=== PATIENT | female | born 1975 | race Caucasian/White ===

== ENCOUNTER 2022-03-08 11:56 | Emergency (ER) | payer BC, SELFPAY ==
[2022-03-08] VITALS (11 sets, daily range): BP systolic 114–141; BP diastolic 77–91; PULSE 68–85; TEMP 36.4; O2SAT 96–100; BMI 32.5
--- OUTSIDE RECORDS SUMMARY | 2022-03-08 12:49 | XMS_ITS | Clinical Summary ---
:1975 Author Organization [facility] Address [address] [place] [address] Care Team Providers Name Role Phone Rohit Donato MD Primary Care Provider Allergies Active Allergy Reactions Severity Noted Date Comments Celecoxib 05/26/2020 Lansoprazole 05/27/2020 Latex 05/26/2020 Swelling, lip i tchiness Sulfa Drugs 05/26/2020 Medications Medication Sig Dispensed Refills Start Date End Date Status prochlorperazine Take 5 mg by 0 Active (COMPAZINE) 5 MG tablet mouth every 4 hours as needed for nausea or vomiting amphetamine-dextroamphet Take 20 mg by 0 Active amine (ADDERALL XR) 20 mouth daily MG 24 hr capsule ondansetron (ZOFRAN) 4 Take 4 mg by 0 Active MG tablet mouth every 6 hours as needed for nausea oxyCODONE-acetaminophen Take 1-2 tablets 0 Active (PERCOCET) 5-325 MG by mouth every 4 tablet hours as needed for severe pain Secukinumab (COSENTYX, 0 Active 300 MG DOSE, SC) tamsulosin (FLOMAX) 0.4 Take 0.4 mg by 0 Active MG capsule mouth daily pantoprazole sodium Take 40 mg by 0 Active (PROTONIX) 40 MG packet mouth daily OLOPATADINE HCL OP Apply 1 drop to 0 Active eye 2 times daily montelukast (SINGULAIR) Take 10 mg by 0 Active 10 MG tablet mouth At Bedtime glucosamine-chondroitin Take 1 capsule 0 Active 500-400 MG CAPS per by mouth daily capsule Flaxseed, Linseed, 0 A ctive (FLAXSEED OIL PO) magnesium oxide 400 MG Take 1 tablet by 0 Active CAPS mouth daily magnesium oxide 200 MG Take 400 mg by 0 Active TABS mouth daily Vitamin D, Take 2 tablets 0 Acti ve Cholecalciferol, 25 MCG by mouth daily (1000 UT) CAPS cetirizine (ZYRTEC) 10 Take 10 mg by 0 Active MG tablet mouth daily Vit-Fe Take 1 tablet by 0 Active Fumarate-FA ( mouth daily MULTIVITAMIN W/IRON) 27-0.8 MG tablet Social History Tobacco Use Types Packs/Day Years Used Date Smoking Tobacco: Never Smokeless Tobacco: Never Alcohol Use Standard Drinks/Week Comments Yes 0 (1 standard drink = 0.6 oz pure alcoho l) Sex Assigned at Date Recorded Not on file Last Filed Vital Signs Vital Sign Reading Time Taken Comments Blood Pressure 118/76 05/30/2020 2:00 PM [employer] Pulse 87 05/30/2020 2:00 PM [employer] Temperature 37.1 ??C (98.8 ??F) 05/30/2020 2:00 PM [employer] Respiratory Rate 16 05/30/2020 2:00 PM [employer] Oxygen Saturation 97% 05/30/2020 2:00 PM [employer] Inhaled Oxygen Concentration - - Weight 102.5 kg (226 lb) 05/30/2020 9:00 AM [employer] Height 175.3 cm (5' 9) 05/30/2020 9:00 AM [employer] Body Mass Index 33.37 05/30/2020 9:00 AM [employer] Plan of Treatment Health Maintenance Due Date Last Done Comments ADVANCE CARE PLANNING 1975 ANNUAL REVIEW OF HM ORDERS 1975 YEARLY PREVENTIVE VISIT 1975 COVID-19 Vaccine (#1) 1975 DTAP/TDAP/TD IMMUNIZATION 1988 07/01/1982, 01/11/1979 , (6 - Tdap) 07/11/1978, Additional history exists HIV SCREENING 1992 HEPATITIS C SCREENING 1995 PAP 1998 HEPATITIS B IMMUNIZATION (4 11/10/2003 10/24/2003, 09/15/19 04, of 4 - 4-dose series) 07/14/2003 PHQ-2 (once per calendar 05/13/2021 year) INFLUENZA VACCINE (#1) 2022 01/31/2009, 02/24/2008, 10/21/1997, Additional history exists IPV IMMUNIZATION Completed 06/02/1996, 06/13/1982, 01/11/1979, Additional history exists MENINGITIS IMMUNIZATION Aged Out 10/24/2003, 06/02/1996 N o longer eligible based on patient 's age to complete this topic Pneumococcal Vaccine: Aged Out No longer eligible Pediatrics (0 to 5 Years) based on patient's age and At-Risk Patients (6 to to co mplete this topic 64 Years) Insurance Payer Benefit Plan / Subscriber ID Effective Dates Phone Addre ss Type Group [place] [id number] 2018-Lyla [phone] [address] [address] [place]emnity t [address] [place] [address] Care Teams [employer] Civil [employer] Relationship Specialty Start Date End Date Rohit Donato MD PCP - General Family Medicine 05/30/20 [facility] [address] [place] [address]
--- OUTSIDE RECORDS SUMMARY | 2022-03-08 12:49 | XMS_ITS | Encounter Summary ---
:1975 Author Organization [place] Address [facility] [place] [address] Care Team Providers Name Role Phone Rohit Donato MD Primary Care Provider Reason for Visit Auth/Cert Specialty Diagnoses / Procedures Referred By Contact Refer red To Contact Surgery Diagnoses Kidney stone Kidney stone [N20.0] Sh Periop Services Procedures HC CYSTO/URETERO W/LITHOTRIPSY &INDWELL STENT INSRT HC FRAGMENTING OF KIDNEY STONE HC CYSTOSCOPY,INSERT URETERAL STENT CYSTOSCOPY, LEFT EXTRACORPOREAL SHOCK WAVE (ESWL), LEFT URETERAL CATHETER PLACEMENT, POSSIBLE URETERA [address] [place] [phone] Phone: Referral ID Status Reason Start Date Expiration Date Visits Requ ested Visits Authorized [id number] 1 1 Encounter Details Date Type Department Care Team Description 05/30/2020 Surgery [facility] Ramez Hutchins C YSTOSCOPY, LEFT [place] [facility] EXTRACORPOREAL SHOCK [facility] WAVE (ESWL), LEFT [address] LTD URETERAL CATHETER [address] [place] [phone] [address] [place] [phone] (Wo rk) Surgery Details Date/Time Status Location OR Service Patient Case Class Case Tr auma Class Type Case? 05/30/20 10:45 Posted OR OR M 15 Urology Same Day AM Surgery Panel 1 Procedure LRB Anes Op Region Wound Class Commen ts CYSTOSCOPY, LEFT Bilateral General Ureter II-Clean Contaminat ed EXTRACORPOREAL SHOCK WAVE (ESWL), LEFT URETERAL CATHETER PLACEMENT Surgeon Surgeon Role Service Panel Ramez Hutchins MD Primary Urology 1 Case Notes LITHO CHARGE ENTERED Special Needs Scheduled [place] Stone lj 05/23Under 297 lbs.[facility] PT STATES COVID POSITIVE 03/18/21 CALLING OFFICE TO GET RESULTS SE NT OVER 03/26/21 AB Unable to confirm laterality-left message on preop call documented in this encounter Social History Tobacco Use Types Packs/Day Years Used Date Smoking Tobacco: Never Smokeless Tobacco: Never Alcohol Use Standard Drinks/Week Comments Yes 0 (1 standard drink = 0.6 oz pure alcoho l) Sex Assigned at Date Recorded Not on file COVID-19 Exposure Response Date Recorded In the last month, have you been in contact with No / Unsure 05/30/2020 8:40 AM COST CONTROLLER someone who was confirmed or suspected to have Coronavirus / COVID-19? documented as of this encounter Last Filed Vital Signs Vital Sign Reading Time Taken Comments Blood Pressure 121/76 05/30/2020 9:00 AM COST CONTROLLER Pulse 70 05/30/2020 9:00 AM COST CONTROLLER Temperature 35.8 ??C (96.4 ??F) 05/30/2020 9:00 AM COST CONTROLLER Respiratory Rate 20 05/30/2020 9:00 AM COST CONTROLLER Oxygen Saturation 99% 05/30/2020 9:00 AM COST CONTROLLER Inhaled Oxygen Concentration - - Weight 102.5 kg (226 lb) 05/30/2020 9:00 AM COST CONTROLLER Height 175.3 cm (5' 9) 05/30/2020 9:00 AM COST CONTROLLER Body Mass Index 33.37 05/30/2020 9:00 AM COST CONTROLLER documented in this encounter Discharge Instructions Discharge InstructionsElyse Coffman RN - 05/30/2020 12:42 PM CST Same Day Surgery Discharge Instructions for Sedation and General Anesthesia ?? It's not unusual to feel dizzy, light-headed or faint for up to 24 hours after surgery or while taking pain medication. If you have these symptoms: sit for a few minutes before standing and have someone assist you when you get up to walk or use the bathroom. ?? You should rest and relax for the next 24 hours. We recommend you make arrangements to have an adult stay with you for at least 24 hours after your discharge. Avoid hazardous and strenuous activity. ?? DO NOT DRIVE any vehicle or operate mechanical equipment for 24 hours following the end of your surgery. Even though you may feel normal, your reactions may be affected by the medication you have received. ?? Do not drink alcoholic beverages for 24 hours following surgery. ?? Slowly progress to your regular diet as you feel able. It's not unusual to feel nauseated and/or vomit after receiving anesthesia. If you develop these symptoms, drink clear liquids (apple juice, jonny mercy, broth, 7-up, etc. ) until you feel better. If your nausea and vomiting persists for 24 hours, please notify your surgeon. ?? All narcotic pain medications, along with inactivity and anesthesia, can cause constipation. Drinking plenty of liquids and increasing fiber intake will help. ?? For any questions of a medical nature, call your surgeon. ?? Do not make important decisions for 24 hours. ?? If you had general anesthesia, you may have a sore throat for a couple of days related to the breathing tube used during surgery. You may use Cepacol lozenges to help with this discomfort. If it worsens or if you develop a fever, contact your surgeon. ?? If you feel your pain is not well managed with the pain medications prescribed by your surgeon, please contact your surgeon's office to let them know so they can address your concerns. Information for Patients Discharging with a Transderm Scopolamine Patch ??? Dry mouth is a common side effect. ??? Drowsiness is another common side effect especially when combined with pain medication. Please avoid activities that require mental alertness such as driving a car or making important legal decisions. ??? Since Scopolamine can cause temporary dilation of the pupils and blurred vision if it comes in contact with the eyes; be sure to wash your hands thoroughly with soap and water immediately after handling the patch. When you remove your patch, please stick it to a tissue or paper towel for disposal. ??? Remove the patch immediately and contact a physician in the unlikely event that you experience symptoms of acute glaucoma (pain and reddening of the eyes, accompanied by dilated pupils). ??? Remove the patch if you develop any difficulties urinating. If you cannot urinate after removingyour patch, please notify your surgeon. ??? Remove the patch 24 hours after surgery. CoVid 19 Information We want to give you information regarding Covid. Please consult your primary care provider with any questions you might have. Patient who have symptoms (cough, fever, or shortness of breath), need to isolate for 7 days from when symptoms started OR 72 hours after fever resolves (without fever reducing medications) AND improvement of respiratory symptoms (whichever is longer). ?? Isolate yourself at home (in own room/own bathroom if possible) ?? Do Not allow any visitors ?? Do Not go to work or school ?? Do Not go to gnosticist, child welfare director centers, shopping, or other public places. ?? Do Not shake hands. ?? Avoid close and intimate contact with others (hugging, kissing). ?? Follow CDC recommendations for household cleaning of frequently touched services. After the initial 7 days, continue to isolate yourself from household members as much as possible. To continue decrease the risk of community spread and exposure, you and any members of your household should limit activities in public for 14 days after starting home isolation. You can reference the following CDC link for helpful home isolation/care tips: https://www.cdc.gov/coronavirus/2019-ncov/downloads/10Things.pdf Protect Others: ?? Cover Your Mouth and Nose with a mask, disposable tissue or wash cloth to avoid spreading germs to others. ?? Wash your hands and face frequently with soap and water Call Your Primary Doctor If: Breathing difficulty develops or you become worse. For more information about COVID19 and options for caring for yourself at home, please visit the CDCwebsite at https://www.cdc.gov/coronavirus/2019-ncov/about/orrni-twgv-xjih.html For more options for care at [facility], please visit our website at [email or web address] DISCHARGE INSTRUCTIONS FOLLOWING EXTRACORPOREAL SHOCK LITHOTRIPSY (ESWL) Your stone(s) has been fragmented into many tiny pieces, which must now pass in your urine. Usually this process is uneventful. Most fragments pass in the first one or two week, but some may continue to pass for three months or more. Some pain or discomfort may accompany the passage of these fragments. To aid in the passage of fragments, drink lots of fluid. Aim for 1 glass an hour for the next 1 to 2weeks (2 quarts or more a day). Most stone patients will benefit from a continued high fluid intake and urine output indefinitely, even after the fragments are gone. This helps prevent new stone formation. Strain your urine. Take the stone fragments to your urologist. They will have them analyzed to help determine the cause of your stone(s). You should walk around and resume every day activities. Activity may help the stone fragments pass. You should, however, avoid sports or really strenuous exercise for about a week, or at least until there is no more blood in your urine. You may resume regular diet. Call your urologist if you have: a. Persistent severe pain not relieved by oral medications. b. Fever (over 101??). c. Persistent vomiting. See your urologist as directed. They will need to take an x-ray to check your progress. Take your stone fragments to your follow-up appointment. If you have questions or concerns about your procedure, call Dr. Hutchins at [phone] CONTROLLER documented in this encounter Medications at Time of Discharge Medication Sig Dispensed Refills Start Date End Date amphetamine-dextroamphetam Take 20 mg by 0 ine (ADDERALL XR) 20 MG 24 mouth daily hr capsule cetirizine (ZYRTEC) 10 MG Take 10 mg by 0 tablet mouth daily Flaxseed, Linseed, 0 (FLAXSEED OIL PO) glucosamine-chondroitin Take 1 capsule by 0 500-400 MG CAPS per mouth daily capsule magnesium oxide 200 MG Take 400 mg by 0 TABS mouth daily magnesium oxide 400 MG Take 1 tablet by 0 CAPS mouth daily montelukast (SINGULAIR) 10 Take 10 mg by 0 MG tablet mouth At Bedtime OLOPATADINE HCL OP Apply 1 drop to 0 eye 2 times daily ondansetron (ZOFRAN) 4 MG Take 4 mg by mouth 0 tablet every 6 hours as needed for nausea oxyCODONE-acetaminophen Take 1-2 tablets 0 (PERCOCET) 5-325 MG tablet by mouth every 4 hours as needed for severe pain pantoprazole sodium Take 40 mg by 0 (PROTONIX) 40 MG packet mouth daily Vit-Fe Take 1 tablet by 0 Fumarate-FA ( mouth daily MULTIVITAMIN W/IRON) 27-0.8 MG tablet prochlorperazine Take 5 mg by mouth 0 (COMPAZINE) 5 MG tablet every 4 hours as needed for nausea or vomiting Secukinumab (COSENTYX, 300 0 MG DOSE, SC) tamsulosin (FLOMAX) 0.4 MG Take 0.4 mg by 0 capsule mouth daily Vitamin D, Take 2 tablets by 0 Cholecalciferol, 25 MCG mouth daily (1000 UT) CAPS cephALEXin (KEFLEX) 500 MG Take 1 capsule 15 capsule 0 05/3006/04/2020 capsuleIndications: (500 mg) by mouth Obstruction of left 3 times daily for ureteropelvic junction 5 days (UPJ) due to stone oxyCODONE (ROXICODONE) 5 Take 1 tablet (5 12 tablet 0 05/3006/02/2020 MG tabletIndications: mg) by mouth every Obstruction of left 6 hours as needed ureteropelvic junction for pain (UPJ) due to stone documented as of this encounter H&P Notes Billy Newton MD - 05/30/2020 9:28 AM CST I have reviewed the surgical (or preoperative) H&P that is linked to this encounter, and examined the patient. There are no significant changes CONTROLLER Source Note - Singh Zuleta - 05/25/2020 1:44 PM COST CONTROLLER documented in this encounter Miscellaneous Notes Op Note - Ramez Hutchins MD - 05/30/2020 2:08 PM CST Procedure Date: 05/30/2020 PROCEDURES PERFORMED: Cystoscopy, left ureteral catheter with stone pushback, left extracorporeal shock wave lithotripsy. PREOPERATIVE DIAGNOSIS: Left proximal ureteral stone. POSTOPERATIVE DIAGNOSIS: Left proximal ureteral stone. DESCRIPTION OF PROCEDURE: Informed consent was obtained from the patient. She was brought to the operating room, given laryngeal mask anesthesia, placed in lithotomy position. Sterile prep and drape were applied and surgical timeout was taken. Cystoscope was introduced and revealed no unusual findingsin the bladder. The ureteral orifices were in normal position and configuration. Open- ended ureteralcatheter, 6-Romanian, was advanced under fluoroscopy up to just below the stone. I then used water to flush the stone back up into the kidney and then once that was accomplished, the ureteral catheter was advanced up to the left renal pelvis. Scope was removed, leaving the ureteral catheter in place andthe ureteral catheter was capped with a syringe and then secured to the skin with tape. The stone was then treated with the lithotripter. A total of 2400 shocks were given with excellent fragmentation.The procedure was terminated with removal of the ureteral catheter. She was taken to recovery room in stable condition. We will send her out with Keflex t.i.d. x 5 days, oxycodone as needed for pain. She will filter the urine at home and follow-up in 4-6 weeks' time with a KUB x-ray. She tolerated theprocedure well and there were no complications and no blood loss. RAMEZ HUTCHINS MD MT: BHARATHI Name: WINSOME MULLEN Account: [id number] : 1975 Procedure Date: 05/30/2020 Document: [id number] cc: Ramez Hutchins MD CONTROLLER Op Note - Ramez Hutchins MD - 05/30/2020 11:41 AM CST [facility]rology Brief Operative Note Pre-operative diagnosis: Left UPJ stone Post-operative diagnosis: Same Procedure: Procedure(s): CYSTOSCOPY, LEFT EXTRACORPOREAL SHOCK WAVE (ESWL), LEFT URETERAL CATHETER PLACEMENT, stone push-back Surgeon: Ramez Hutchins MD, MD Canine Service Teacher(s): none Anesthesia: LMA Estimated blood loss: None Total IV fluids: (See anesthesia record) Blood transfusion: No transfusion was given during surgery Total urine output: (See anesthesia record) Not measured Drains: None Specimens: None Implants: None Findings: Stone manipulated back into the kidney and treated there. Complications: None Condition: Stable Comments: See dictated operative report for full details. Ramez Hutchins MD, MD CONTROLLER documented in this encounter Plan of Treatment Not on filedocumented as of this encounter Procedures Procedure Name Priority Date/Time Associated Diagnosis Comme nts LITHOTRIPSY, 05/30/2020 11:02 AM Kidney stone EXTRACORPOREAL SHOCK WAVE COST CONTROLLER (ESWL), WITH CYSTOSCOPY AND URETERAL STENT INSERTION Case Notes LITHO CHARGE ENTERED Special Needs Scheduled [place] Stone lj Under 297lbs.[facility] PT STATES COVID POSITIVE 03/18/21 CALLING OFF ICE TO GET RESULTS SENT OVER 03/26/21 AB Unable to confirm laterality-left mess age on preop call HCG QUALITATIVE URINE STAT 05/30/2020 9:45 AM COST CONTROLLER LAB RESULT - HIM SCAN 03/18/2020 12:00 AM COST CONTROLLER documented in this encounter Results HCG qualitative urine (05/30/2020 9:45 AM COST CONTROLLER) P athologist Signature HCG Qual Urine Negative NEG^Negati 05/30/2020 [facility] 9:59 AM COST CONTROLLER [facility] Comment: This test is for screening purposes. ??R esults should be interpreted along with the clinical picture. ??Confirmation te sting is available if warranted by ordering [id number], HCG Quantitative Pregna ncy. Specimen Anatomical Collection Method Collection Time Receive d Time (Source) Location / / Volume Laterality Urine specimen URINE SPECIMEN 05/30/2020 9:45 AM 05/30 9:53 (specimen) OBTAINED BY CLEAN COST CONTROLLER AM COST CONTROLLER CATCH PROCEDURE / Unknown Billy Newton MD LAB - URINE ORDERABLES Performing Organization Address City/State/ZIP Code Phon e Number [facility] [address] [place] [address] [facility] [address] [place] [address], U [phone] LAB RESULT - HIM SCAN (03/18/2020 12:00 AM COST CONTROLLER) Specimen (Source) Anatomical Location Collection Method / Collectio n Time Received Time / Laterality Volume 03/18/2020 Narrative This result has an attachment that is no t available. Provider Outside NON-BEAKER LAB TESTING documented in this encounter Visit Diagnoses Diagnosis Obstruction of left ureteropelvic juncti on (UPJ) due to stone - Primary Kidney stone Calculus of kidney documented in this encounter Administered Medications Inactive Administered Medications - up to 3 most recent administrations Medication Order MAR Action Action Date Dose Rate Site fentaNYL (PF) (SUBLIMAZE) Given 05/30/2020 12:48 PM COST CONTROLLER 50 mcg injection 25-50 mcg 25-50 mcg, Intravenous, EVERY 2 MIN PRN, other, acute pain, Starting on Sat05/30/20 at 1224, MAX cumulative dose = 250 mcg. Use fentaNYL (SUBLIMAZE) initially, as a short acting agent for acute pain control. If insufficient, or a longer acting agent is needed, begin morphine or HYDROmorphone (DILAUDID) if ordered. For ordered IV doses 1-100 mcg give IV Push undiluted over a minimum of 3-5 minutes., PACU HYDROmorphone (PF) (DILAUDID) injection Given 05/30/2020 1:05 PM COST CONTROLLER 0.5 mg 0.3-0.5 mg 0.3-0.5 mg, Intravenous, EVERY 5 MIN PRN, other, acute pain. ??May administer if Respiratory Rate is greater than 10, Starting on Sat05/30/20 at 1224, Max cumulative dose = 2 mg If fentaNYL (SUBLIMAZE) is also ordered, use HYDROmorphone (DILAUDID) if pain control insufficient with fentaNYL (SUBLIMAZE) or a longer acting agent is needed. For ordered IV doses 0.1-4 mg give IV Push undiluted. Administer each 2mg over 2-5 minutes., PACU naloxone (NARCAN) injection 0.2 mg 0.2 mg, Intravenous, EVERY 2 MIN PRN, op ioid reversal, Starting on Sat05/30/20 at 1224, For 24 hours, Administer intraveno us route when available and notify provider when administered. For unintended sedati on or respiratory depression if all of the below criteria are met: ~ respiratory ra te LESS than or EQUAL to 8. ~SaO2 less than 92% and or/end-tidal CO2 is greater than 50. ~ the patient is receiving an opioid, has unintended sedations assessed as DL S (-3), and is currently not on mechanical ventilation. RASS scale moderate (-3) is movement or eye opening to voice but no eye contact. Patient Monitoring Once the patient has demonstrated a response to the naloxone, continue to monitor respiratory rate, depth, oxygen saturation and end-tidal CO2 (if available) every 15 mi nutes x 2, then every 30 minutes x 2, then every 1 hour x 1 after each naloxone dose. Consider tr ansfer to ICU if patient respiratory parameters have not improved after 4 nalox one doses. For ordered IV doses 0.1-2mg give IVP. Give each 0.4mg over 15 seconds in emergency situations. For non-emergent situations further dilu te in 9mL of NS to facilitate titration of response., Post-procedure naloxone (NARCAN) injection 0.2 mg 0.2 mg, Intramuscular, EVERY 2 MIN PRN, opioid reversal, Starting on Sat05/30/20 at 1224, For 24 hours, Administer intramuscular if an int ravenous route is not available and notify provider when administered. For u nintended sedation or respiratory depression if all of the below criteria ar e met: ~ respiratory rate LESS than or EQUAL to 8. ~SaO2 less than 92% and or/end-tidal CO2 is greater than 50. ~ the patient is receiving an opioid , has unintended sedations assessed as RASS (-3), and is currently not on mechanical ventilation. RASS scale moderate (-3) is movement or eye opening to voice but no eye contact. Patient Monitoring Once the patient has demonstrated a response to the naloxone, c ontinue to monitor respiratory rate, depth, oxygen saturati on and end-tidal CO2 (if available) every 15 minutes x 2, then every 30 minutes x 2, then every 1 hour x 1 after each naloxone dose. Consider transfer to ICU if patient respiratory parameters have not improved after 4 naloxone doses. For ord ered IV doses 0.1-2mg give IVP. Give each 0.4mg over 15 seconds in emergency situa tions. For non-emergent situations further dilute in 9mL of NS to facilitate titration of respons e., Post-procedure naloxone (NARCAN) injection 0.4 mg 0.4 mg, Intravenous, EVERY 2 MIN PRN, op ioid reversal, Starting on Sat05/30/20 at 1224, For 24 hours, Administer intraveno us route when available and notify provider when administered. For unintended sedati on or respiratory depression if all of the below criteria are met: ~ respiratory rate LESS than o r EQUAL to 8. ~ SaO2 less than 92% and or/end-tidal CO2 is greater than 50. ~ th e patient is receiving an opioid, has unintended sedation assessed as RASS (-4) or (-5) and patient is currently not on mechanical ventilation. RASS scale (-4) is deep sedation with no response to voice but movement or eye op ening to physical stimulation. RASS scale (-5) is unarousable. Patient Monitoring Once the patie nt has demonstrated a response to the naloxone, continue to monitor respirat ory rate, depth, oxygen saturation and end-tidal CO2 (if available) every 15 m inutes x 2, then every 30 minutes x 2, then every 1 hour x 1 after each naloxone dose. Consider transfer to ICU if patient respiratory parameters hurtado ve not improved after 4 naloxone doses. For ordered IV doses 0.1-2mg give IVP. Give each 0.4mg ove r 15 seconds in emergency situations. For non-emergent situations further dilute in 9mL of NS to facilitate titration of response., Post-procedure naloxone (NARCAN) injection 0.4 mg 0.4 mg, Intramuscular, EVERY 2 MIN PRN, opioid reversal, Starting on Sat05/30/20 at 1224, For 24 hours, Administer intramuscular if an int ravenous route is not available and notify provider when administered. For u nintended sedation or respiratory depression if all of the below criteria ar e met: ~ respiratory rate LESS than or EQUAL to 8. ~ SaO2 less kristen n 92% and or/end-tidal CO2 is greater than 50. ~ the patient is receiving an opioid , has unintended sedation assessed as RASS (-4) or (-5) and patient is currently not on mechanica l ventilation. RASS scale (-4) is deep sedation with no response to voice but mo vement or eye opening to physical stimulation. RASS scale (-5) is unarousable. Patient Monitoring Once the patient has demonstrated a response to the naloxone, c ontinue to monitor respiratory rate, depth, oxygen saturati on and end-tidal CO2 (if available) every 15 minutes x 2, then every 30 minutes x 2, then every 1 hour x 1 after each naloxone dose. Consider transfer to ICU if patient respiratory parameters have not improved after 4 naloxone doses. For ord ered IV doses 0.1-2mg give IVP. Give each 0.4mg over 15 seconds in emergency situa tions. For non-emergent situations further dilute in 9mL of NS to facilitate titration of respons e., Post-procedure ondansetron (ZOFRAN) injection 4 mg Given 05/30/2020 12:53 PM COST CONTROLLER 4 mg 4 mg, Intravenous, EVERY 30 MIN PRN, nausea, Administer over 2-5 Minutes, Starting on Sat05/30/20 at 1224, For 2 doses, MAX total dose = 8 mg, including OR dosing. If not resolved in 15 minutes, then go to step 2 [prochlorperazine (COMPAZINE), if ordered]. Irritant. For ordered IV doses 0.1-4 mg, give IV Push undiluted over 2-5 minutes., PACU oxyCODONE (ROXICODONE) tablet 5 mg Given 05/30/2020 1:15 PM COST CONTROLLER 5 mg 5 mg, Oral, ONCE, On Sat05/30/20 at 1230, For 1 dose, May administer ONCE as needed for pain control or improvement in physical function.??Notify provider to assess for uncontrolled pain or?? analgesic side effects., Post-procedure scopolamine (TRANSDERM) Patch/Med Applied 05/30/2020 9:39 AM 1 patch Behind Left Ear 72 hr patch 1 patch COST CONTROLLER 1 patch, Transdermal, ONCE, Administer over 24 Hours, On Sat05/30/20 at 1000, For 1 dose, Apply patch to skin, behind ear. Place in Pre-Op. Remove patch after 24 hours. Each 1.5 mg patch delivers 1 mg of scopolamine. Reminder: Remove previous patch before applying new patch., Pre-procedure scopolamine (TRANSDERM-SCOP) Patch in Pl [place] First dose on Sat05/30/20 at 1800, For 2 4 hours, Chart every shift, confirming that patch is still in place on patient (no b arcode scan needed). See patch order for dose information., Post-procedure scopolamine (TRANSDERM-SCOP) patch REMOV AL On Sat05/31/20 at 1600, For 1 dose, Remove at 16:00 on POD 1., Post-procedure sterile water (bottle) Given 05/30/2020 11:32 AM 3,000 mLs Operative irrigation COST CONTROLLER Site/Surgical S ite PRN, Intra-procedure, Starting on Sat05/30/20 at 1132, Until Sat05/30/20 at 1334 documented in this encounter Active and Recently Administered Medications Times are shown in COST CONTROLLER. Scheduled Medication Order 05/28/2020 05/29/2020 05/30/2020 ceFAZolin (ANCEF) intermittent infusion 2 g in 100 mL dextrose PRE-MIX (COMPLETED) 1120 (Given - Provid er: Karine Maher APRN CRNA) Routine, 2 g, Intravenous, PRE-OP/PRE-OK OCEDURE, Starting Sat05/30/20 at 0905, For 1 dose, Give first dose within 1 hour PRIOR to incision. If patient weight is greater than or equal to 120 kg increase dose to 3 g., Indications: Perioperative Pharmacoprophylaxis, Pr e-procedure oxyCODONE (ROXICODONE) tablet 5 mg (COMPLETED) 1315 (Given - Provider: Kina Calixto RN) 5 mg, Oral, ONCE, Sat05/30/20 at 1230, F or 1 dose, May administer ONCE as needed for pain control or improvement in physical function.??Notify provider to assess for uncontrolled pain or?? analgesic side effects., Post-procedure scopolamine (TRANSDERM) 72 hr patch 1 patch 0939 (Patch/Med Applied - Provider: Neftali Mccann RN)1408 (Due: Patch/Med Removed - Provider: Orders Generic Provider - Comment: Time automatically adjusted from order being discontinued) 1 patch, Transdermal, ONCE, Administer o katy 24 Hours, Sat05/30/20 at 1000, For 1 dose, Apply patch to skin, behind ear. Place in Pre-Op. Remove patch after 24 hours. Each 1.5 mg patch delivers 1 mg of s copolamine. Reminder: Remove previous pa tch before applying new patch., Pre-procedure scopolamine (TRANSDERM-SCOP) Patch in Place First dose on Sat05/30/20 at 1800, For 2 4 hours, Chart every shift, confirming that patch is still in place on patient (no barcode scan needed). See patch order for dose information., Post-procedure scopolamine (TRANSDERM-SCOP) patch REMOVAL 05/31/20 at 1600, For 1 dose, Remove at 16:00 on POD 1., Post -procedure PRN Medication Order 05/28/2020 05/29/2020 05/30/2020 fentaNYL (PF) (SUBLIMAZE) injection 25-50 mcg (CANCELED) 1248 (Given - Provider: Elyse Coffman RN) 25-50 mcg, Intravenous, EVERY 2 MIN PRN, other, acute pain, Starting 05/30/20 at 1224, MAX cumulative dose = 250 mcg. Use fentaNYL (SUBLIMAZE) initially, as a short acting agent for acute pain contro l. If insufficient, or a longer acting a gent is needed, begin morphine or HYDROmorphone (DILAUDID) if ordered. For ordered IV doses 1-100 mcg give IV Push undiluted over a minimum of 3-5 minutes., PACU HYDROmorphone (PF) (DILAUDID) injection 0.3-0.5 mg (CANCELED) 1305 (Given - Provider: Kina Calixto RN) 0.3-0.5 mg, Intravenous, EVERY 5 MIN PRN , other, acute pain. ??May administer if Respiratory Rate is greater than 10, Starting 05/30/20 at 1224, Max cumulative dose = 2 mg If fentaNYL (SUBLIMAZE) is also ordered, use HYDROmorphone (DILAUDI D) if pain control insufficient with fentaNYL (SUBLIMAZE) or a longer acting agent is needed. For ordered IV doses 0.1-4 mg give IV Push undiluted. Administer each 2mg over 2-5 minutes., PACU naloxone (NARCAN) injection 0.2 mg 0.2 mg, Intravenous, EVERY 2 MIN PRN, op ioid reversal, Starting Sat05/30/20 at 1224, For 24 hours, Administer intravenous route when available and notify provider when administered. For unintended sedat ion or respiratory depression if all of the below criteria are met: ~ respiratory rate LESS than or EQUAL to 8. ~SaO2 less than 92% and or/end-tidal CO2 is greater than 50. ~ the patient is receiving an opioid, has unintended sedations assess ed as RASS (-3), and is currently not on mechanical ventilation. RASS scale moderate (-3) is movement or eye opening to voice but no eye contact. Patient Monitori ng Once the patient has demonstrated a r esponse to the naloxone, continue to monitor respiratory rate, depth, oxygen saturation and end-tidal CO2 (if available) every 15 minutes x 2, then every 30 minut es x 2, then every 1 hour x 1 after each naloxone dose. Consider transfer to ICU if patient respiratory parameters have not improved after 4 naloxone doses. For ordered IV doses 0.1-2mg give IVP. Give e ach 0.4mg over 15 seconds in emergency s ituations. For non-emergent situations further dilute in 9mL of NS to facilitate titration of response., Post-procedure naloxone (NARCAN) injection 0.2 mg 0.2 mg, Intramuscular, EVERY 2 MIN PRN, opioid reversal, Starting 05/30/20 at 1224, For 24 hours, Administer intramuscular if an intravenous route is not available and notify provider when administer ed. For unintended sedation or respirato ry depression if all of the below criteria are met: ~ respiratory rate LESS than or EQUAL to 8. ~SaO2 less than 92% and or/end-tidal CO2 is greater than 50. ~ the patient is receiving an opioid, has uni ntended sedations assessed as RASS (-3), and is currently not on mechanical ventilation. RASS scale moderate (-3) is movement or eye opening to voice but no eye c ontact. Patient Monitoring Once the moshe ent has demonstrated a response to the naloxone, continue to monitor respiratory rate, depth, oxygen saturation and end-tidal CO2 (if available) every 15 minutes x 2, then every 30 minutes x 2, then niels ry 1 hour x 1 after each naloxone dose. Consider transfer to ICU if patient respiratory parameters have not improved after 4 naloxone doses. For ordered IV doses 0.1-2mg give IVP. Give each 0.4mg over 1 5 seconds in emergency situations. For non-emergent situations further dilute in 9mL of NS to facilitate titration of response., Post-procedure naloxone (NARCAN) injection 0.4 mg 0.4 mg, Intravenous, EVERY 2 MIN PRN, op ioid reversal, Starting 05/30/20 at 1224, For 24 hours, Administer intravenous route when available and notify provider when administered. For unintended sedat ion or respiratory depression if all of the below criteria are met: ~ respiratory rate LESS than or EQUAL to 8. ~ SaO2 less than 92% and or/end-tidal CO2 is greater than 50. ~ the patient is receiving a n opioid, has unintended sedation assess ed as RASS (-4) or (-5) and patient is currently not on mechanical ventilation. RASS scale (-4) is deep sedation with no response to voice but movement or eye ope yusef to physical stimulation. RASS scale (-5) is unarousable. Patient Monitoring Once the patient has demonstrated a response to the naloxone, continue to monitor respiratory rate, depth, oxygen saturat ion and end-tidal CO2 (if available) niels ry 15 minutes x 2, then every 30 minutes x 2, then every 1 hour x 1 after each naloxone dose. Consider transfer to ICU if patient respiratory parameters have not improved after 4 naloxone doses. For ord ered IV doses 0.1-2mg give IVP. Give each 0.4mg over 15 seconds in emergency situations. For non-emergent situations further dilute in 9mL of NS to facilitate titration of response., Post-procedure naloxone (NARCAN) injection 0.4 mg 0.4 mg, Intramuscular, EVERY 2 MIN PRN, opioid reversal, Starting Sat05/30/20 at 1224, For 24 hours, Administer intramuscular if an intravenous route is not available and notify provider when administer ed. For unintended sedation or respirato ry depression if all of the below criteria are met: ~ respiratory rate LESS than or EQUAL to 8. ~ SaO2 less than 92% and or/end-tidal CO2 is greater than 50. ~ th e patient is receiving an opioid, has un intended sedation assessed as RASS (-4) or (-5) and patient is currently not on mechanical ventilation. RASS scale (-4) is deep sedation with no response to voice but movement or eye opening to physical stimulation. RASS scale (-5) is unarousable. Patient Monitoring Once the patient has demonstrated a response to the naloxone, continue to monitor respiratory rat e, depth, oxygen saturation and end-tida l CO2 (if available) every 15 minutes x 2, then every 30 minutes x 2, then every 1 hour x 1 after each naloxone dose. Consider transfer to ICU if patient respirat ory parameters have not improved after 4 naloxone doses. For ordered IV doses 0.1-2mg give IVP. Give each 0.4mg over 15 seconds in emergency situations. For non-emergent situations further dilute in 9mL of NS to facilitate titration of response., Post-procedure ondansetron (ZOFRAN) injection 4 mg (CANCELED) 1253 (Given - Provider: Elyse Coffman RN) 4 mg, Intravenous, EVERY 30 MIN PRN, souleymane sea, Administer over 2-5 Minutes, Starting 05/30/20 at 1224, For 2 doses, MAX total dose = 8 mg, including OR dosing. If not resolved in 15 minutes, then go to step 2 [prochlorperazine (COMPAZINE), i f ordered]. Irritant. For ordered IV doses 0.1-4 mg, give IV Push undiluted over 2-5 minutes., PACU sterile water (bottle) irrigation (CANCELED) 1132 (Given - Provider: Ramez Hutchins MD - Comment: CYSTOSCOPY) PRN, Intra-procedure, Starting Sat05/30/20 at 1132, Until Sat at 1334 documented in this encounter Care Teams Truck Technician Relationship Specialty Start Date End Date Rohit Donato MD PCP - General Family Medicine 05/30/20 [facility] [address] [place] [address] documented as of this encounter
--- OUTSIDE RECORDS SUMMARY | 2022-03-08 12:49 | XMS_ITS | Encounter Summary ---
:1975 Author Organization [place] Address [facility] [place] [address] Care Team Providers Name Role Phone Rohit [...] URETERAL CATHETER PLACEMENT, POSSIBLE URETERA [address], [address] [place] [address] Phone: Referral ID Status Reason Start Date Expiration Date Visits Requ ested Visits Authorized [id number] 1 1 Encounter Details Date Type Department Care Team Description 05/30/[address] [facility] Billy Newton MD [facility] [address] [place] [address] [place] [facility] Negra Walker, TITI CERTIFIED TECHNICIAN SPECIALIST [address] [id number] Services [address] [place] [address] Anesthesia Record Procedure Summary Procedure Name Responsible Anesthesia Start Anesthesia Stop Anesthesiologist Time Time CYSTOSCOPY, LEFT Billy Newton MD 05/30/20 1112 1233 EXTRACORPOREAL SHOCK WAVE (ESWL), LEFT URETERAL CATHETER PLACEMENT (Bilateral: Ureter) Events Date Time Event Comment 05/30/2020 0932 1112 An Start 1112 An Start Data 1112 Quick Note Linda MITCHELL present 1117 An Induction 1119 An LMA 1132 AN INCISION 1223 LMA Removed 1224 an stop data 1233 An Stop Electronically s igned by Negra Walker APRN CRNA on May 30, 2020 12:33 PM Name Total dexamethasone 4mg/mL 4 mg ePHEDrine 5 mg/mL 15 mg fentaNYL (SUBLIMAZE) injection 100 mcg lidocaine 2% 80 mg midazolam 1mg/mL 2 mg ondansetron 2mg/mL 4 mg phenylephrine (LOYDA-SYNEPHRINE) injection 100 mcg propofol (DIPRIVAN) injection 10 mg/mL vial 200 mg propofol infusion (mcg/kg/min) 175.28 mg ceFAZolin (ANCEF) intermittent infusion 2 g in 100 mL dextrose PRE-MIX 2 g LR 1,000 mL Agents Name NO HELIOX O2 N2O Air Exp Sevoflurane Exp Isoflurane Exp Desflurane Exp N2O O2 Delivery Device Ins Sevoflurane Ins Isoflurane Ins Desflurane O2 Auxiliary Blood No blood administrations on file. Lines, Drains, and Airways Type Details Placement Removal Peripheral IV 05/30/20; 0954; 20 G; 05/30/20 0954 by 05/30/20 1404 by BD; Left; Hand; Neftali Mccann RN Bond, Rose mary Chlorhexidine; JANA Petit Injectable; Tolerated well Ureteral Drain/Stent 05/30/20; 1118; Left 05/30/20 1118 by 05/30 1218 by ureter; 6 fr Shyann Schwartz RN Fra, Natasha Clark RN Supraglottic Airway Placement Date: 05/30/20 1119 by ry, 05/30 1223 by 05/30/20; Placement Stella Sierra cca, Time: 111 (created TITI Valdovinos CRNA, APRN NA via procedure documentation); Airway Type: Standard LMA; Mask Ventilation: 0; LMA Size: 4; Airway Brand: LMA Unique; Attempts: 1 documented in this encounter Social History Tobacco [...] with No / Unsure 05/30/2020 8:40 AM MAINTENANCE TEAM MEMBER someone who was confirmed or suspected to have Coronavirus / COVID-19? documented as of this encounter OR Notes Anesthesia Postprocedure Evaluation - Billy Newton MD - 05/30/2020 2:53 PM CST Patient: Winsome Angulo Procedure(s): CYSTOSCOPY, LEFT EXTRACORPOREAL SHOCK WAVE (ESWL), LEFT URETERAL CATHETER PLACEMENT Diagnosis:Kidney stone [N20.0] Diagnosis Additional Information: No value filed. Anesthesia Type: General Note: Disposition: Outpatient Postop Pain Control: Uneventful Sign Out: Well controlled pain PONV: Neuro/Psych: Uneventful Sign Out: Acceptable/Baseline neuro status Airway/Respiratory: Uneventful Sign Out: Acceptable/Baseline resp. status CV/Hemodynamics: Uneventful Sign Out: Acceptable CV status Other NRE: NONE DID A NON-ROUTINE EVENT OCCUR? No Last vitals: Vitals: 05/30/20 1320 05/30/20 1325 05/30/20 1400 BP: 128/50 123/79 118/76 Pulse: 68 78 87 Resp: 16 16 16 Temp: 36.3 ??C (97.3 ??F) 36.2 ??C (97.2 ??F) 37.1 ??C (98.8 ??F) SpO2: 97% 99% 97% Electronically Signed By: Billy Newton MD May 30, 2020 2:53 PM TENANCE TEAM MEMBER Anesthesia Procedure Notes - Karine Maher APRN CRNA - 05/30/2020 11:33 AM CSTAssociated Order(s): Airway Airway Date/Time: 05/30/2020 11:19 AM Patient location during procedure: OR Staff - Anesthesiologist: Guille Cuevas MD CERTIFIED TECHNICIAN SPECIALIST: Karine Maher APRN CERTIFIED TECHNICIAN SPECIALIST Performed By: CERTIFIED TECHNICIAN SPECIALIST Consent for Airway Urgency: elective Indications and Patient Condition Indications for airway management: alfred-procedural Induction type:intravenousMask difficulty assessment: 0 - not attempted Final Airway Details Final airway type: supraglottic airway Endotracheal Airway Details Secured with: pink tape Post intubation assessment Placement verified by: capnometry, equal breath sounds and chest rise Number of attempts at approach: 1 Number of other approaches attempted: 0 Secured with:pink tape Ease of procedure: easy Dentition: Intact and Unchanged TENANCE TEAM MEMBER Anesthesia Preprocedure Evaluation - Billy Newton MD - 05/30/2020 9:29 AM CST Anesthesia Pre-Procedure Evaluation Patient: Winsome Angulo : 1975 Preoperative Diagnosis: Kidney stone [N20.0] Procedure : Procedure(s): CYSTOSCOPY, LEFT EXTRACORPOREAL SHOCK WAVE (ESWL), LEFT URETERAL CATHETER PLACEMENT, POSSIBLE URETERAL STENT PLACEMENT Past Medical History: Diagnosis Date ??? ADD (attention deficit disorder) ??? Adenomatous colon polyp ??? Back pain ??? Cervical pain ??? Chronic urticaria ??? Kidney stone ??? Motion sickness ??? Ovarian cyst ??? PONV (postoperative nausea and vomiting) ??? Psoriasis ??? Psoriatic arthritis (H) ??? Renal colic on left side ??? Shoulder pain No past surgical history on file. Allergies Allergen Reactions ??? Celecoxib ??? Lansoprazole ??? Latex Swelling, lip itchiness ??? Sulfa Drugs Social History Tobacco Use ??? Smoking status: Never Smoker ??? Smokeless tobacco: Never Used Substance Use Topics ??? Alcohol use: Yes Wt Readings from Last 1 Encounters: No data found for Wt Anesthesia Evaluation ROS/MED HX ENT/Pulmonary: (+) allergic rhinitis, (-) tobacco use and sleep apnea Neurologic: - neg neurologic ROS Cardiovascular: - neg cardiovascular ROS METS/Exercise Tolerance: >4 METS Hematologic: Musculoskeletal: Comment: Psoriatic arthritis (+) arthritis, GI/Hepatic: (+) GERD, Asymptomatic on medication, Renal/Genitourinary: (+) Nephrolithiasis , (-) renal disease Endo: (+) Obesity, (-) Type II DM and thyroid disease Psychiatric/Substance Use: (+) psychiatric history Infectious Disease: Comment: Covid 19 in 04/01. Asymptomatic now. Malignancy: (-) malignancy Other: OUTSIDE LABS: CBC: No results found for: WBC, HGB, HCT, PLT BMP: No results found for: NA, POTASSIUM, CHLORIDE, CO2, BUN, CR, GLC COAGS: No results found for: PTT, INR, FIBR POC: No results found for: BGM, HCG, HCGS HEPATIC: No results found for: ALBUMIN, PROTTOTAL, ALT, AST, GGT, ALKPHOS, BILITOTAL, BILIDIRECT, DOROTHY OTHER: No results found for: PH, LACT, A1C, DAVID, PHOS, MAG, LIPASE, AMYLASE, TSH, T4, T3, CRP, SED Anesthesia Plan History & Physical Review ASA Status: 2. NPO Status: NPO Appropriate. . Plan for General with Intravenous induction. Device: LMA Maintenance will be Balanced. PONV prophylaxis: Ondansetron (or other 5HT-3), Dexamethasone or Solumedrol and Scopolamine patch. H/O motion sickness. Consents Anesthesia Plan(s) and associated risks, benefits, and realistic alternatives discussed. Questions answered and patient/care support representative(s) expressed understanding. Discussed with: Patient. Extended Intubation/Ventilatory Support Discussed No No Use of blood products discussed: No. Postoperative Care Postoperative pain management: Multi-modal analgesia. Billy Newton MD TENANCE TEAM MEMBER documented in this encounter Miscellaneous Notes Anesthesia Care Transfer Note - Negra Walker APRN CERTIFIED TECHNICIAN SPECIALIST - 05/30/2020 12:32 PM CST Patient: Winsome Angulo Procedure(s): CYSTOSCOPY, LEFT EXTRACORPOREAL SHOCK WAVE (ESWL), LEFT URETERAL CATHETER PLACEMENT Diagnosis: Kidney stone [N20.0] Diagnosis Additional Information: No value filed. Anesthesia Type: General Note: Oropharynx: oropharynx clear of all foreign objects and spontaneously breathing Level of Consciousness: awake Oxygen Supplementation: face mask Level of Supplemental Oxygen: 8 Independent Airway: airway patency satisfactory and stable Dentition: dentition unchanged Vital Signs Stable: post-procedure vital signs reviewed and stable Report to RN Given: handoff report given Patient transferred to: PACU Handoff Report: Identifed the Patient, Identified the Reponsible Provider, Reviewed the pertinent medical history, Discussed the surgical course, Reviewed Intra-OP anesthesia mangement and issues during anesthesia, Set expectations for post-procedure period and Allowed opportunity for questions and acknowledgement of understanding Vitals: (Last set prior to Anesthesia Care Transfer) LYLY VITALS 05/30/2020 1154 - 05/30/2020 1232 05/30/2020 NIBP: 129/50 Pulse: 95 NIBP Mean: 104 Ht Rate: 92 SpO2: 99 % Resp Rate (set): 10 Electronically Signed By: Negra Walker APRN CRNA May 30, 2020 12:32 PM TENANCE TEAM MEMBER documented in this encounter Plan of Treatment Not on filedocumented as of this encounter Procedures Procedure Name Priority Date/Time Associated Comments Diagnosis ANE AIRWAY Routine 05/30/2020 11:33 Results for this SUPRAGLOTTIC AM MAINTENANCE TEAM MEMBER procedure are i n PERFORMABLE the results section. documented in this encounter Results ANE AIRWAY SUPRAGLOTTIC PERFORMABLE (05/30/2020 11:33 AM MAINTENANCE TEAM MEMBER) Narrative Karine Maher APRN CRNA - 05/30/2020 11:33 AM MAINTENANCE TEAM MEMBER Karine Maher APRN CRNA ? 05/30/2020 11:34 AM Airway Date/Time: 05/30/2020 11:19 AM Patient location during procedure: OR Staff - Anesthesiologist: ??Guille Cuevas MD CERTIFIED TECHNICIAN SPECIALIST: Karine Maher APRN CRNA Performed By: LYLY Consent for Airway Urgency: elective Indications and Patient Condition Indications for airway management: alfred- procedural Induction type:intravenousMask difficult y assessment: 0 - not attempted Final Airway Details Final airway type: supraglottic airway Endotracheal Airway Details Secured with: pink tape Post intubation assessment Placement verified by: capnometry, equal breath sounds and chest rise Number of attempts at approach: 1 Number of other approaches attempted: 0 Secured with:pink tape Ease of procedure: easy Dentition: Intact and Unchanged Billy Newton MD DC ANESTHESIA documented in this encounter Visit Diagnoses Not on filedocumented in this encounter Administered Medications Inactive Administered Medications - up to 3 most recent administrations Medication Order MAR Action Action Date Dose Rate Site ceFAZolin (ANCEF) intermittent Given 05/30/2020 11:20 AM MAINTENANCE TEAM MEMBER 2 g infusion 2 g in 100 mL dextrose PRE-MIX Routine, 2 g, Intravenous, PRE-OP/PRE-PROCEDURE, Starting on Sat05/30/20 at 0905, For 1 dose, Give first dose within 1 hour PRIOR to incision. If patient weight is greater than or equal to 120 kg increase dose to 3 g., Indications: Perioperative Pharmacoprophylaxis, Pre-procedure dexamethasone (DECADRON) injection Given 05/30/2020 11:27 AM MAINTENANCE TEAM MEMBER 4 mg PRN, Administer over 1 Minutes, Starting on Sat05/30/20 at 1127, Anesthesia Intra-op ePHEDrine injection Given 05/30/2020 11:57 AM MAINTENANCE TEAM MEMBER 5 mg PRN, Starting on Sat05/30/20 at 1135, Anesthesia Intra-op Given 05/30/2020 11:39 AM MAINTENANCE TEAM MEMBER 5 mg Given 05/30/2020 11:35 AM MAINTENANCE TEAM MEMBER 5 mg fentaNYL (PF) (SUBLIMAZE) injection Given 05/30/2020 12:25 PM MAINTENANCE TEAM MEMBER 50 mcg PRN, Administer over 3-5 Minutes, Starting on Sat05/30/20 at 1117, Anesthesia Intra-op Given 05/30/2020 11:17 AM MAINTENANCE TEAM MEMBER 50 mcg lactated ringers infusion New Bag 05/30/2020 12:15 PM MAINTENANCE TEAM MEMBER Intravenous, CONTINUOUS PRN, Anesthesia Intra-op, Starting on Sat05/30/20 at 1112, Until Sat05/30/20 at 1233 New Bag 05/30/2020 11:12 AM MAINTENANCE TEAM MEMBER lidocaine 2% injection (MDV) Given 05/30/2020 11:17 AM MAINTENANCE TEAM MEMBER 80 mg PRN, Starting on Sat05/30/20 at 1117, Anesthesia Intra-op midazolam (VERSED) injection Given 05/30/2020 11:12 AM MAINTENANCE TEAM MEMBER 2 mg Administer over 2 Minutes, PRN, Starting on Sat05/30/20 at 1112, Anesthesia Intra-op ondansetron (ZOFRAN) injection Given 05/30/2020 12:07 PM MAINTENANCE TEAM MEMBER 4 mg PRN, Administer over 2-5 Minutes, Starting on Sat05/30/20 at 1207, Anesthesia Intra-op phenylephrine (LOYDA-SYNEPHRINE) injection New Bag 05/30/2020 12:03 PM MAINTENANCE TEAM MEMBER 100 mcg CONTINUOUS PRN, Starting on Sat05/30/20 at 1203, Anesthesia Intra-op propofol (DIPRIVAN) infusion New Bag 05/30/2020 11:20 AM 30 mcg/kg/min 18.5 mL/hr Intravenous, CONTINUOUS PRN, MAINTENANCE TEAM MEMBER Starting on Sat05/30/20 at 1120, Anesthesia Intra-op propofol (DIPRIVAN) injection 10 mg/mL v ial Given 05/30/2020 11:17 AM MAINTENANCE TEAM MEMBER 200 mg PRN, Starting on Sat05/30/20 at 1117, Anesthesia Intra-op documented in this encounter Care Teams Housing Coordinator Relationship Specialty Start Date End Date Rohit Donato MD PCP - General Family Medicine 05/30/20 [facility] [address] [place] [place] [address] documented as of this encounter
--- OUTSIDE RECORDS SUMMARY | 2022-03-08 12:49 | XMS_ITS | Clinical Summary ---
:1975 Author Organization [facility] [place] [address] Care Team Providers Name Role Phone Mitul Donato MD Primary Care Provider Allergies Active Allergy Reactions Severity Noted Date Comments Celecoxib Edema 04/29/2008 Lansoprazole 07/22/2008 Latex Dermatitis Omeprazole Hives 02/19/2008 Sulfa (Sulfonamide Antibiotics) Medications Medication Sig Dispensed Refills Start Date End Date Status DME Adjustable monitor stand for work computer. 1 Each 0 07/11/2009 Active Use daily to help with posture to protect neck. Take 1 tablet by 0 01/27/2010 Ac tive Rirwdfsp-Tl-Iuq-Fe-FA mouth once ( VITAMIN) Tab daily. tablet COSENTYX PEN, 2 PENS, 0 12/09/2018 Active 150 mg/mL pnij Phentermine HCl 37.5 mg TK 1 C PO ONCE D 2 9 Active capsule dextroamphetamine-amphet TK 1 T PO D 0 11/14/2018 Active amine (ADDERALL) 20 mg tablet montelukast (SINGULAIR) TK 1 T PO HS 5 10/15/2018 Active 10 mg tablet olopatadine (PAZEO) 0.7 Place into the 0 Active % ophthalmic solution eye(s). cyclobenzaprine Take 1 tablet by 36 tablet 2 12/18/2018 Active (FLEXERIL) 10 mg mouth 3 times tabletIndications: S/P daily if needed cervical spinal fusion, for Muscle Cervical myofascial pain Spasm. syndrome, Cervical radiculitis methylPREDNISolone Take by mouth as 1 Package 0 12/18/2018 Active (MEDROL, ELEANOR,) 4 mg instructed per tabletIndications: packaging. Cervical radiculitis Active Problems Problem Noted Date Controlled substance agreement signed 05-19-08 ERX 04/22 S/P cervical C5-7 fusion 03/04/2014 Cervical myofascial pain syndrome 03/04/2014 Cervical radiculitis 03/19/2012 GERD (gastroesophageal reflux disease) 03/19/2008 Displacement of cervical intervertebral disc without m yelopathy 12/04/2006 Resolved Problems Problem Noted Date Resolved Date Fusion of spine of cervical region 03/19/201203/04 Narcotic Contract on File 05/19/2008 01/12/2009 Overview: Oxycontin 20 three times daily, and perc ocet 7.5/ 5 a day breakthrough pain. Backache, unspecified 07/22/2006 03/04/2014 Cervicalgia 07/22/2006 03/04/2014 Overview: W/C DOI 07/13/06 Immunizations Name Administration Dates Next Due DTaP 07/01/1982, 01/11/1979, 07/11/1978, 1977, 1975 HepA-HepB (Twinrix) 10/24/2003 Hepatitis A, Unspecified 12/20/2001 Hepatitis B (Adult) 09/15/2003, 07/14/2003 Influenza Virus, Unspecified 01/31/2009, 10/21/1997, 997 Influenza, IIV3 (Age 6-35 mos) 04/30/2014, 02/04/2013, 03/24, 03/23/2011, 02/14/2010 Influenza, IIV3 (Age >=3 years) 02/24/2008 MMR 06/02/1996, 08/31/1994, 07/11/1978 Meningococcal Vaccine (Menomune) 10/24/2003, 06/02/1996 Polio Virus, Unspecified 06/02/1996, 06/13/1982, 01/11/1979, 07/11/1978, 1977 Td (Age >=7 Years) 10/08/1995 Tdap 03/12/2013, 07/25/2007 Family History Medical History Relation Name Comments Allergies Father Arthritis Maternal Grandfather Alcohol/Drug Maternal Grandmother Arthritis Maternal Grandmother Osteoporosis Maternal Grandmother Alcohol/Drug Mother Allergies Mother Cancer Mother skin, basal cell Arthritis Paternal Grandfather Heart Disease Paternal Grandfather Hyperlipidemia Paternal Grandfather Hypertension Paternal Grandfather Arthritis Paternal Grandmother Heart Disease Paternal Grandmother at age 56 Hyperlipidemia Paternal Grandmother Hypertension Paternal Grandmother Allergies Sister 1 Cancer Sister 2 basal cell Relation Name Status Comments Father Maternal Grandfather Maternal Grandmother Mother Paternal Grandfather Paternal Grandmother Sister 1 Sister 2 Social History Tobacco Use Types Packs/Day Years Used Date Former Smoker Quit: 12/04/19 05 Smokeless Tobacco: Never Used Tobacco Cessation: Counseling Given: Yes Comments: 2004 Alcohol Use Standard Drinks/Week Comments Yes 0 (1 standard drink = 0.6 oz pure alcoho l) occasional Sex Assigned at Date Recorded Not on file Obstetrics History Last Filed Vital Signs Vital Sign Reading Time Taken Comments Blood Pressure 110/70 12/18/2018 10:35 AM CDT Pulse 80 12/18/2018 10:35 AM CDT Temperature 36.7 ??C (98.1 ??F) 04/26/2017 9:53 AM FAMILY SERVICES COORDINATOR Respiratory Rate 16 12/18/2018 10:35 AM CDT Oxygen Saturation 100% 04/26/2017 9:53 AM FAMILY SERVICES COORDINATOR Inhaled Oxygen Concentration - - Weight 103.9 kg (229 lb) 12/18/2018 10:35 AM CDT Height 175.3 cm (5' 9) 12/18/2018 10:35 AM CDT Body Mass Index 33.82 12/18/2018 10:35 AM CDT Plan of Treatment Health Maintenance Due Date Last Done Comments COVID-19 vaccine series (#1) 1975 Hepatitis C screening for age 0105/18/1995 18-79 BMI (ht and wt on same day) for 12/19/2019 12/18/2018, 04/12, age 18+ 10/25/2016, Additional history exists Depression screening for age 12+ 12/19/2019 12/18/2018, 01/2017, 09/05/2015 Pap test for age 21-65 02/11/2021 02/11/2018, 02/11/2018, 06/11/2013, Additional history exists Influenza for age 9-49 01/11/2022 01/31/2009, 02/24/2008, 10/21/1997, Additional history exists Tetanus booster 03/12/2023 03/12/2013, 07/04/2011 (Completed outside of [facility]), 07/25/2007, Additional history exists Tdap Completed 03/12/2013, 07/25/2007 Medical Devices Implanted Type Area 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 Operator Device Shelf Model / Identifier Expiration Serial / Lot Date Plate Cerv Ant 42.5mm Atlantisvision 976-142 - [id number] Spine Spine SOFAMOR DANEK [id number]# / Implanted: Qty: 1 on 07/23/2008 at [facility] Implan ts / Spacer Colton/Canclls 7mm A Lordotic Acf Fd [id number] - [id number] Spine Musculoskeletal 05/01/2011 [id number]# / Implanted: Qty: 1 on 07/23/2008 at [facility] Transplant [id number] / Explanted: at [facility] (Quantity not on file) Results Not on filefrom Last 3 Months Insurance Payer Benefit Plan / Subscriber ID Effective Dates Phone Addre ss Type Group BLUE CROSS BLUE CROSS OF [id number] 2018-Presen [address] [facility] [place] [address] WC WORKERS WC LIBERTY xx [id number] 2020-Prese [address] [place] [address] Advance Directives Latest Code Status on File Code Status Date Activated Date Inactivated Comments Full Code 07/23/2008 11:00 AM 07/25/2008 3:01 PM Full Code 07/23/2008 6:30 AM 07/23/2008 11:00 AM Care Teams Adjunct Professor Of English Relationship Specialty Start Date End Date Mitul Donato MD PCP - General 07/23/08
--- OUTSIDE RECORDS SUMMARY | 2022-03-08 12:49 | XMS_ITS | Encounter Summary ---
:1975 Author Organization [facility] Address [address] [place] [address] Care Team Providers Name Role Phone Unavailable Primary Care Provider Unavailable Reason for Visit Reason Comments Sore Throat Sore throat, post nasal drip , sinus pressure, right eye swollen, both ears hurts, bodyache and chi lls. Started about a week ago. Encounter Details Date Type Department Care Team Description 03/13/2018 Office Visit Express [facility] in [place], Pha ryngitis Acute (Primary Dx); [place], [place] P.A.-C. Infection Upper Respiratory [address] [place], [facility] [id number] [place], [place] [phone] (Wo rk) Social History Tobacco Use Types Packs/Day Years Used Date Smoking Tobacco: Former Smokeless Tobacco: Never Alcohol Use Standard Drinks/Week Comments No 0 (1 standard drink = 0.6 oz pure alcoho l) Sex Assigned at Date Recorded Not on file documented as of this encounter Last Filed Vital Signs Vital Sign Reading Time Taken Comments Blood Pressure 100/68 03/13/2018 5:08 PM CDT Pulse 74 03/13/2018 5:08 PM CDT Temperature 36.8 ??C (98.2 ??F) 03/13/2018 5:08 PM CDT Respiratory Rate - - Oxygen Saturation 98% 03/13/2018 5:08 PM CDT Inhaled Oxygen Concentration - - Weight - - Height - - Body Mass Index - - documented in this encounter Patient Instructions Patient InstructionsDiaz Jain, P.A.-C. - 03/13/2018 5:00 PM CDT Push fluids get plenty of rest. Tylenol or ibuprofen as needed for pain or fever. Gargles or lozenges as needed for comfort. Mucinex OTC as needed for congestion. Nasal saline flushes 3-4 times daily as needed for congestion. See primary care provider in follow-up in 5-7 days if not improving, sooner if problems, to ED or urgent care if worsening. Diaz Jain P.A.-C. documented in this encounter Progress Notes [place] Jain P.A.-C. - 03/13/2018 5:00 PM CDT Subjective: Winsome Angulo is a 42 y.o. female presents with sore throat and postnasal drip ongoing x1 week. She reports throat is mild to moderate, constant, nonradiating, worse with swallowing. No known exposuresto strep for mono. She is reporting some postnasal drip which may be the cause of it as well. She thinks she might have a sinus infection as she has had some facial pressure and pain neck currently treating this with any medication. Review of systems: Patient denies fever, chills, nausea, vomiting, diarrhea, rash. She denies cough. Past Medical History: Diagnosis Date ??? Allergy Initial ??? Fusion Of Spine Cervical Region Current Outpatient Prescriptions: ??? cyclobenzaprine (FLEXERIL) 10 mg tablet, Take 10 mg by mouth as needed., Disp: , Rfl: ??? methylphenidate HCl (CONCERTA) 36 mg CR tablet, Take 36 mg by mouth every morning., Disp: , Rfl: ??? phentermine (SUPRENZA) 30 mg capsule, Take 30 mg by mouth every morning., Disp: , Rfl: ??? prenat.vits,liset,ovf-fvia-cizkh tablet, Take 1 tablet by mouth daily., Disp: , Rfl: ??? traMADol (ULTRAM) 50 mg tablet, Take 50 mg by mouth as needed., Disp: , Rfl: Allergies Allergen Reactions ??? Celecoxib Edema ??? Lansoprazole Hives ??? Latex Edema and Rash ??? Omeprazole Hives ??? Sulfa (Sulfonamide Antibiotics) Headache, Itching, Myalgia and Rash Objective: BP 100/68 (BP Location: Right arm, Patient Position: Sitting, Cuff Size: Large) Pulse 74 Temp 36.8 ??C SpO2 98% ? No Vital signs are noted. Patient is afebrile. O2 sat 98% on room air. She is alert oriented. She is inno acute distress. She moves readily from chair to exam table. HEENT: Ears: Tympanic membranes and external canals are clear bilaterally. Nares: Mild clear rhinitis, no obvious congestion or order. Appearance is normal. Eyes: Pupils are equal round reactive, extraocular movements are intact, no redness or discharge. Throat: Posterior pharynx shows mild erythema without exudate. Uvula protrudes midline. No swelling.Oral cavity appears normal. No odor. Neck: Soft and supple, no tonsillar or cervical adenopathy. Full range of motion. Lungs: Clear to auscultation all acevedo. Cardiovascular: Regular rate and rhythm, no murmurs. Dermatologic: No scarlatina form rashes or other lesions are seen. Labs: Rapid strep test negative, culture pending. Assessment: Viral upper respiratory infection Acute pharyngitis Plan: Follow up with culture if positive. Push fluids get plenty of rest. Tylenol or ibuprofen as needed for pain or fever. Gargles or lozenges as needed for comfort. Mucinex OTC as needed for congestion. Nasal saline flushes 3-4 times daily as needed for congestion. See primary care provider in follow-up in 5-7 days if not improving, sooner if problems, to ED or urgent care if worsening. Diaz Jain P.A.-C. documented in this encounter Plan of Treatment Not on filedocumented as of this encounter Procedures Procedure Name Priority Date/Time Associated Diagnosis Comme nts RAPID STREP A Routine 03/13/2018 5:18 PM Pharyngitis Acute Res ults for this SCREEN - MANUAL CDT procedure ar e in the results section. BACTERIAL CULTURE, STAT 03/13/2018 5:15 PM Pharyngitis Acut e Results for this THROAT CDT procedure are i n the results section. documented in this encounter Results Rapid Strep A Screen - EC (03/13/2018 5:18 PM CDT) [facility] Method Time Signature Rapid Strep A Negative [facility] Screen - EC [facility] QC Pass/Fail Pass [facility] Lot # [id number] FOR[facility] NAMED [facility] Exp. Date 02/09/2019 [facility] Crossing Watchman RONALD [id number] [facility] ID [facility] Specimen (Source) Anatomical Collection Method Collection Time Re ceived Time Location / / Volume Laterality Swab (Throat) 03/13/2018 5:18 PM CDT Diaz Jain P.A.-C. LAB POCT ORDERABLES-MANUAL Performing Organization Address City/[facility]/ZIP Code Phon e Number [facility] [address] [place], [place] [address] [facility] Bacterial Culture, Throat (03/13/2018 5:15 PM CDT) [facility] Method Time Signature Throat No growth of 03/15/2018 [facility] Culture Streptococcus 1:51 PM CDT [facility] Anatomical Collection Method Collection Time Receive d Time (Source) Location / / Volume Laterality Swab (Throat) 03/13/2018 5:15 PM 03/13/20 18 CDT 10:33 PM CDT Comment: Specimen Source Site: Swab Diaz Jain P.A.-C. LAB MICROBIOLOGY - GENERAL O RDERABLES Performing Organization Address City/State/ZIP Code Phon e Number [facility] [address] [place] [address] LAB documented in this encounter Visit Diagnoses Diagnosis Pharyngitis Acute - Primary Infection Upper Respiratory documented in this encounter
--- OUTSIDE RECORDS SUMMARY | 2022-03-08 12:49 | XMS_ITS | Encounter Summary ---
:1975 Author Organization [facility] Address [address] [place] [address] Care Team Providers Name Role Phone Unavailable Primary Care Provider Unavailable Reason for Visit Reason Comments Nephrolithiasis Casting x 2 days Back Pain today Nausea x 3 days Pelvic Pain comes and goes Encounter Details Date Type Department Care Team Description 03/16/2021 Office Visit Urgent Care, [facility] Michelle Lopez Pai n Back (Primary Dx); [place], in [facility] TITI, C.N.P., [facility] D.N.P. [address] [place] [phone] Social History Tobacco Use Types Packs/Day Years Used Date Smoking Tobacco: Former Smokeless Tobacco: Never Alcohol Use Standard Drinks/Week Comments No 0 (1 standard drink = 0.6 oz pure alcoho l) Sex Assigned at Date Recorded Not on file documented as of this encounter Last Filed Vital Signs Vital Sign Reading Time Taken Comments Blood Pressure 116/82 03/16/2021 5:55 PM CDT Pulse 90 03/16/2021 5:55 PM CDT Temperature 36.5 ??C (97.7 ??F) 03/16/2021 5:55 PM CDT Respiratory Rate - - Oxygen Saturation 97% 03/16/2021 5:55 PM CDT Inhaled Oxygen Concentration - - Weight - - Height - - Body Mass Index - - documented in this encounter Patient Instructions Patient InstructionsMichelle Lopez APRN C.N.P., D.N.P. - 03/16/2021 6:15 PM CDT Urine is clear. No signs of blood or infection at this time. Will plan to set urine for culture. Use ice and heat to back as discussed. Flexeril as needed for back pain. If symptoms persists, follow up with primary care provider in the next 3-5 days for follow up. documented in this encounter Progress Notes Michelle Lopez APRN, C.N.P., DaisyN.P. - 03/16/2021 6:15 PM CDT Images from the original note were not included. SUBJECTIVE CHIEF COMPLAINT / REASON FOR VISIT Back Pain HISTORY OF PRESENT ILLNESS Winsome Angulo is a 45 y.o. female who presents to the urgent care for evaluation of possible kidney stones. Patient reports that she has had lower back pain that goes across her lower back with occasional pins and needles sensation to her lower abdomen x last 2 days. She has noticed slight increased frequency of urination but as also been drinking more fluids. Denies any fevers or chills. She has felt slightly nauseated x 3 days. She has a history of kidney stones in the past with stents and ablation. She reports straining her urine since onset of symptoms and seeing no stones. Denies any hematuria. Home treatments include flomax and zofran. REVIEW OF SYSTEMS Constitutional: Negative for fever. Gastrointestinal: Positive for nausea. Genitourinary: Positive for urgency and frequent urination. Musculoskeletal: Positive for back pain. Negative for muscle pain/stiffness. Neurological: Negative for weakness in arms or legs. All other systems reviewed and are negative. The patient's social history, medical history, and home medications were reviewed in the electronic medical record. ALLERGIES/CONTRAINDICATIONS Allergies Allergen Reactions ??? Celecoxib Edema and Rash ??? Lansoprazole Hives ??? Sulfa (Sulfonamide Antibiotics) Headache, Itching, Myalgia and Rash Other reaction(s): rash, photosensitivity, aches ??? Omeprazole Hives ??? Latex Edema and Rash Other reaction(s): swelling of lips, itchiness Swelling, lip itchiness OBJECTIVE VITAL SIGNS BP 116/82 Pulse 90 Temp 36.5 ??C SpO2 97% PHYSICAL EXAM Vitals reviewed. Constitutional General: She is not in acute distress. Appearance: Normal appearance. She is not ill-appearing. HENT Head: Normocephalic and atraumatic. Cardiovascular Rate and Rhythm: Normal rate. Pulses: Dorsalis pedis pulses are 2+ on the right side and 2+ on the left side. Posterior tibial pulses are 2+ on the right side and 2+ on the left side. Heart sounds: Normal heart sounds. Pulmonary Effort: Pulmonary effort is normal. Breath sounds: Normal breath sounds. Abdominal General: Bowel sounds are normal. There is no distension. Palpations: Abdomen is soft. Tenderness: There is no abdominal tenderness. There is no right CVA tenderness, left CVA tenderness, guarding or rebound. Hernia: There is no hernia in the left inguinal area or right inguinal area. Musculoskeletal Back: Comments: No midline TTP. No bony step offs. Normal ROM. Normal and symmetric strength and sensation bilateral lower extremities. Negative SLR bilaterally. Lymphadenopathy Lower Body: No right inguinal adenopathy. No left inguinal adenopathy. Skin General: Skin is warm and dry. Findings: No rash. Neurological Mental Status: She is alert and oriented to person, place, and time. Psychiatric Behavior: Behavior is cooperative. DIAGNOSTICS Recent Results (from the past 24 hour(s)) Urinalysis with Microscopic if Indicated Collection Time: 03/16/21 6:23 PM Result Value Source Urine, Urine, Clean Catch Clarity Clear Color Yellow Blood Negative Nitrite Negative Leukocyte Esterase Negative Protein Negative Glucose Negative Ketones, QI(U) Negative Bilirubin Negative pH 5.5 Specific [place] 1.020 Urobilinogen 0.2 Test, POCT, Urine (lab) Collection Time: 03/16/21 6:23 PM Result Value Test, POCT, U Negative ASSESSMENT / PLAN #1 Pain Back - Urinalysis with Microscopic if Indicated - Test, POCT, Urine (lab) - cyclobenzaprine (FLEXERIL) 10 mg tablet; Take 1 tablet (10 mg total) by mouth 3 (three) times a day as needed for muscle spasms for up to 10 days., Starting Kami 03/16/2021, Until 03/26/2021 at 2359, Normal #2 Frequency Urinary Other orders - Bacterial Culture, Aerobic + Susc, Urine; Future; Expected date: 03/16/2021 - ondansetron ODT (ZOFRAN-ODT) 4 mg disintegrating tablet; Take 1 tablet (4 mg total) by mouth every8 (eight) hours as needed for nausea or vomiting for up to 3 days., Starting Kami 03/16/2021, Until 03/19/2021 at 2359, Normal Urinalysis was negative for any acute findings. No CVAT bilaterally. Abdomen exam was benign. Pain appears to be more lower back. Negative SLRs. Suspect muscular etiology for symptoms. Declined a covidtest at this time. We discussed watchful monitoring of symptoms. Will set urine for culture and treat if positive. May use zofran up to 3 times daily as needed for nausea. Use Flexeril as prescribed for back pain. She may use icy hot patch and the back pain cream she has at home. If symptoms persists in 3 days without improvement, we discussed follow up with primary care provider. Follow up sooner inurge care or emergency department for any acute worsening of symptoms.Patient verbalized understanding and agrees with this plan. All questions and concerns were addressed. No further needs at this time. Discharged in stable condition from the clinic. Electronically signed by: Michelle Lopez APRN, C.N.P., D.N.P. 03/16/21 7:07 PM CDT documented in this encounter Plan of Treatment Not on filedocumented as of this encounter Procedures Procedure Name Priority Date/Time Associated Comments Diagnosis URINALYSIS WITH STAT 03/16/2021 6:23 PM Pain Back Result s for this MICROSCOPIC IF CDT procedure are in INDICATED, U the results section. TEST, POCT, Routine 03/16/2021 6:23 PM Pain Back Results for this U (LAB) CDT procedure are i n the results section. documented in this encounter Results Test, POCT, Urine (lab) (03/16/2021 6:23 PM CDT) P athologist Signature Negative 03/16/2021 NPR[facility] Test, POCT, U 7:28 PM CDT Specimen Anatomical Collection Method Collection Time Receive d Time (Source) Location / / Volume Laterality Urine 03/16/2021 6:23 PM 7:19 CDT PM CDT Michelle Lopez APRN, C.N.P., Michelle LAB POCT ORDERABLES - DEVICE Performing Organization Address City/State/ZIP Code Phon e Number [facility] [address] [place], [place] [address] [place] [address] [place] [address] [place] [address] [address] [facility] Urinalysis with Microscopic if Indicated (03/16/2021 6:23 PM CDT) P athologist Signature Source Urine, 03/16/2021 NPRG Urine, Clean 6:36 PM CDT Catch Clarity Clear Clear 03/16/2021 NPRG 7:04 PM CDT Color Yellow 03/16/2021 NPRG 7:04 PM CDT Comment: ----REFERENCE VALUE---- Colorless Yellow Margaret Blood Negative Negative 03/16/2021 7:04 PM CDT NPRG Nitrite Negative Negative 03/16/2021 7:04 PM CDT NPRG Leukocyte Esterase Negative Negative 03/16/2021 7:04 PM CD T NPRG Protein Negative mg/dL 03/16/2021 7:04 PM CDT NPRG Comment: ----REFERENCE VALUE---- Negative Trace Glucose Negative Negative mg/dL 03/16/2021 7:04 PM CDT BLASTING [employer] MINER RG Ketones, QI(U) Negative Negative mg/dL 03/16/2021 7:04 PM C DT NPRG Bilirubin Negative Negative 03/16/2021 7:04 PM CDT NPRG pH 5.5 5.0 - 8.0 03/16/2021 7:04 PM CDT NPRG Specific [place] 1.020 1.001 - 1.035 03/16/2021 7:04 PM CDT NPRG Urobilinogen 0.2 0.2 - 1.0 mg/dL 03/16/2021 7:04 PM CD T NPRG Specimen Anatomical Collection Method Collection Time Receive d Time (Source) Location / / Volume Laterality Urine (Urine, 03/16/2021 6:23 PM 03/16/20 6:36 Clean Catch) CDT PM CDT Michelle Lopez APRN, C.N.P., D.N.P. LAB URINE ORDERABLE S Performing Organization Address City/State/ZIP Code Phon e Number [facility] [address] [place], [place] [address] [address] [place] [address] documented in this encounter Visit Diagnoses Diagnosis Pain Back - Primary Frequency Urinary documented in this encounter
--- OUTSIDE RECORDS SUMMARY | 2022-03-08 12:49 | XMS_ITS | Encounter Summary ---
:1975 Author Organization [facility] Address [address] [place] [address] Care Team Providers Name Role Phone Unavailable Primary Care Provider Unavailable Encounter Details Date Type Department Care Team Description 03/18/2021 [facility] [place], in [facility] [place] [address] [place] [phone] (Wo rk) Social History Tobacco Use Types Packs/Day Years Used Date Smoking Tobacco: Former Smokeless Tobacco: Never Alcohol Use Standard Drinks/Week Comments No 0 (1 standard drink = 0.6 oz pure alcoho l) Sex Assigned at Date Recorded Not on file documented as of this encounter Plan of Treatment Not on filedocumented as of this encounter Visit Diagnoses Not on filedocumented in this encounter
--- OUTSIDE RECORDS SUMMARY | 2022-03-08 12:49 | XMS_ITS | Encounter Summary ---
:1975 Author Organization [facility] Address [address] 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 documented as of this encounter Plan of Treatment Not on filedocumented as of this encounter Visit Diagnoses Not on filedocumented in this encounter Care Teams Catering Manager Relationship Specialty Start Date End Date Rohit Donato MD PCP - General Family Medicine 05/30/20 [facility] [address] [place] [address] documented as of this encounter
--- OUTSIDE RECORDS SUMMARY | 2022-03-08 12:50 | XMS_ITS | Clinical Summary ---
:1975 Author Organization [facility] Address [address] [address] Phone Care Team Providers Name Role Phone Elsewhere, Pcp Primary Care Provider Unavailable Allergies Active Allergy Reactions Severity Noted Date Comments Celecoxib 01/15/2015 Latex 01/15/2015 Sulfa Drugs 01/15/2015 Medications Medication Sig Dispensed Refills Start Date End Date Status VIT W/ FE Take by mouth. 0 Active BISG-FA OR loratadine Take 10 mg by mouth 0 Active (CLARITIN) 10 MG one time a day. Take capsule on an empty stomach. Olopatadine HCl Apply to eye. 0 Active (PAZEO) 0.7 % Solution traMADol (ULTRAM) Take 50 mg by mouth 0 Active 50 MG tablet every six hours as needed for Pain. bacitracin Apply topically two 14 g 0 01/15/2015 Active (BACIGUENT) 500 times a day. UNIT/GM ointment oxyCODONE-acetamino Take 1 - 2 pills orally ever y 4 - 6 hours as needed for pain. 20 Tab 0 01/15/2015 Active phen (PERCOCET) Limit acetaminophen to 4000 mg per day from all source s. 5-325 MG oral tablet Social History Tobacco Use Types Packs/Day Years Used Date Smoking Tobacco: Former Alcohol Use Standard Drinks/Week Comments No 0 (1 standard drink = 0.6 oz pure alcoho l) Sex Assigned at Date Recorded Not on file Obstetrics History Last Filed Vital Signs Vital Sign Reading Time Taken Comments Blood Pressure 96/69 01/15/2015 7:09 PM CDT Pulse 92 01/15/2015 7:09 PM CDT Temperature 36.7 ??C (98.1 ??F) 01/15/2015 3:42 PM CDT Respiratory Rate 18 01/15/2015 7:09 PM CDT Oxygen Saturation 98% 01/15/2015 7:09 PM CDT Inhaled Oxygen Concentration - - Weight 86.2 kg (190 lb) 01/15/2015 3:42 PM CDT Height 177.8 cm (5' 10) 01/15/2015 3:42 PM CDT Body Mass Index 27.26 01/15/2015 3:42 PM CDT Plan of Treatment Not on file Insurance Payer Benefit Plan / Subscriber ID Effective Phone Address T ype Group Dates GENERIC GENERIC [id number] 2018-Pre Commerc ial [employer]CIAL [employer]CIAL OON sent [address] [place] [address] 

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
--- OUTSIDE RECORDS SUMMARY | 2022-03-08 12:50 | XMS_ITS | Encounter Summary ---
:1975 Author Organization [place] Address [facility] [place] [address] Care Team Providers Name Role Phone Rohit [...] [address] [place] [address] Phone: Referral ID Status Reason Start Date Expiration Date Visits Requ ested Visits Authorized [id number] 1 1 Encounter Details Date Type Department Care Team Description 05/30/2020 [facility] Ramez Hutchins Obstrmii on of left Encounter Lindsay Fraser MD ureteropelvic PreOP/Phase II [facility] junction (UPJ) due to [address] stone (Primary Dx) [address] [place] [address] [address] [place] [phone] Social History Tobacco Use Types Packs/Day Years Used Date Smoking Tobacco: Never Smokeless Tobacco: Never Alcohol Use Standard Drinks/Week Comments Yes 0 (1 standard drink = 0.6 oz pure alcoho l) Sex Assigned at Date Recorded Not on file COVID-19 Exposure Response Date Recorded In the last month, have you been in contact with No / Unsure 05/30/2020 8:40 AM SENIOR JAVA ARCHITECT someone who was confirmed or suspected to have Coronavirus / COVID-19? documented as of this encounter Last Filed Vital Signs Vital Sign Reading Time Taken Comments Blood Pressure 118/76 05/30/2020 2:00 PM SENIOR JAVA ARCHITECT Pulse 87 05/30/2020 2:00 PM SENIOR JAVA ARCHITECT Temperature 37.1 ??C (98.8 ??F) 05/30/2020 2:00 PM SENIOR JAVA ARCHITECT Respiratory Rate 16 05/30/2020 2:00 PM SENIOR JAVA ARCHITECT Oxygen Saturation 97% 05/30/2020 2:00 PM SENIOR JAVA ARCHITECT Inhaled Oxygen Concentration - - Weight 102.5 kg (226 lb) 05/30/2020 9:00 AM SENIOR JAVA ARCHITECT Height 175.3 cm (5' 9) 05/30/2020 9:00 AM SENIOR JAVA ARCHITECT Body Mass Index 33.37 05/30/2020 9:00 AM SENIOR JAVA ARCHITECT documented in this encounter Discharge Instructions Discharge [...] or school ?? Do Not go to rastafari, child adolescent psychiatrist centers, shopping, or other public places. ?? [...] at home, please visit the CDCwebsite at https://www.cdc.gov/coronavirus/2019-ncov/about/tuegs-blka-udoo.html For more options for care at [facility], please visit our website at [email or web address] DISCHARGE INSTRUCTIONS FOLLOWING EXTRACORPOREAL SHOCK LITHOTRIPSY [...] about your procedure, call Dr. Hutchins at [phone] OR JAVA ARCHITECT documented in this encounter Medications at Time [...] the patient. There are no significant changes OR JAVA ARCHITECT Source Note - Merlyn, Provider - 05/25/2020 1:44 PM SENIOR JAVA ARCHITECT documented in this encounter Miscellaneous Notes Op [...] normal position and configuration. Open- ended ureteralcatheter, 6-Kazakh, was advanced under fluoroscopy up to just [...] HUTCHINS MD MT: BHARATHI Name: WINSOME MULLEN MRN: [id number] Account: [id number] : 1975 Procedure Date: 05/30/2020 Document: [id number] cc: Ramez Hutchins MD OR JAVA ARCHITECT Op Note - Ramez Hutchins MD - 05/30/2020 11:41 AM CST [facility] Urology Brief Operative Note Pre-operative diagnosis: Left UPJ stone Post-operative diagnosis: Same Procedure: Procedure(s): CYSTOSCOPY, LEFT EXTRACORPOREAL SHOCK WAVE (ESWL), LEFT URETERAL CATHETER PLACEMENT, stone push-back Surgeon: Ramez Hutchins MD, MD Credit Analysis Manager(s): none Anesthesia: LMA Estimated blood loss: None Total IV fluids: (See anesthesia record) Blood transfusion: No transfusion was given during surgery Total urine output: (See anesthesia record) Not measured Drains: None Specimens: None Implants: None Findings: Stone manipulated back into the kidney and treated there. Complications: None Condition: Stable Comments: See dictated operative report for full details. Ramez Hutchins MD, MD OR JAVA ARCHITECT documented in this encounter Plan of Treatment Not on filedocumented as of this encounter Procedures Procedure Name Priority Date/Time Associated Diagnosis Comme nts LITHOTRIPSY, 05/30/2020 11:02 AM Kidney stone EXTRACORPOREAL SHOCK WAVE SENIOR JAVA ARCHITECT (ESWL), WITH CYSTOSCOPY AND URETERAL STENT INSERTION Case Notes LITHO CHARGE ENTERED Special Needs Scheduled [facility] lj Under 297lbs.[facility] PT STATES COVID POSITIVE 03/18/21 CALLING OFF ICE TO GET RESULTS SENT OVER 03/26/21 AB Unable to confirm laterality-left mess age on preop call HCG QUALITATIVE URINE STAT 05/30/2020 9:45 AM SENIOR JAVA ARCHITECT LAB RESULT - HIM SCAN 03/18/2020 12:00 AM SENIOR JAVA ARCHITECT documented in this encounter Results HCG qualitative urine (05/30/2020 9:45 AM SENIOR JAVA ARCHITECT) P athologist Signature HCG Qual Urine Negative NEG^Negati 05/30/2020 [facility] 9:[address] [facility] Comment: This test is for screening purposes. ??R esults should be interpreted along with the clinical picture. ??Confirmation te sting is available if warranted by ordering [id number], HCG Quantitative Pregna ncy. Specimen Anatomical Collection Method Collection Time Receive d Time (Source) Location / / Volume Laterality Urine specimen URINE SPECIMEN 05/30/2020 9:45 AM 05/30 9:53 (specimen) OBTAINED BY CLEAN SENIOR JAVA ARCHITECT AM SENIOR JAVA ARCHITECT CATCH PROCEDURE / Unknown Billy Newton MD LAB - URINE ORDERABLES Performing Organization Address City/State/ZIP Code Phon e Number M [facility] [address] [address] [facility] [address] [address], [place] [phone] LAB RESULT - HIM SCAN (03/18/2020 12:00 AM SENIOR JAVA ARCHITECT) Specimen (Source) Anatomical Location Collection Method / Collectio n Time Received Time / Laterality Volume 03/18/2020 Narrative This result has an attachment that is no t available. Provider Outside NON-BEAKER LAB TESTING documented in this encounter Visit Diagnoses Diagnosis Obstruction of left ureteropelvic juncti on (UPJ) due to stone - Primary documented in this encounter Administered Medications Inactive Administered Medications - up to 3 most recent administrations Medication Order MAR Action Action Date Dose Rate Site fentaNYL (PF) (SUBLIMAZE) Given 05/30/2020 12:48 PM SENIOR JAVA ARCHITECT 50 mcg injection 25-50 mcg 25-50 mcg, Intravenous, EVERY 2 MIN PRN, other, acute pain, Starting on 05/30/20 at 1224, MAX cumulative dose = 250 mcg. Use fentaNYL (SUBLIMAZE) initially, as a short acting agent for acute pain control. If insufficient, or a longer acting agent is needed, begin morphine or HYDROmorphone (DILAUDID) if ordered. For ordered IV doses 1-100 mcg give IV Push undiluted over a minimum of 3-5 minutes., PACU HYDROmorphone (PF) (DILAUDID) injection Given 05/30/2020 1:05 PM SENIOR JAVA ARCHITECT 0.5 mg 0.3-0.5 mg 0.3-0.5 mg, Intravenous, [...] injection 4 mg Given 05/30/2020 12:53 PM SENIOR JAVA ARCHITECT 4 mg 4 mg, Intravenous, EVERY 30 [...] tablet 5 mg Given 05/30/2020 1:15 PM SENIOR JAVA ARCHITECT 5 mg 5 mg, Oral, ONCE, On Sat05/30/20 at 1230, For 1 dose, May administer ONCE as needed for pain control or improvement in physical function.??Notify provider to assess for uncontrolled pain or?? analgesic side effects., Post-procedure scopolamine (TRANSDERM) Patch/Med Applied 05/30/2020 9:39 AM 1 patch Behind Left Ear 72 hr patch 1 patch SENIOR JAVA ARCHITECT 1 patch, Transdermal, ONCE, Administer over 24 [...] Remove at 16:00 on POD 1., Post-procedure documented in this encounter Active and Recently Administered Medications Times are shown in SENIOR JAVA ARCHITECT. Scheduled Medication Order 05/28/2020 05/29/2020 05/30/2020 ceFAZolin (ANCEF) intermittent infusion 2 g in 100 mL dextrose PRE-MIX (COMPLETED) 1120 (Given - Provid er: Karine Maher APRN DYE MIXER) Routine, 2 g, Intravenous, PRE-OP/PRE-WV OCEDURE, Starting Sat05/30/20 at 0905, For 1 [...] patch 0939 (Patch/Med Applied - Provider: Neftali Mccann, RN)1408 (Due: Patch/Med Removed - Provider: Orders [...] dose information., Post-procedure scopolamine (TRANSDERM-SCOP) patch REMOVAL Tu05/31/20 at 1600, For 1 dose, Remove at 16:00 on POD 1., Post -procedure PRN Medication Order 05/28/2020 05/29/2020 05/30/2020 fentaNYL (PF) (SUBLIMAZE) injection 25-50 mcg (CANCELED) 1248 (Given - Provider: Elyse Coffman RN) 25-50 mcg, Intravenous, EVERY 2 MIN PRN, other, acute pain, Starting Sat05/30/20 at 1224, MAX cumulative dose = [...] Respiratory Rate is greater than 10, Starting Sat05/30/20 at 1224, Max cumulative dose = [...] MD - Comment: CYSTOSCOPY) PRN, Intra-procedure, Starting 05/30/20 at 1132, Until Sat at 1334 documented in this encounter Care Teams Piece Dyeing Machine Tender Relationship Specialty Start Date End Date Rohit Donato MD PCP - General Family Medicine 05/30/20 [facility] [address] [place] [address] documented as of this encounter
--- OUTSIDE RECORDS SUMMARY | 2022-03-08 12:50 | XMS_ITS ---
:1975 Author Care Team Providers Name Role Phone AVERY MAHAJAN MD Primary Care Provider [phone] Allergies Code Code System Name Reaction Severity Status Onset 21580619 RxNorm Celebrex ? ? Active ? 50752 RxNorm Lansoprazole ? ? Active ? 8586323 RxNorm Latex ? ? Active ? 051878 RxNorm Prilosec ? ? Active ? Sulfa (Sulfonamide ? ? Active ? Antibiotics) Medications Name Status Start Date Stop Date ? ? Adderall Active ? Not available azithromycin 250 mg tablet Completed ? 06/30 cephalexin 500 mg capsule Completed ? 2020 Compazine Active ? Not available Cosentyx Active ? Not available Cosentyx Pen 300 mg/2 Pens (150 mg/mL) Completed ? 06/30/2020 subcutaneous cyclobenzaprine Completed ? 04/26/2020 cyclobenzaprine 10 mg tablet Active ? Not available TK 1 T PO TID PRF MUSCLE SPASM dextroamphetamine-amphetamine 20 mg tablet Completed ? 06/30/2020 TAKE 1 TABLET BY MOUTH DAILY doxycycline monohydrate 100 mg tablet Completed ? 06/30/2020 TK 1 T PO BID flaxseed Active ? Not available Glucosamine Active ? Not available magnesium Active ? Not available methylprednisolone Completed ? 04/26/2020 metronidazole 0.75 % lotion Completed ? 06/13 CATRINA EXT AA BID montelukast Completed ? 06/30/2020 montelukast 10 mg tablet Active ? Not florence ilable TAKE 1 TABLET BY MOUTH AT BEDTIME multivitamin Active ? Not available ondansetron 4 mg disintegrating tablet Active Not available DISSOLVE 1 TABLET ON THE TONGUE EVERY 6 HOURS NEEDED oxycodone 5 mg tablet Completed ? 06/30/2020 oxycodone-acetaminophen 5 mg-325 mg tablet Active 06/30 Not available TAKE 1 TO 2 TABLETS BY MOUTH EVERY 4 HOURS NEEDED pantoprazole 40 mg tablet,delayed release Active ? Not available TAKE 1 TABLET BY MOUTH DAILY Pazeo 0.7 % eye drops Completed ? 06/30/2020 INSTILL 1 GTT IN OU BID phentermine Completed ? 04/26/2020 prochlorperazine maleate 5 mg tablet Completed ? 06/30/2020 TAKE 1 TABLET BY MOUTH EVERY 4 TO 6 HOURS NEEDED Protonix Completed ? 06/30/2020 tamsulosin 0.4 mg capsule Active ? Not av ailable TAKE 1 CAPSULE BY MOUTH DAILY tramadol 50 mg tablet Active 06/30/2020 Not availa ble TAKE 1 TABLET BY MOUTH UP TO THREE TIMES DAILY NEEDED Ventolin HFA 90 mcg/actuation aerosol inhaler Completed ? 06/30/2020 INHALE 1- 2 PUFFS PO Q 4 TO 6 H PRF COUGH / SOB Vitamin D Active ? Not available Zyrtec Active ? Not available Problems None recorded. Procedures Date Name Performed by ? 05/30/2020 Cystoscopy Information not avai lable Notes: Cystoscopy, left ur eteral catheter with stone pushback, left extracorporeal shock wave lithotripsy ? Procedure on Spine Information not avai lable Notes: C5-C7 anterior fusion ? Delivery Information not avai lable Notes: 03/11/2010, 04/20/2013 ? Colonoscopy Information not avai lable Notes: 07/2019 ? Tonsillectomy Information not avai lable ? Extraction of [place] Tooth Information n ot available 05/19/2020 XR, Kidney + Ureter + Bladder Informatio n not available 06/23/2020 XR, Kidney + Ureter + Bladder [address] [address] (Work Place) Results Lab Results Date Name Specimen Result Interpretation Description Value Range Status Address ? 06/30/2020 Stone ? Source comment ? Final [facility]: Analysis [address], [place] ? ? ? Color brown ? Final [facility]: [address], [place] ? ? ? Size 2x2 mm ? Final [facility]: [address], [place] ? ? ? Weight 41 mg ? Final [facility]: [address], [place] ? ? ? Composition comment ? Final [facility]: [address], [place] ? ? ? Calcium Oxalate 70 % ? Final [facility]: Monohydrate [address] [facility] [address], [place] ? ? ? Calcium Oxalate 10 % ? Final [facility]: Dihydrate [address] [facility] [address], [place] ? ? ? Hydroxyapatite 20 % ? Final [facility]: [address] [facility] [address], [place] ? ? ? Carbonate Apatite bulldozer mechanic ? Cance lled [facility]: [address] [facility] [address], [place] ? ? ? Cahpo4 (Brushite) bulldozer mechanic ? Cance lled [facility]: [address] [facility] [address], [place] ? ? ? Calcium Phosphate bulldozer mechanic ? Cance lled [facility]: [address] [facility] [address], [place] ? ? ? Calcium Carbonate bulldozer mechanic ? Cance lled [facility]: [address] [facility] [address], [place] ? ? ? mg Nh4 PO4 bulldozer mechanic ? Cancelled [facility]: (Struvite) [address] [facility] [address], [place] ? ? ? Mghpo4 bulldozer mechanic ? Cancelled [facility]: (Newberyite) [address] [facility] [address], [place] ? ? ? Uric Acid bulldozer mechanic ? Cancelled [facility]: [address] [facility] [address], [place] ? ? ? Uric Acid bulldozer mechanic ? Cancelled [facility]: Dihydrate [address] [facility] [address], [place] ? ? ? Ammonium Acid bulldozer mechanic ? Cancelled [facility]: Urate [address] [facility] [address], [place] ? ? ? Sodium Acid Urate bulldozer mechanic ? Cance lled [facility]: [address] [facility] [address], [place] ? ? ? 2,8 bulldozer mechanic ? Cancelled [facility] : Dihydroxyadenine [address] [facility] [address], [place] ? ? ? Xanthine bulldozer mechanic ? Cancelled [facility]: [address] [facility] [address], [place] ? ? ? Cystine bulldozer mechanic ? Cancelled [facility]: [address] [facility] [address], [place] ? ? ? Cholesterol bulldozer mechanic ? Cancelled [facility]: [address] [facility] [address], [place] ? ? ? Calcium bulldozer mechanic ? Cancelled [facility]: Bilirubinate [address], [place] ? ? ? Bilirubin bulldozer mechanic ? Cancelled [facility]: [address], [place] ? ? ? Calcium Palmitate bulldozer mechanic ? Cance lled [facility]: [address], [place] ? ? ? Calcium Stearate bulldozer mechanic ? Cancel led [facility]: [address], [place] ? ? ? Triamterene bulldozer mechanic ? Cancelled [facility]: [address], [place] ? ? ? Drug or bulldozer mechanic ? Cancelled [facility]: Metabolite [address], [place] ? ? ? Dried Blood bulldozer mechanic ? Cancelled [facility]: [address], [place] ? ? ? Cellular Material bulldozer mechanic ? Cance lled [facility]: [address], [place] ? ? ? Other bulldozer mechanic ? Cancelled [facility] : Component(s) [address], [place] ? ? ? Comment bulldozer mechanic ? Cancelled [facility]: [address], [place] ? ? ? Comment bulldozer mechanic ? Cancelled [facility]: [address], [place] ? ? ? Photo comment ? Final [facility]: [address], [place] ? ? ? Comment: comment ? Final [facility]: [address], [place] ? ? ? Please Note: comment ? Final [facility]: [address], [place] ? ? ? Disclaimer: comment ? Final [facility]: [address], [place] ? ? ? Pdf . ? Final [facility]: [address], [place] 06/30/2020 Stone ? Source comment ? Final [place] [facility]: [address] [facility], [place] ? ? ? Color brown ? Final [place] [facility]: [address] [facility], [place] ? ? ? Size 2x2 mm ? Final [place] [facility] [address], [place] ? ? ? Weight 41 mg ? Final [place] [facility]: [address], [place] ? ? ? Composition comment ? Final [place] [facility]: [address], [place] ? ? ? Calcium Oxalate 70 % ? Final [facility] Monohydrate [facility] - [facility]: [address], [place] ? ? ? Calcium Oxalate 10 % ? Final [facility] Dihydrate [facility] - [facility]: [address], [place] ? ? ? Hydroxyapatite 20 % ? Final [place] [facility]: [address], [place] ? ? ? Photo comment ? Final [facility] - [facility]: [address], [place] ? ? ? Comment: comment ? Final [facility] - [facility]: [address], [place] ? ? ? Please Note: comment ? Final [place] [facility]: [address], [place] ? ? ? Disclaimer: comment ? Final [place] [facility] - [facility]: [address], [place] ? ? ? Pdf . ? Final [facility]: [address], [place] 06/30/2020 Urinalysis, ? No observation ? ? ? Dipstick recorded. ? Urinalysis, ? pH-Status 7.0 ? ? [facility]: [address], [place] ? Urinalysis, ? No observation ? ? ? [facility]: [address], [place] ? Urinalysis, ? pH-Status 5.5 ? ? [facility]: [address], [place] ? ? ? Blood-Status Moderate ? ? [facility]: [address], [place] Past Encounters None recorded. Social History Tobacco Smoking Status Former Smoker Notes: Quit 200 5 Vaccine List None recorded. Plan of Care Reminders Provider Appointments None recorded. ? ? Lab None recorded. ? ? Referral None recorded. ? ? Procedures None recorded. ? ? Surgeries None recorded. ? ? Imaging None recorded. ? ? Vitals 06/30/2020 10:20AM ESTABLISHED 10 Height Weight BMI 5 ft 9 in 230 lbs 34 kg/m2 04/26/2020 11:00AM NEW PATIENT 20 Height Weight BMI 5 ft 9 in 233 lbs 34.4 kg/m2
--- OUTSIDE RECORDS SUMMARY | 2022-03-08 12:50 | XMS_ITS | Encounter Summary ---
:1975 Author Organization [place] Address [address] [place] [address] Care Team Providers Name Role Phone Unavailable Primary Care Provider Unavailable Encounter Details Date Type Department Care Team Description 05/23/2020 Orders Only [facility] Andi Keys Encounter for Lindsay Turner OR MD Evelio screening for other [address] [facility] viral diseases [place] [address] [facility] (Primary Dx) [phone] [address] [place] [phone] (Wo rk) Social History Tobacco Use Types Packs/Day Years Used Date Smoking Tobacco: Never Assessed Sex Assigned at Date Recorded Not on file documented as of this encounter Plan of Treatment Not on filedocumented as of this encounter Visit Diagnoses Diagnosis Encounter for screening for other viral diseases - Primary documented in this encounter
--- OUTSIDE RECORDS SUMMARY | 2022-03-08 12:51 | XMS_ITS ---
:1975 Author Care Team Providers Name Role Phone AVERY MAHAJAN MD Primary Care Provider [phone] Allergies Code Code System Name Reaction Severity Status Onset 21580619 RxNorm Celebrex ? ? Active ? 85834 RxNorm Lansoprazole ? ? Active ? 4726080 RxNorm Latex ? ? Active ? 732466 RxNorm Prilosec ? ? Active ? Sulfa [...] Information not avai lable ? Extraction of [place] [facility] Information n ot available 05/19/2020 XR, Kidney + Ureter + Bladder Informatio n not available 06/23/2020 XR, Kidney + Ureter + Bladder [address] [address] (Work Place) Results Lab Results Date Name Specimen Result Interpretation Description Value Range Status Address ? 06/30/2020 Stone ? Source comment ? Final [facility]: Analysis [address], [place] ? ? ? Color brown ? Final [facility]: [address], [place] ? ? ? Size 2x2 mm ? Final [facility]: [address], [place] ? ? ? Weight 41 mg ? Final [facility]: [address], [place] ? ? ? Composition comment ? Final [facility]: [address], [place] ? ? ? Calcium Oxalate 70 % ? Final [facility]: Monohydrate [address] [facility] [address], [place] ? ? ? Calcium Oxalate 10 % ? Final [facility]: Dihydrate [address] [facility] [address], [place] ? ? ? Hydroxyapatite 20 % ? Final [facility]: [address] [facility] [address], [place] ? ? ? Carbonate Apatite traveling auditor ? Cance lled [facility]: [address] [facility] [address], [place] ? ? ? Cahpo4 (Brushite) traveling auditor ? Cance lled [facility]: [address] [facility] [address], [place] ? ? ? Calcium Phosphate traveling auditor ? Cance lled [facility]: [address] [facility] [address], [place] ? ? ? Calcium Carbonate traveling auditor ? Cance lled [facility]: [address] [facility] [address], [place] ? ? ? mg Nh4 PO4 traveling auditor ? Cancelled [facility]: (Struvite) [address] [facility] [address], [place] ? ? ? Mghpo4 traveling auditor ? Cancelled [facility]: (Newberyite) [address] [facility] [address], [place] ? ? ? Uric Acid traveling auditor ? Cancelled [facility]: [address] [facility] [address], [place] ? ? ? Uric Acid traveling auditor ? Cancelled [facility]: Dihydrate [address] [facility] [address], [place] ? ? ? Ammonium Acid traveling auditor ? Cancelled [facility]: Urate [address] [facility] [address], [place] ? ? ? Sodium Acid Urate traveling auditor ? Cance lled [facility]: [address] [facility] [address], [place] ? ? ? 2,8 traveling auditor ? Cancelled [facility] : Dihydroxyadenine [address] [facility] [address], [place] ? ? ? Xanthine traveling auditor ? Cancelled [facility]: [address] [facility] [address], [place] ? ? ? Cystine traveling auditor ? Cancelled [facility]: [address] [facility] [address], [place] ? ? ? Cholesterol traveling auditor ? Cancelled [facility]: [address] [facility] [address], [place] ? ? ? Calcium traveling auditor ? Cancelled [facility]: Bilirubinate [address], [place] ? ? ? Bilirubin traveling auditor ? Cancelled [facility]: [address], [place] ? ? ? Calcium Palmitate traveling auditor ? Cance lled [facility]: [address], [place] ? ? ? Calcium Stearate traveling auditor ? Cancel led [facility]: [address], [place] ? ? ? Triamterene traveling auditor ? Cancelled [facility]: [address], [place] ? ? ? Drug or traveling auditor ? Cancelled [facility]: Metabolite [address], [place] ? ? ? Dried Blood traveling auditor ? Cancelled [facility]: [address], [place] ? ? ? Cellular Material traveling auditor ? Cance lled [facility]: [address], [place] ? ? ? Other traveling auditor ? Cancelled [facility] : Component(s) [address], [place] ? ? ? Comment traveling auditor ? Cancelled [facility]: [address], [place] ? ? ? Comment traveling auditor ? Cancelled [facility]: [address], [place] ? ? ? Photo comment ? Final [facility]: [address], [place] ? ? ? Comment: comment ? Final [facility]: [address], [place] ? ? ? Please Note: comment ? Final [facility]: [address], [place] ? ? ? Disclaimer: comment ? Final [facility]: [address], [place] ? ? ? Pdf . ? Final [facility]: [address], [place] 06/30/2020 Stone ? Source comment ? Final [place] [facility]: [address] [facility], [place] ? ? ? Color brown ? Final [place] [facility]: [address] [facility], [place] ? ? ? Size 2x2 mm ? Final [place] [facility] [address], [place] ? ? ? Weight 41 mg ? Final [place] [facility]: [address], [place] ? ? ? Composition comment ? Final [place] [facility]: [address] [place] ? ? ? Calcium Oxalate 70 % ? Final [facility]: [address], [place] ? ? ? Calcium Oxalate 10 % ? Final [facility] Di[facility] - [facility]: [address], [place] ? ? ? Hydroxyapatite 20 % ? Final [place] [facility]: [address], [place] ? ? ? Photo comment ? Final [facility]: [address], [place] ? ? ? Comment: comment ? Final [facility]: [address], [place] ? ? ? Please Note: comment ? Final [place] [facility]: [address], [place] ? ? ? Disclaimer: comment ? Final [place] [facility]: [address], [place] ? ? ? Pdf . ? Final [facility]: [address], [place] 06/30/2020 Urinalysis, ? No observation ? ? ? Dipstick recorded. ? Urinalysis, ? pH-Status 7.0 ? ? [facility]: [address], [place] ? Urinalysis, ? No observation ? ? ? [facility]: [address], [place] ? Urinalysis, ? pH-Status 5.5 ? ? [facility]: [address], [place] ? ? ? Blood-Status Moderate ? ? [facility]: [address], [place] Past Encounters None recorded. Social History Tobacco [...]
--- NOTE | 2022-03-08 12:52 | ED.CHESTPAIN ---
HPI - Chest Pain General Chief Complaint: Chest Pain Stated Complaint: Chest pain, fluctuating heartrate Time Seen by Provider: 03/08/22 12:05 History of Present Illness HPI narrative: This 46-year-old female comes in reporting rather sudden onset of chest pain in the left sternal border area. This occurred a couple hours prior to arrival and occurred when she was not doing anything strenuous. She states that she felt some tingling in her left arm. She did not have any nausea, vomiting, shortness of breath, lightheadedness, or diaphoresis. These symptoms felt like a pressure in pain like somebody kneeling on her chest at the time. These symptoms lasted for 10 or 20 minutes and have completely resolved. She is able to reproduce some of this pain mildly by palpating in this area and by taking a deep breath. She has good exercise tolerance and actually plays hockey without any symptoms. She does not have any cardiac risk factors except for a remote smoking history. She quit 17 years ago. Related Data Home Medications Medication Instructions Recorded Confirmed albuterol sulfate 90 mcg/actuation 2 puff inhalation Q4-6H PRN 01/04/22 01/08/22 aerosol inhaler (Ventolin HFA) cholecalciferol (vitamin D3) 50 50 mcg PO QDAY 01/04/22 01/08/22 mcg (2,000 unit) capsule metronidazole 0.75 % lotion 1 applic topical BID 01/04/22 01/08/22 mometasone 50 mcg/actuation HFA 50 mcg inhalation BID 01/04/22 01/08/22 aerosol inhaler (Asmanex HFA) montelukast 10 mg tablet 10 mg PO QDAY 01/04/22 01/08/22 olopatadine 0.7 % eye drops 1 drp ophthalmic (eye) BID 01/04/22 01/08/22 pantoprazole 40 mg tablet,delayed 40 mg PO QDAY 01/04/22 01/08/22 release Previous Rx's Medication Instructions Recorded secukinumab 150 mg/mL subcutaneous 300 mg (2 mL) subcut Q4W #2 mL 11/29/21 syringe (Cosentyx 300 mg/2 Syringes () cyclobenzaprine 5 mg tablet 5 mg PO TID PRN muscle spasm #10 01/05/22 tabs lidocaine 5 % topical patch 1 patch topical QDAY #15 ea 01/05/22 dextroamphetamine-amphetamine 20 20 mg PO QDAY #30 tabs 02/06/22 mg tablet Allergies Allergy/AdvReac Type Severity Reaction Status Date / Time celecoxib Allergy Intermediate Rash Verified 01/08/22 10:55 lansoprazole Allergy Intermediate Verified 01/08/22 10:55 latex Allergy Intermediate Rash Verified 01/08/22 10:55 Sulfa (Sulfonamide Allergy Intermediate Rash Verified 01/08/22 10:55 Antibiotics) Review of Systems Status of ROS Reports: 10 or more systems reviewed and unremarkable except as noted in History and below Narrative Constitutional: No fevers, no weight gain or loss. Eyes: No discharge. No vision changes. HENT: No congestion, no sore throat, no ear pain. Cardiovascular: No palpitations. Chest pain as described above. She had some associated sense of increased heart rate and pounding of her heart. Respiratory: No shortness of breath, no wheezes, no cough. Gastrointestinal: No abdominal pain, no vomiting, no diarrhea. Genitourinary: No dysuria, no hematuria. Musculoskeletal: Normal range of motion. Skin: No rashes, no pruritis. Neurological: No dizziness, weakness, sensory change, speech change. Endo/Heme/Allergies: No bruising or bleeding. No polydipsia. Pysch: no suicidality, no anxiety, no insomnia. All other systems reviewed and are negative. [facility] Medical History Psoriasis Psoriatic arthritis Social History Smoking Status: Former smoker Do you use any of these nicotine containing products: None Second hand tobacco smoke exposure: No How often do you have a drink containing alcohol: 2-3 times a week How many standard drinks containing alcohol do you have on a typical day: 3 or 4 How often do you have six or more drinks on one occasion: Never AUDIT-C Alcohol total score: 4 Non-prescribed substance use: denies use Exam Narrative Exam Narrative: Constitutional: Well-developed, well-nourished, no acute distress. HEENT: Normocephalic, atraumatic. Neck: Normal range of motion. Nontender. Supple. Heart: Regular. No murmurs. Normal rate. Intact distal pulses. Lungs: Clear to auscultation. No wheezes, rhonchi, or rales. Pain can be reduced mildly at this time by taking a deep breath or pressing along the left sternal border. Abdomen: Normal bowel sounds. Nontender. No rebound tenderness. Genitalia: Deferred. Back: No midline tenderness. Normal range of motion. Extremities: Normal range of motion. No injury. Skin: Intact. No rash. Warm. No erythema or pallor. Neurologic: No altered sensation. No weakness. Alert and oriented. Psychiatric: No suicidality. No anxiety or depression. No insomnia. Nursing notes and vitals signs are reviewed. Const Vital Signs, click to edit/add: Vital Signs - 24 hr 03/08/22 12:01 03/08/22 12:12 03/08/22 12:13 Temperature 97.5 F L Pulse Rate 82 Pulse Rate [Left Pulse Oximeter] 85 Blood Pressure 141/85 H Blood Pressure [Right Upper Arm] 114/83 Pulse Oximetry 96 99 99 Oxygen Delivery Method Room Air 03/08/22 12:17 03/08/22 12:30 03/08/22 12:31 Temperature Pulse Rate 80 77 79 Pulse Rate [Left Pulse Oximeter] Blood Pressure 128/91 H 129/86 Blood Pressure [Right Upper Arm] Pulse Oximetry 100 99 99 Oxygen Delivery Method 03/08/22 12:32 03/08/22 13:00 03/08/22 13:02 Temperature Pulse Rate 82 68 72 Pulse Rate [Left Pulse Oximeter] Blood Pressure 129/77 Blood Pressure [Right Upper Arm] Pulse Oximetry 100 100 100 Oxygen Delivery Method Course Vital Signs Vital signs: Initial Vital Signs Temperature 97.5 F L 03/08/22 12:01 Temperature Source Temporal Artery Scan 03/08/22 12:01 Pulse Rate 85 03/08/22 12:01 Blood Pressure 114/83 03/08/22 12:01 Blood Pressure Mean 93 03/08/22 12:01 Blood Pressure Position Sitting 03/08/22 12:01 Pulse Oximetry 96 03/08/22 12:01 Oxygen Delivery Method 03/08/22 12:01 Vital Signs Temperature 97.5 F L 03/08/22 12:01 Pulse Rate 85 03/08/22 12:01 Blood Pressure 114/83 03/08/22 12:01 Pulse Oximetry 96 03/08/22 12:01 Oxygen Delivery Method 03/08/22 12:01 Temperature 97.5 F L 03/08/22 12:01 Pulse Rate 72 03/08/22 13:02 Blood Pressure 129/77 03/08/22 13:02 Pulse Oximetry 100 03/08/22 13:02 Oxygen Delivery Method 03/08/22 12:01 MDM - Chest Pain MDM Narrative Medical decision making narrative: This patient comes in with a couple episodes of chest pain just left of the sternal border that lasted in total about 10-20 minutes but came and went during this time. She does not have any cardiac risk factors except for remote history of smoking 17 years ago. She does not have any exercise intolerance and did not have any other symptoms. These symptoms started while at rest. EKG shows normal sinus rhythm without any ST or T-wave abnormalities. Additionally her labs all returned normal including a troponin at 0. I did also use bedside ultrasound to evaluate her aortic arch and heart function as well as her lungs. She wishes to return home and seems okay to do so to continue current plans. I advised her regarding signs and symptoms that indicate a need for return and re-evaluation. Lab Data Labs: Lab Results 03/08/22 03/08/22 03/08/22 Range/Units 12:52 13:03 13:03 WBC 4.69 (4.50-11.00) K/uL RBC 4.30 (4.00-5.20) m/uL Hgb 12.9 (12.0-16.0) gm/dL Hct 38.7 (33.0-51.0) % MCV 90 (80-100) fL MCH 30 (26-34) pg MCHC 33 (32-36) gm/dL RDW Coeff of Maria Dolores 12.9 (11.5-15.5) % Plt Count 188 (140-440) K/uL Neut % (Auto) 61.0 (42.0-72.0) % Lymph % (Auto) 30.7 (20-44) % Parker % (Auto) 6.6 (0.0-11.0) % Eos % (Auto) 1.1 (0.0-7.0) % Baso % (Auto) 0.4 (0.0-3.0) % Neut # (Auto) 2.86 (1.7-7.0) K/uL Lymph # (Auto) 1.44 (0.90-2.90) K/uL Parker # (Auto) 0.30 (0.00-0.90) K/UL Eos # (Auto) 0.05 (0.00-0.50) K/uL Baso # (Auto) 0.02 (0.00-0.30) K/uL Abs Immat Gran (auto) 0.01 (0.00-0.30) K/uL Sodium 136 (135-149) mmol/L Potassium 4.5 (3.6-5.1) mmol/L Chloride 103 (96-114) mmol/L Carbon Dioxide 27 (20-32) mmol/L BUN 15 (5-24) mg/dL Creatinine 0.8 (0.5-1.5) mg/dL Estimated Creat Clear 93.78 Estimated GFR 93 ml/min Glucose 102 (60-115) mg/dL Calcium 9.4 (8.4-10.6) mg/dL POC Troponin I 0.00 L (0.01-0.04) ng/ml ECG Data Attestation: I personally reviewed and interpreted this ECG as follows: Interpretation: Normal sinus rhythm. Rate is 71 beats per minute. There are no ST or T-wave abnormalities. Discharge Plan Discharge Clinical Impression: Atypical chest pain Patient Disposition: Home, Self-Care Condition: Improved Additional Instructions: Take medication as needed and indicated. Follow up with MD or return if worsening. Prescriptions: No Action Cosentyx (2 Syringes) 150 mg/mL syringe 300 mg subcut Q4W Qty: 2 7RF Rx Instructions: start 4 wks after last weekly dose;inject [id number] doses each in different thigh/upper arm/abdominal areas montelukast 10 mg tablet 10 mg PO QDAY pantoprazole 40 mg tablet,delayed release (DR/EC) 40 mg PO QDAY albuterol sulfate [Ventolin HFA] 90 mcg/actuation HFA aerosol inhaler 2 puff inhalation Q4-6H PRN Asmanex HFA 50 mcg/actuation HFA aerosol inhaler 50 mcg inhalation BID metronidazole 0.75 % lotion 1 applic topical BID olopatadine 0.7 % drops 1 drp ophthalmic (eye) BID cholecalciferol (vitamin D3) 50 mcg (2,000 unit) capsule 50 mcg PO QDAY cyclobenzaprine 5 mg tablet 5 mg PO TID PRN (Reason: muscle spasm) Qty: 10 0RF lidocaine 5 % adhesive patch,medicated 1 patch topical QDAY Qty: 15 0RF Rx Instructions: leave on most painful area for up to 12 hrs dextroamphetamine-amphetamine 20 mg tablet 20 mg PO QDAY Qty: 30 0RF Follow Up/Referrals: Mitul Donato MD [Primary Care Provider] - Stand Alone Forms: [facility] Info Instructions Procedures Ultrasound Cardiac exam #1: Anatomical areas examined: parasternal long and parasternal short Indications: chest pain Exam type: limited transthoracic echocardiogram Impression: negative exam
[2022-03-08 13:11] LABS: Basophils Absolute Auto 0.02 K/uL (0.00-0.30); Basophils Percent Auto 0.4 % (0.0-3.0); Eosinophils Absolute Auto 0.05 K/uL (0.00-0.50); Eosinophils Percent Auto 1.1 % (0.0-7.0); Hematocrit 38.7 % (33.0-51.0); Hemoglobin* 12.9 gm/dL (12.0-16.0); Immature Granulocytes Abs Auto 0.01 K/uL (0.00-0.30); Lymphocytes Absolute Auto 1.44 K/uL (0.90-2.90); Lymphocytes Percent Auto 30.7 % (20-44); Mean Corpuscular HGB Conc 33 gm/dL (32-36); Mean Corpuscular Hemoglobin 30 pg (26-34); Mean Corpuscular Volume 90 fL (80-100); Monocytes Percent Auto 6.6 % (0.0-11.0); Neutrophils Absolute Auto 2.86 K/uL (1.7-7.0); Platelet Count* 188 K/uL (140-440); RDW Coefficient of Variation % 12.9 % (11.5-15.5); White Blood Count* 4.69 K/uL (4.50-11.00)
[2022-03-08 13:16] LABS: Slide Review Reflex No
[2022-03-08 13:35] LABS: Blood Urea Nitrogen* 15 mg/dL (5-24); Calcium* 9.4 mg/dL (8.4-10.6); Carbon Dioxide* 27 mmol/L (20-32); Chloride* 103 mmol/L (96-114); Creatinine* 0.8 mg/dL (0.5-1.5); Est. Creatinine Clearance* 93.78; Estimated Glomerular Filt Rate 93 ml/min; Glucose* 102 mg/dL (60-115); Potassium* 4.5 mmol/L (3.6-5.1); Sodium* 136 mmol/L (135-149)
== END 2022-03-08 14:16 | disposition home or self-care (01) ==
PROVIDERS: Emergency Provider Emergency Medicine Emergency Medical Services; PCP Family Medicine
DX: R07.89 Other chest pain (principal)
CPT/HCPCS: 36415; 76604; 76705; 80048; 85025; 93005; 93308; 99284; 99285

== ENCOUNTER 2022-05-11 09:35 | Outpatient (CLI) | payer BC, SELFPAY ==
[2022-05-11 14:17] LABS: Albumin* 4.3 g/dL (3.3-5.0); Chloride* 108 mmol/L (96-114)
[2022-05-11 14:18] LABS: Potassium* 4.4 mmol/L (3.6-5.1); Sodium* 137 mmol/L (135-149)
[2022-05-11 14:20] LABS: Creatinine* 0.8 mg/dL (0.5-1.5); Estimated Glomerular Filt Rate 93 ml/min
[2022-05-11 14:21] LABS: Alanine Aminotransferase* 24 U/L (4-35); Alkaline Phosphatase* 72 U/L (40-150); Aspartate Amino Transferase* 29 U/L (12-35); Bilirubin Total* 0.6 mg/dL (0.1-1.5); Blood Urea Nitrogen* 17 mg/dL (5-24); Calcium* 8.7 mg/dL (8.4-10.6); Carbon Dioxide* 26 mmol/L (20-32); Glucose* 107 mg/dL (60-115); Total Protein* 6.6 g/dL (6.0-8.3)
== END 2022-05-11 09:36 | disposition home or self-care (01) ==
PROVIDERS: PCP Family Medicine; Visit Provider Family Medicine
DX: R11.0 Nausea (principal); R63.5 Abnormal weight gain; R30.0 Dysuria
CPT/HCPCS: 80053; 84443

== ENCOUNTER 2022-06-04 09:32 | Outpatient (CLI) | payer BC, SELFPAY ==
--- NOTE | 2022-06-04 09:45 | CRLHL7_ITS ---
For Patients: As a result of the Century Cures Act, medical imaging exams and procedure reports are released immediately into your electronic medical record. You may view this report before your referring provider. If you have questions, please contact your health care provider. INDICATION: Nausea. Abdominal pain. History of a 5 mm stone within the left ureteral pelvic junction on a prior CT April 24, 2020. TECHNIQUE: Right upper quadrant ultrasound. FINDINGS: Normal gallbladder without stones or sludge. The gallbladder wall measures 1.8 mm. The common bile duct measures 5.2 mm. The liver, spleen, and right kidney are unremarkable. No intrahepatic mass or biliary dilatation. The right kidney measures 10.2 x 4.9 x 5.1 cm. No right upper quadrant ascites. The proximal IVC and proximal aorta are normal. IMPRESSION: Normal right upper quadrant ultrasound. Dictated by Shar Cruz MD @ 06/04/2022 10:49:24 AM (Electronically Signed)
== END 2022-06-04 09:33 | disposition home or self-care (01) ==
LOC: US 09:33
PROVIDERS: PCP Family Medicine; Visit Provider Family Medicine
DX: R10.9 Unspecified abdominal pain (principal); N20.0 Calculus of kidney
CPT/HCPCS: 76705; 87086

== ENCOUNTER 2022-06-04 17:00 | Emergency (ER) | payer BC, SELFPAY ==
[2022-06-04 17:16] VITALS: BP 125/86; PULSE 70; RESP 16; TEMP 37.2; BMI 35.6
--- NOTE | 2022-06-04 18:12 | CRLHL7_ITS ---
For Patients: As a result of the Century Cures Act, medical imaging exams and procedure reports are released immediately into your electronic medical record. You may view this report before your referring provider. If you have questions, please contact your health care provider. INDICATION: Flank pain. TECHNIQUE: CT abdomen and pelvis without contrast. COMPARISON: CT April 2020. FINDINGS: Lower chest: The visualized lower lungs are aerated. No pleural or pericardial effusion. ABDOMEN: Liver: Normal attenuation. Gallbladder and biliary: Normal gallbladder without radiopaque stone. Normal caliber bile ducts. Spleen: Normal size and attenuation. Pancreas: The noncontrast pancreas is homogeneous in attenuation without peripancreatic inflammatory changes or ductal dilatation. Adrenal glands: Normal adrenal glands. Kidneys and ureters: Punctate nonobstructing left-sided renal stones. No hydroureteronephrosis. GI tract: The stomach is relatively decompressed. Normal caliber small and large bowel loops. Normal appendix. Vascular structures: Normal caliber abdominal aorta. Lymph nodes: No lymphadenopathy in the abdomen or pelvis by size criteria. Peritoneum: No free air, free fluid, or focal drainable fluid collection. PELVIS: Genitourinary system: Normal urinary bladder. Age-appropriate uterus and ovaries. Appropriately positioned IUD. SKELETAL STRUCTURES AND SOFT TISSUES: A few punctate sclerotic foci in the pelvis statistically represent bone islands. Multilevel lumbar spondylosis most severe at L4 through S1. IMPRESSION: 1. No acute abdominal or pelvic process. No obstruction. No hydroureteronephrosis. Normal appendix. 2. Nonobstructing punctate left-sided nephrolithiasis. Please note that all CT scans at this facility use dose modulation, iterative reconstruction, and/or weight-based dosing when appropriate to reduce radiation dose to as low as reasonably achievable. Dictated by Akil Wooten MD @ 06/04/2022 7:18:46 PM (Electronically Signed)
[2022-06-04] MEDS: ONDANSETRON ODT 4 MG TAB PO (18:28)
[2022-06-04] MEDS: KETOROLAC 30 MG/ML inj IM (18:28)
[2022-06-04 19:06] LABS: Basophils Percent Auto 0.5 % (0.0-3.0); Eosinophils Percent Auto 1.9 % (0.0-7.0); Hematocrit 37.1 % (33.0-51.0); Hemoglobin* 12.4 gm/dL (12.0-16.0); Lymphocytes Percent Auto 37.3 % (20-44); Mean Corpuscular HGB Conc 33 gm/dL (32-36); Mean Corpuscular Hemoglobin 30 pg (26-34); Mean Corpuscular Volume 90 fL (80-100); Monocytes Percent Auto 5.8 % (0.0-11.0); Neutrophils Percent Auto 54.5 % (42.0-72.0); Platelet Count* 198 K/uL (140-440); RDW Coefficient of Variation % 12.7 % (11.5-15.5); Red Blood Count 4.12 m/uL (4.00-5.20); White Blood Count* 4.32 K/uL (4.50-11.00)
[2022-06-04 19:14] LABS: Slide Review Reflex No
[2022-06-04 19:36] LABS: Chloride* 106 mmol/L (96-114); Sodium* 138 mmol/L (135-149)
[2022-06-04 19:37] LABS: Potassium* 4.4 mmol/L (3.6-5.1)
[2022-06-04 19:39] LABS: Creatinine* 0.9 mg/dL (0.5-1.5); Est. Creatinine Clearance* 79.63; Estimated Glomerular Filt Rate 80 ml/min
--- NOTE | 2022-06-04 19:39 | ED_ITS ---
HPI - General Adult General Date Seen: 06/04/22 Chief complaint: Flank Pain Stated complaint: Flank Pain, Nausea Time Seen by Provider: 06/04/22 17:05 Source: patient History of Present Illness HPI narrative: Patient is a 47-year-old woman who presents for evaluation of left flank pain. She says she has had some pain in this area for a long time now, but in the past few days it has gotten more intense, sharper. She has a history of kidney stones and wonders if this is another kidney stone. She has not had any dysuria, hematuria. No fevers, shortness of breath, cough. It does hurt when she moves, hurts to take a deep breath. She was seen in clinic earlier, she is being evaluated for chronic nausea and so she had a right upper quadrant ultrasound to evaluate for that. That ultrasound was normal but she has not had an evaluation for the left flank pain. Is slightly had a 5 mm stone on the left and had a stent, that was back in 2019. Related Data Home Medications Medication Instructions Recorded Confirmed albuterol sulfate 90 mcg/actuation 2 puff inhalation Q4-6H PRN 01/04/22 06/04/22 aerosol inhaler (Ventolin HFA) cholecalciferol (vitamin D3) 50 50 mcg PO QDAY 01/04/22 06/04/22 mcg (2,000 unit) capsule metronidazole 0.75 % lotion 1 applic topical BID 01/04/22 06/04/22 mometasone 50 mcg/actuation HFA 50 mcg inhalation BID 01/04/22 06/04/22 aerosol inhaler (Asmanex HFA) montelukast 10 mg tablet 10 mg PO QDAY 01/04/22 06/04/22 olopatadine 0.7 % eye drops 1 drp ophthalmic (eye) BID 01/04/22 06/04/22 pantoprazole 40 mg tablet,delayed 40 mg PO QDAY 01/04/22 06/04/22 release Previous Rx's Medication Instructions Recorded secukinumab 150 mg/mL subcutaneous 300 mg (2 mL) subcut Q4W #2 mL 11/29/21 syringe (Cosentyx 300 mg/2 Syringes () dextroamphetamine-amphetamine 20 20 mg PO QDAY #30 tabs 05/16/22 mg tablet ondansetron 4 mg disintegrating 4 mg PO Q6H PRN nausea and 06/04/22 tablet vomiting #30 tabs prochlorperazine maleate 10 mg 10 mg PO Q8H PRN #10 tabs 06/04/22 tablet (Compazine) Allergies Allergy/AdvReac Type Severity Reaction Status Date / Time celecoxib Allergy Intermediate Rash Verified 06/04/22 17:22 lansoprazole Allergy Intermediate Verified 06/04/22 17:22 latex Allergy Intermediate Rash Verified 06/04/22 17:22 Sulfa (Sulfonamide Allergy Intermediate Rash Verified 06/04/22 17:22 Antibiotics) Review of Systems Status of ROS: Reports: 10 or more systems reviewed and unremarkable except as noted in History and below [facility] Surgical History Status post cervical spinal arthrodesis Status post delivery Status post tonsillectomy Family History Other Crohn's disease Social History Smoking Status: Former smoker Do you use any of these nicotine containing products: None Second hand tobacco smoke exposure: No How often do you have a drink containing alcohol: 2-3 times a week How many standard drinks containing alcohol do you have on a typical day: 3 or 4 How often do you have six or more drinks on one occasion: Never AUDIT-C Alcohol total score: 4 Non-prescribed substance use: denies use Exam Narrative: Exam Narrative: Vital signs as noted above. In general, an alert, well-appearing patient. Head: Normocephalic, atraumatic. Eyes: Pupils are equal reactive. Extraocular movements are full. Conjunctivae are normal. ENT: Mucous membranes are moist. Throat is normal. Neck: Supple without lymphadenopathy. Heart: Regular rate and rhythm. No murmur or rub. Lungs: Clear bilaterally. No increased work of breathing, crackles or wheezes. Back: Positive for CVA tenderness on the left. Abdomen: Soft and nontender. No organomegaly. Extremities: Well perfused. No edema. No calf tenderness. Pulses intact. Neurologic: Patient is alert and oriented to person and place. Speech is fluent. Face is symmetric. Moves all extremities equally. Affect: Normal. Skin: Warm and dry. Well perfused. Const: Vital Signs, click to edit/add: Vital Signs - 24 hr 06/04/22 17:16 Temperature 98.9 F Pulse Rate [Right Pulse Oximeter] 70 Respiratory Rate 16 Blood Pressure [Ri ght Upper Arm] 125/86 Oxygen Delivery Me thod Room Air Documenting provider has reviewed patient's vital signs: yes Course Course Hospital Course: I reviewed the urinalysis done in clinic earlier. UA was turbid, but no red cells or white cells. I gave her some Toradol and Zofran here. She has an IUD, however no one has checked a test I did feel would be while just making sure that was neg ative, given that she says she has been having difficulty with nausea these past couple of months. CBC shows a mildly depressed white count of 4.3. Hemoglobin is normal at 12.4, platelet count normal. Metabolic panel shows a normal BUN and creatinine. Sodium is normal, potassium 4.4. Other chemistries are pending at this time. test is still currently pending as well. She did have a CT scan of the abdomen. I reviewed this, I did not see any evidence of hydronephrosis or perinephric stranding. She does have some nonobstructing stones in the left kidney. Final radiology report is as follows: 1. No acute abdominal or pelvic process. No obstruction. No hydroureteronephrosis. Normal appendix. 2. Nonobstructing punctate left-sided nephrolithiasis. She is feeling better after Toradol and Zofran here. She would like to have some Compazine at home as she has found that helpful in the past and right now all she has is Zofran. Etiology of her back pain is little unclear. There is no evidence of pyelonephritis, kidney stone, other hydronephrosis. She does tell me that she still has the stent in place, in the absence of hydronephrosis I am not sure whether the stent could be causing pain but did recommend that she talk with her urologist. Her pain does seem to be a little more muscular to me but I think it is worth talking with them about that. test was ne gative. Lung bases are clear, no respiratory symptoms, I do not think this represents pneumonia. In the absence of any respiratory symptoms, hypoxia, shortness of breath, tachypnea, tachycardia, I do not think this represents pulmonary embolism. Symptoms have been ongoing for quite some time. No evidence of other intra-abdominal pathology such as pancreatitis, splenic pathology, gastritis, peptic ulcer disease. For now, I recommended symptomatic control with ibuprofen and/or Tylenol, continued follow-up with primary care. Return for severe or worsening symptoms. Vital Signs Vital signs: Initial Vital Signs Temperature 98.9 F 06/04/22 17:16 Temperature Source Temporal Artery Scan 06/04/22 17:16 Pulse Rate 70 06/04/22 17:16 Respiratory Rate 16 06/04/22 17:16 Blood Pressure 125/86 06/04/22 17:16 Blood Pressure Mean 99 06/04/22 17:16 Blood Pressure Position Sitting 06/04/22 17:16 Oxygen Delivery Method 06/04/22 17:16 Vital Signs Temperature 98.9 F 06/04/22 17:16 Pulse Rate 70 06/04/22 17:16 Respiratory Rate 16 06/04/22 17:16 Blood Pressure 125/86 06/04/22 17:16 Oxygen Delivery Method 06/04/22 17:16 Temperature 98.9 F 06/04/22 17:16 Pulse Rate 70 06/04/22 17:16 Respiratory Rate 16 06/04/22 17:16 Blood Pressure 125/86 06/04/22 17:16 Oxygen Delivery Method 06/04/22 17:16 Medical Decision Making Lab Data Labs: Lab Results 06/04/22 06/04/22 06/04/22 Range/Units 18:49 18:49 18:49 WBC 4.32 L (4.50-11.00) K/uL RBC 4.12 (4.00-5.20) m/uL Hgb 12.4 (12.0-16.0) gm/dL Hct 37.1 (33.0-51.0) % MCV 90 (80-100) fL MCH 30 (26-34) pg MCHC 33 (32-36) gm/dL RDW Coeff of Maria Dolores 12.7 (11.5-15.5) % Plt Count 198 (140-440) K/uL Neut % (Auto) 54.5 (42.0-72.0) % Lymph % (Auto) 37.3 (20-44) % [place] % (Auto) 5.8 (0.0-11.0) % Eos % (Auto) 1.9 (0.0-7.0) % Baso % (Auto) 0.5 (0.0-3.0) % Neut # (Auto) 2.40 (1.7-7.0) K/uL Lymph # (Auto) 1.60 (0.90-2.90) K/uL [place] # (Auto) 0.30 (0.00-0.90) K/UL Eos # (Auto) 0.10 (0.00-0.50) K/uL Baso # (Auto) 0.00 (0.00-0.30) K/uL Sodium 138 (135-149) mmol/L Potassium 4.4 (3.6-5.1) mmol/L Chloride 106 (96-114) mmol/L Carbon Dioxide 29 (20-32) mmol/L BUN 18 (5-24) mg/dL Creatinine 0.9 (0.5-1.5) mg/dL Estimated Creat Clear 79.63 Estimated GFR 80 ml/min Glucose 101 (60-115) mg/dL Calcium 8.6 (8.4-10.6) mg/dL Total Bilirubin 0.4 (0.1-1.5) mg/dL Direct Bilirubin 0.2 (0.0-0.5) mg/dL AST 20 (12-35) U/L ALT 18 (4-35) U/L Alkaline Phosphatase 62 (40-150) U/L C-Reactive Protein < 0.5 L (0.5-1.0) mg/dL Total Protein 6.1 (6.0-8.3) g/dL Albumin 4.1 (3.3-5.0) g/dL Lipase 121 (23-300) U/L HCG, Qual (Negative) 06/04/22 Range/Units 18:49 WBC (4.50-11.00) K/uL RBC (4.00-5.20) m/uL Hgb (12.0-16.0) gm/dL Hct (33.0-51.0) % MCV (80-100) fL MCH (26-34) pg MCHC (32-36) gm/dL RDW Coeff of Maria Dolores (11.5-15.5) % Plt Count (140-440) K/uL Neut % (Auto) (42.0-72.0) % Lymph % (Auto) (20-44) % [place] % (Auto) (0.0-11.0) % Eos % (Auto) (0.0-7.0) % Baso % (Auto) (0.0-3.0) % Neut # (Auto) (1.7-7.0) K/uL Lymph # (Auto) (0.90-2.90) K/uL [place] # (Auto) (0.00-0.90) K/UL Eos # (Auto) (0.00-0.50) K/uL Baso # (Auto) (0.00-0.30) K/uL Sodium (135-149) mmol/L Potassium (3.6-5.1) mmol/L Chloride (96-114) mmol/L Carbon Dioxide (20-32) mmol/L BUN (5-24) mg/dL Creatinine (0.5-1.5) mg/dL Estimated Creat Clear Estimated GFR ml/min Glucose (60-115) mg/dL Calcium (8.4-10.6) mg/dL Total Bilirubin (0.1-1.5) mg/dL Direct Bilirubin (0.0-0.5) mg/dL AST (12-35) U/L ALT (4-35) U/L Alkaline Phosphatase (40-150) U/L C-Reactive Protein (0.5-1.0) mg/dL Total Protein (6.0-8.3) g/dL Albumin (3.3-5.0) g/dL Lipase (23-300) U/L HCG, Qual Negative (Negative) Discharge Plan Discharge Clinical Impression: Left flank pain Patient Disposition: Home, Self-Care Condition: Improved Instructions: Flank Pain (ED) Additional Instructions: Ibuprofen 400 mg plus Tylenol 1000 mg 3 times daily with food as needed. Zofran or Compazine if needed for nausea. Follow up with Dr. Donato to continue workup. Labs today are all normal. CT scan shows no acute process, no obstruction or hydronephrosis. Nonobstructing kidney stones in the left kidney. Prescriptions: New prochlorperazine maleate [Compazine] 10 mg tablet 10 mg PO Q8H PRNQty: 10 0RF No Action ondansetron 4 mg tablet,disintegrating 4 mg PO Q6H PRN (Reason: nausea and vomiting) Qty: 30 1RF Cosentyx (2 Syringes) 150 mg/mL syringe 300 mg subcut Q4W Qty: 2 7RF Rx Instructions: start 4 wks after last weekly dose;inject [id number] doses each in different thigh/upper arm/abdominal areas montelukast 10 mg tablet 10 mg PO QDAY pantoprazole 40 mg tablet,delayed release (DR/EC) 40 mg PO QDAY albuterol sulfate [Ventolin HFA] 90 mcg/actuation HFA aerosol inhaler 2 puff inhalation Q4-6H PRN Asmanex HFA 50 mcg/actuation HFA aerosol inhaler 50 mcg inhalation BID metronidazole 0.75 % lotion 1 applic topical BID olopatadine 0.7 % drops 1 drp ophthalmic (eye) BID cholecalciferol (vitamin D3) 50 mcg (2,000 unit) capsule 50 mcg PO QDAY dextroamphetamine-amphetamine 20 mg tablet 20 mg PO QDAY Qty: 30 0RF Follow Up/Referrals: Mitul Donato MD [Primary Care Provider] - Stand Alone Forms: Hello [facility] Info Instructions
[2022-06-04 19:40] LABS: Blood Urea Nitrogen* 18 mg/dL (5-24); Calcium* 8.6 mg/dL (8.4-10.6); Carbon Dioxide* 29 mmol/L (20-32); Glucose* 101 mg/dL (60-115)
[2022-06-04 19:55] LABS: Albumin* 4.1 g/dL (3.3-5.0); HCG Qualitative Serum* Negative (Negative)
[2022-06-04 19:58] LABS: Bilirubin Direct* 0.2 mg/dL (0.0-0.5); Bilirubin Total* 0.4 mg/dL (0.1-1.5)
[2022-06-04 19:59] LABS: Alanine Aminotransferase* 18 U/L (4-35); Alkaline Phosphatase* 62 U/L (40-150); Aspartate Amino Transferase* 20 U/L (12-35); Lipase* 121 U/L (23-300); Total Protein* 6.1 g/dL (6.0-8.3)
[2022-06-04 20:09] LABS: C Reactive Protein* < 0.5 mg/dL (0.5-1.0)
== END 2022-06-04 20:33 | disposition home or self-care (01) ==
PROVIDERS: Emergency Provider Emergency Medicine; PCP Family Medicine
DX: R10.9 Unspecified abdominal pain (principal)
CPT/HCPCS: 36415; 74176; 80048; 80076; 83690; 84703; 85025; 86140; 96372; 99284; A9270; J1885

== ENCOUNTER 2023-10-14 15:14 | Outpatient (CLI) | payer BC, SELFPAY ==
--- OUTSIDE RECORDS SUMMARY | 2023-10-14 15:17 | XMS_ITS | Referral Summary ---
Author Organization [facility] Address [address] [place] [address]. [place] [address] Care Team Providers Care Stencil Maker Name Role Phone Rohit Donato MD Primary Care Provider [phone] Allergies Active Allergy Reactions Criticality Noted Date Comments Celecoxib 05/26/2020 Lansoprazole 05/27/2020 Latex 05/26/2020 Swelling, lip itchiness Sulfa Antibiotics 05/26/2020 Medications Medication Sig Dispensed Refills Start Date End Date Status prochlorperazine (COMPAZINE) 5 MG tablet Take 5 mg by mouth every 4 hours as needed for nausea or vomiting Active amphetamine-dextroamph etamine (ADDERALL XR) 20 MG 24 hr capsule Take 20 mg by mouth daily Active ondansetron (ZOFRAN) 4 MG tablet Take 4 mg by mouth every 6 hours as needed for nausea Active oxyCODONE-acetaminophe n (PERCOCET) 5-325 MG tablet Take 1-2 tablets by mouth every 4 hours as needed for severe pain Active Secukinumab (COSENTYX, 300 MG DOSE, SC) Active tamsulosin (FLOMAX) 0.4 MG capsule Take 0.4 mg by mouth daily Active pantoprazole sodium (PROTONIX) 40 MG packet Take 40 mg by mouth daily Active OLOPATADINE HCL OP Apply 1 drop to eye 2 times daily Active montelukast (SINGULAIR) 10 MG tablet Take 10 mg by mouth At Bedtime Active glucosamine-chondroiti n 500-400 MG CAPS per capsule Take 1 capsule by mouth daily Active Flaxseed, Linseed, (FLAXSEED OIL PO) Active magnesium oxide 400 MG CAPS Take 1 tablet by mouth daily Active magnesium oxide 200 MG TABS Take 400 mg by mouth daily Active Vitamin D, Cholecalciferol, 25 MCG (1000 UT) CAPS Take 2 tablets by mouth daily Active cetirizine (ZYRTEC) 10 MG tablet Take 10 mg by mouth daily Active Vit-Fe Fumarate-FA ( MULTIVITAMIN W/IRON) 27-0.8 MG tablet Take 1 tablet by mouth daily Active Social History Tobacco Use Types Packs/Day Years Used Date Smoking Tobacco: Never Smokeless Tobacco: Never Alcohol Use Standard Drinks/Week Comments Yes 0 (1 standard drink = 0.6 oz pur e alcohol) Adolescent Education Answer Date Record ed Getting School Help Needed Not on file 02/02 Sex and Gender Information Value Date Recorded Sex Assigned at Not on file Gender Identity Not on file Sexual Orientation Not on file Last Filed Vital Signs Vital Sign Reading Time Taken Comments Blood Pressure 118/76 05/30/2020 2:00 PM CRIMINAL RECORDS TECHNICIAN Pulse 87 05/30/2020 2:00 PM CRIMINAL RECORDS TECHNICIAN Temperature 37.1 ??C (98.8 ??F) 05/30/2020 2:00 PM CS T Respiratory Rate 16 05/30/2020 2:00 PM CRIMINAL RECORDS TECHNICIAN Oxygen Saturation 97% 05/30/2020 2:00 PM CRIMINAL RECORDS TECHNICIAN Inhaled Oxygen Concentration - - Weight 102.5 kg (226 lb) 05/30/2020 9:00 AM CRIMINAL RECORDS TECHNICIAN Height 175.3 cm (5' 9) 05/30/2020 9:00 AM CRIMINAL RECORDS TECHNICIAN Body Mass Index 33.37 05/30/2020 9:00 AM CRIMINAL RECORDS TECHNICIAN Plan of Treatment Not on file Care Teams Stencil Maker Relationship Specialty Start Date End Date Rohit Donato MD PCP - General Family Medicine 05/30/20
--- OUTSIDE RECORDS SUMMARY | 2023-10-14 15:17 | XMS_ITS | Clinical Summary ---
Author Organization [employer] [facility] Address [place], [place] [address] Care Team Providers Care Publicity Person Name Role Phone Mitul Donato MD Primary Care Provider Allergies Active Allergy Reactions Criticality Noted Date Comments Celecoxib Edema 04/29/2008 Lansoprazole 07/22/2008 Latex Dermatitis Omeprazole Hives 02/19/2008 Sulfa (Sulfonamide Antibiotics) Medications Medication Sig Dispensed Refills Start Date End Date Status DME Adjustable monitor stand for work computer. Use daily to help with posture to protect neck. 1 Each 0 07/11/2009 Active Imiysvzo-Ys-Hsz-Fe-F A ( VITAMIN) Tab tablet Take 1 tablet by mouth once daily. 0 01/27/2010 Active COSENTYX PEN, 2 PENS, 150 mg/mL pnij 0 12/09/2018 Acti ve Phentermine HCl 37.5 mg capsule TK 1 C PO ONCE D 2 10/30/2018 Active dextroamphetamine-am phetamine (ADDERALL) 20 mg tablet TK 1 T PO D 0 11/14/2018 Active montelukast (SINGULAIR) 10 mg tablet TK 1 T PO HS 5 10/15/2018 Active olopatadine (PAZEO) 0.7 % ophthalmic solution Place into the eye(s). Active cyclobenzaprine (FLEXERIL) 10 mg tabletIndications:S/ P cervical spinal fusion,Cervical myofascial pain syndrome,Cervical radiculitis Take 1 tablet by mouth 3 times daily if needed for Muscle Spasm. 36 tablet 2 12/18/2018 Active methylPREDNISolone (MEDROL, ELEANOR,) 4 mg tabletIndications:Ce rvical radiculitis Take by mouth as instructed per packaging. 1 Package 12/18/2018 Active Active Problems Problem Noted Date Diagnosed Date Controlled substance agreement signed 05-19-08 ERX 04/22/2014 S/P cervical C5-7 fusion 03/04/2014 Cervical myofascial pain syndrome 03/04/2014 Cervical radiculitis 03/19/2012 GERD (gastroesophageal reflux disease) 8 Displacement of cervical int ervertebral disc without myelopathy 12/04/2006 Resolved Problems Problem Noted Date Diagnosed Date Resolved Date Fusion of spine of cervical region 03/19/2012 03/04/2014 Narcotic Contract on File 05/19/2008 Overview: Oxycontin 20 three times daily, and percocet 7.5/ 5 a day breakthrough pain. Backache, unspecified 07/22/20062013 Cervicalgia 07/22/2006 03/04/2014 Overview: W/C DOI 07/13/06 Immunizations Name Administration Dates Next Due DTaP 07/01/1982, 9,07/11/1978,1977 ,1977 HepA-HepB (Twinrix) 10/24/2003 Hepatitis A, Unspecified 12/20/2001 Hepatitis B (Adult) 09/15/2003,07/14/2003 Influenza Virus, Unspecified 01/31/2009,10/21/18 98,06/02/1996 Influenza, IIV3 (Age 6-35 mos) 4,02/04/2013,03/24/2012,03/23/2011 ,02/14/2010 Influenza, IIV3 (Age >=3 years) 02/24/2008 MMR 06/02/1996,08/31/1994,07/11/1978 Meningococcal Vaccine (Menomune) 10/24/2003,05/14 Polio Virus, Unspecified 06/02/1996,02/0 05/1982,01/11/1979,07/11/1978 ,1977 Td (Age >=7 Years) 10/08/1995 Tdap 03/12/2013,07/25/2007 Family History Medical History Relation Name Comments Allergies Father Arthritis Maternal Grandfather Alcohol/Drug Maternal Grandmother Arthritis Maternal Grandmother Osteoporosis Maternal Grandmother Alcohol/Drug Mother Allergies Mother Cancer Mother skin, basal lili l Arthritis Paternal Grandfather Heart Disease Paternal Grandfather Hyperlipidemia Paternal Grandfather Hypertension Paternal Grandfather Arthritis Paternal Grandmother Heart Disease Paternal Grandmother deceas ed at age 56 Hyperlipidemia Paternal Grandmother Hypertension Paternal Grandmother Allergies Sister 1 Cancer Sister 2 basal cell Relation Name Status Comments Father Maternal Grandfather Maternal Grandmother Mother Paternal Grandfather Paternal Grandmother Sister 1 Sister 2 Social History Tobacco Use Types Packs/Day Years Used Date Smoking Tobacco: Former Cigarettes Q uit: 12/03/2004 Smokeless Tobacco: Never Tobacco Cessation:Counseling Given: Yes Comments:2004 Alcohol Use Standard Drinks/Week Comments Yes 0 (1 standard drink = 0.6 oz pur e alcohol) occasional PHQ-2 Answer Date Recorded PHQ-2 Score 0 12/18/2018 Sex and Gender Information Value Date Recorded Sex Assigned at Not on file Gender Identity Not on file Sexual Orientation Not on file Obstetrics History Last Filed Vital Signs Vital Sign Reading Time Taken Comments Blood Pressure 110/70 12/18/2018 10:35 AM CDT Pulse 80 12/18/2018 10:35 AM CDT Temperature 36.7 ??C (98.1 ??F) 04/26/2017 9:53 AM CS T Respiratory Rate 16 12/18/2018 10:35 AM CDT Oxygen Saturation 100% 04/26/2017 9:53 AM CAN WORKER Inhaled Oxygen Concentration - - Weight 103.9 kg (229 lb) 12/18/2018 10:35 AM CDT Height 175.3 cm (5' 9) 12/18/2018 10:35 AM CDT Body Mass Index 33.82 12/18/2018 10:35 AM CDT Plan of Treatment Health Maintenance Due Date Last Done Comments HIV for age 15-65 1992 Hepatitis C screening for age 18-79 1995 BMI (ht and wt on same day) for age 18+ 12/19/2019 12/18/2018, 04/26/2017, 10/25/2016, Additional history exists Depression screening for age 12+ 12/19/2019 12/18/2018, 09/18/2016, 09/05/2015 Pap test for age 21-65 02/11/2021 8, 02/11/2018, 06/11/2013, Additional history exists Colonoscopy through age 75 2022 Lipids for age 45-75 2022 02/15/2003, 02/16/20 03 Mammogram for age 45-75 2022 COVID-19 vaccine series (2022- season) 2023 Tetanus booster 03/12/2023 03/12/2013, 06/14 (Completed outside of [facility]), 07/25/2007, Additional history exists Influenza for age 9-49 01/12/2024 9, 02/24/2008, 10/21/1997, Additional history exists Tdap Completed 03/12/2013, 07/25/2007 Pneumococcal series for age 6-64 Aged Out No longer eligible based on patient's age to complete this topic Medical Devices Implanted Type Area Extrusion Engineer Device Identifier Shelf Expiration Date Model / Serial / Lot Plate Cerv Ant 42.5mm Atlantisvision [id number] - [id number] Implanted:Qty: 1 on 07/23/2008 at Spine Implants Spine SOFAMOR DANEK [id number]# / / [id number] spacer Colton/Canclls 7mm A Lordotic Acf Fd [id number] [[id number]] Implanted:Qty: 1 on 07/23/2008 at Explanted:at (Quantity not on file) Spine Musculoskeletal Transplant 06/17/2011 [id number]# / [id number] / [id number] tty Progenix Dbm 1cc [[id number]] Implanted:Qty: 1 on 07/23/2008 at Explanted:at (Quantity not on file) Spine Medtronic 03/17/2010 [id number]# / [id number] / Screw Fix 4.0x14 Self Drill - [id number] Implanted:Qty: 6 on 07/23/2008 at [employer] [id number]# / / Spacer Colton/Canclls 7mm A Lordotic Acf Fd [id number] - [id number] Implanted:Qty: 1 on 07/23/2008 at Explanted:at (Quantity not on file) Spine Musculoskeletal Transplant 05/01/2011 [id number]# / [id number] / Procedures Procedure Name Priority Date/Time Associated Diagnosis Comments LOG BRANDER THIN PREP PAP SCREEN IMAGED Routine 02/11/2018 8:30 AM CDT CHOLESTEROL,TOTAL Routine 02/15/2003 9:3 0 AM CDT from Last 3 Months or Most Recently Relevant to Health Maintenance Results * LOG BRANDER THIN PREP PAP SCREEN IMAGED (02/11/2018 8:30 AM CDT) Case Report Gynecologic Cytology Report ? Case: [id number] ? Authorizing Provider: ??Mitul Donato ? Collected: ? 02/11/2018 0830 ? First Screen: ?Mendy Arellano ?Received: ?02/11/2018 1836 ? Specimen: ?LOG BRANDER ThinPrep Vial Screening, Cervical/Vaginal ? 02/20/2018 2:50 PM CDT [facility] INTERPRETATION/ RESULT NEGATIVE FOR INTRAEPITHELIAL LESION OR MALIGNANCY (NIL) (none) 02/20/2018 2:50 PM CDT [facility] IMEN ADEQUACY Satisfactory for evaluation No endocervical component seen 02/20/2018 2:50 PM CDT [facility] HPV REQUEST HPV and PAP 02/20/2018 2:50 PM CDT [facility] Automated Review Successful 02/20/2018 2:50 PM CDT [facility] Comment:Specimen processed s uccessfully by automated cuffing machine operator device, ThinPrep Imaging System, [employer] ANCILLARY TESTING LOG BRANDER HPV Ordered, Please see separate report 02/20/2018 2:50 PM CDT [facility] Note The pap test is a screening technique, not a diagnostic procedure. ??It is used primarily to screen for squamous cancers and precursor lesions. ??Published studies have shown that it is subject to both false negative and false positive results. ??The pap test should not be used as the sole means to diagnose or exclude pre-malignant and malignant lesions. Cytology is screened and interpreted at [facility] - [address], [place] [address] and [facility] - [address]; [place] [address] and [facility] - [address]; [place] [address] and [facility] [address]; [place] [address] 02/20/2018 2:50 PM CDT [facility] Other (Cervical/Vagina l) 02/11/2018 8:30 AM CDT 02/11/2018 6:36 PM CDT Mitul Donato MD PATHOLOGY/CYTOLOGY [facility] [address] [place] [address], * (ABNORMAL) CHOLESTEROL,TOTAL (02/15/2003 9:30 AM CDT) CHOLESTEROL,TOT AL 219(H) 110 - 199 mg/dL 02/15/2003 9:30 AM CDT Narrative 10/21/2003 6:35 AM CDT Ordered by an unspecified provider. Other Clinical Staff CHEMISTRY from Last 3 Months or Most Recently Relevant to Health Maintenance Advance Directives * Full Code (Latest Code Status on File) Date Activated Date Inactivated Comments 07/23/2008 11:00 AM 07/25/2008 3:01 PM * Full Code Date Activated Date Inactivated Comments 07/23/2008 6:30 AM 07/23/2008 11:00 AM Care Teams Publicity Person Relationship Specialty Start Date End Date Mitul Donato MD PCP - General 07/23/08
--- OUTSIDE RECORDS SUMMARY | 2023-10-14 15:17 | XMS_ITS | Clinical Summary ---
Author Organization [facility] Address [address] [place] [address]. [place] [address] Care Team Providers Care Dynamometer Tuner Name Role Phone Rohit Donato MD Primary Care Provider [phone] Allergies Active Allergy Reactions Criticality Noted Date [...] Comments Blood Pressure 118/76 05/30/2020 2:00 PM RADIAL ROUTER OPERATOR Pulse 87 05/30/2020 2:00 PM RADIAL ROUTER OPERATOR Temperature 37.1 ??C (98.8 ??F) 05/30/2020 2:00 PM CS T Respiratory Rate 16 05/30/2020 2:00 PM RADIAL ROUTER OPERATOR Oxygen Saturation 97% 05/30/2020 2:00 PM RADIAL ROUTER OPERATOR Inhaled Oxygen Concentration - - Weight 102.5 kg (226 lb) 05/30/2020 9:00 AM RADIAL ROUTER OPERATOR Height 175.3 cm (5' 9) 05/30/2020 9:00 AM RADIAL ROUTER OPERATOR Body Mass Index 33.37 05/30/2020 9:00 AM RADIAL ROUTER OPERATOR Plan of Treatment Not on file Care Teams Dynamometer Tuner Relationship Specialty Start Date End Date Rohit Donato MD PCP - General Family Medicine 05/30/20
--- OUTSIDE RECORDS SUMMARY | 2023-10-14 15:18 | XMS_ITS | Clinical Summary ---
Author Organization [facility] Address [address] [address] Phone Care Team Providers Care Customs Appraiser Name Role Phone Elsewhere, Pcp Primary Care Provider Unavailabl e Allergies Active Allergy Reactions Criticality Noted Date Comments Celecoxib 01/15/2015 Latex 01/15/2015 Sulfa Drugs 01/15/2015 Medications Medication Sig Dispensed Refills Start Date End Date Status VIT W/ FE BISG-FA OR Take by mouth. Active loratadine (CLARITIN) 10 MG capsule Take 10 mg by mouth one time a day. Take on an empty stomach. Active Olopatadine HCl (PAZEO) 0.7 % Solution Apply to eye. Active traMADol (ULTRAM) 50 MG tablet Take 50 mg by mouth every six hours as needed for Pain. Active bacitracin (BACIGUENT) 500 UNIT/GM ointment Apply topically two times a day. 14 g 0 01/15/2015 Active oxyCODONE-acetamino phen (PERCOCET) 5-325 MG oral tablet Take 1 - 2 pills orally every 4 - 6 hours as needed for pain. Limit acetaminophen to 4000 mg per day from all sources. 20 Tab 0 01/15/2015 Active Social History Tobacco Use Types Packs/Day Years Used Date Smoking Tobacco: Former Alcohol Use Standard Drinks/Week Comments No 0 (1 standard drink = 0.6 oz pur e alcohol) Sex and Gender Information Value Date Recorded Sex Assigned at Not on file Gender Identity Not on file Sexual Orientation Not on file Obstetrics History Last Filed Vital Signs Vital Sign Reading Time Taken Comments Blood Pressure 96/69 01/15/2015 7:09 PM CDT Pulse 92 01/15/2015 7:09 PM CDT Temperature 36.7 ??C (98.1 ??F) 01/15/2015 3:42 PM CD T Respiratory Rate 18 01/15/2015 7:09 PM CDT Oxygen Saturation 98% 01/15/2015 7:09 PM CDT Inhaled Oxygen Concentration - - Weight 86.2 kg (190 lb) 01/15/2015 3:42 PM CDT Height 177.8 cm (5' 10) 01/15/2015 3:42 PM CDT Body Mass Index 27.26 01/15/2015 3:42 PM CDT Plan of Treatment Not on file Care Teams Customs Appraiser Relationship Specialty Start Date End Date Elsewhere, Pcp PCP - General 01/15/15
--- NOTE | 2023-10-14 15:20 | CRLHL7_ITS ---
For Patients: As a result of the Century Cures Act, medical imaging exams and procedure reports are released immediately into your electronic medical record. You may view this report before your referring provider. If you have questions, please contact your health care provider. BILATERAL SCREENING MAMMOGRAM WITH COMPUTER-AIDED DETECTION AND TOMOSYNTHESIS TECHNIQUE: CC and MLO views were obtained. These mammographic images have been obtained using full-field digital technique. These mammographic images were interpreted with the benefit of computer-aided detection. Breast Tomosynthesis was used in this interpretation. COMPARISON FILM: 10/09/22, 09/14/21, 09/02/20. FINDINGS: There are scattered areas of fibroglandular density. IMPRESSION: There is no radiographic evidence for malignancy. ASSESSMENT: BI-RADS Category 1: Negative RECOMMENDATION: Routine screening mammogram in 1 year. A lay language report of this examination will be provided to the patient. Akil Corbett M.D. Diagnostic Radiologist [email or web address] SP/Dictated by: Akil Corbett MD @ 10/15/2023 9:06:00 AM (Electronically Signed)
== END 2023-10-14 15:15 | disposition home or self-care (01) ==
LOC: MAMMO 15:16
PROVIDERS: PCP Family Medicine; Visit Provider Family Medicine
DX: Z12.31 Encounter for screening mammogram for malignant neoplasm of breast (principal)
CPT/HCPCS: 77063; 77067

== ENCOUNTER 2024-07-07 09:52 | Outpatient (CLI) | payer BC, SELFPAY | END 2024-07-07 09:53 | disposition home or self-care (01) | PROVIDERS: PCP Family Medicine; Visit Provider Family Medicine | DX: E66.9 Obesity, unspecified (principal); Z13.1 Encounter for screening for diabetes mellitus; Z13.0 Encounter for screening for diseases of the blood and blood-forming organs and certain disorders involving the immune mechanism; Z13.29 Encounter for screening for other suspected endocrine disorder | CPT/HCPCS: 80048; 84443 ==

== ENCOUNTER 2024-09-10 09:07 | Emergency (ER) | payer BC, SELFPAY ==
--- OUTSIDE RECORDS SUMMARY | 2024-09-10 09:10 | XMS_ITS | Clinical Summary ---
Author Organization [facility] Address [address] [place] [id number] Care Team Providers Care Factory Maintenance Manager Name Role Phone Rohit Donato MD Primary Care Provider [phone] Allergies Active Allergy Reactions Criticality Noted Date Comments Celecoxib 05/26/2020 Lansoprazole 05/27/2020 Latex 05/26/2020 Swelling, lip itchiness Sulfa Antibiotics 05/26/2020 Medications prochlorperazine (COMPAZINE) 5 MG tablet Take 5 mg by mouth every 4 hours as needed for nausea or vomiting Active amphetamine-dextr oamphetamine (ADDERALL XR) 20 MG 24 hr capsule Take 20 mg by mouth daily Active ondansetron (ZOFRAN) 4 MG tablet Take 4 mg by mouth every 6 hours as needed for nausea Active oxyCODONE-acetami nophen (PERCOCET) 5-325 MG tablet Take 1-2 tablets [...] 10 mg by mouth At Bedtime Active glucosamine-chond roitin 500-400 MG CAPS per capsule Take 1 capsule by mouth daily Active Flaxseed, Linseed, (FLAXSEED OIL PO) Ac tive magnesium oxide 400 MG CAPS Take 1 [...] Take 1 tablet by mouth daily Active Encounters Date Type Department Care Team Description 08/07/2024 11:20 AM CDT Ancillary Procedure [address] [address] Family history of cardiovascular disease; Diabetes (H); High blood pressure; Overweight 08/07/2024 Travel from Last 3 Months Social History Tobacco Use Types Packs/Day Years Used Date Smoking Tobacco: Never Smokeless Tobacco: Never Alcohol Use Standard Drinks/Week Comments Yes 0 (1 standard drink = 0.6 oz pur e alcohol) Adolescent Education Answer Date Record ed Getting School Help Needed Not on file 02/02 Comments No Sex and Gender Information Value Date Recorded Sex Assigned at Not on file Legal Sex Female 9:32 AM PRODUCE FIELD MERCHANDISER Gender Identity Not on file Sexual Orientation Not on file Last Filed Vital Signs Vital Sign Reading Time Taken Comments Blood Pressure 118/76 05/30/2020 2:00 PM PRODUCE FIELD MERCHANDISER Pulse 87 05/30/2020 2:00 PM PRODUCE FIELD MERCHANDISER Temperature 37.1 C (98.8 F) 05/30/2020 2:00 PM PRODUCE FIELD MERCHANDISER Respiratory Rate 16 05/30/2020 2:00 PM PRODUCE FIELD MERCHANDISER Oxygen Saturation 97% 05/30/2020 2:00 PM PRODUCE FIELD MERCHANDISER Inhaled Oxygen Concentration - - Weight 102.5 kg (226 lb) 05/30/2020 9:00 AM PRODUCE FIELD MERCHANDISER Height 175.3 cm (5' 9) 05/30/2020 9:00 AM PRODUCE FIELD MERCHANDISER Body Mass Index 33.37 05/30/2020 9:00 AM PRODUCE FIELD MERCHANDISER Plan of Treatment Health Maintenance Due Date Last Done Comments A1C 1977 ADVANCE CARE PLANNING 1977 ANNUAL REVIEW OF HM ORDERS [address] COLONOGRAPHY 1977 DIABETIC FOOT EXAM 1977 EYE EXAM 1977 FIT 1977 FLEX SIG 1977 LIPID 1977 MAMMO SCREENING 1977 MICROALBUMIN 1977 sDNA (Cologuard) 1977 YEARLY PREVENTIVE VISIT 1980 COLONOSCOPY 1987 COLORECTAL CANCER SCREENING 1987 HIV SCREENING 1992 HEPATITIS C SCREENING 1995 Pneumococcal Vaccine: Pediatrics (0 to 5 Years) and At-Risk Patients (6 to 49 Years) (1 of 2 - PCV) 1996 HEPATITIS B IMMUNIZATION (3 of 3 - 19+ 3-dose series) 01/14/2004 10/24/2003, 09/15/2003, 07/14/2003 PAP 02/11/2021 02/11/2018 COVID-19 Vaccine ( - 2023- season) 2024 PHQ-2 (once per calendar year) 2024 INFLUENZA VACCINE (Season Ended) 2025 04/04/2018, 04/30/2014, 02/04/2013, Additional history exists ZOSTER IMMUNIZATION (1 of 2) 2027 DTAP/TDAP/TD IMMUNIZATION (9 - Td or Tdap) 11/07/2032 11/07/2022, 03/12/2013, 07/25/2007, Additional history exists MENINGITIS IMMUNIZATION Aged Out 10/24/2003, 06/02 No longer eligible based on patient's age to complete this topic HPV IMMUNIZATION Aged Out No longer e ligible based on patient's age to complete this topic Procedures Procedure Name Priority Date/Time Associated Diagnosis Comments CT CALCIUM SCREENING Routine 08/07/2024 11:36 AM CDT Family history of cardiovascular disease Diabetes (H) High blood pressure Overweight RADIOLOGIST CONSULT FOR CARDIOLOGY Routine 08/07/2024 11:36 AM CDT Family history of cardiovascular disease Diabetes (H) High blood pressure Overweight from Last 3 Months Results * Radiologist Consult For Cardiology (08/07/2024 11:36 AM CDT) Anatomical Region Laterality Modality Computed Tomogra phy Impressions 08/07/2024 11:39 AM CDT IMPRESSION: Granuloma right lung. Please review separate enterprise business architect report for further detail. GEOVANNY TOUSSAINT MD Narrative 08/07/2024 11:39 AM CDT Radiologist consult for cardiology INDICATION: Family history cardiovascular disease. Diabetes. High blood pressure. Overweight. COMPARISON: None FINDINGS: Noncontrasted calcium score performed. Jewelry Sales Associate shows surgical hardware in the cervical spine otherwise unremarkable. No dominant coronary calcified plaques. Mild degenerative changes in the thoracic spine. Detail of the included portion of the lungs shows punctate calcified right upper lobe granuloma. Procedure Note Geovanny Toussaint MD - 08/07/2024 Radiologist consult for cardiology INDICATION: Family history cardiovascular disease. Diabetes. High blood pressure. Overweight. COMPARISON: None FINDINGS: Noncontrasted calcium score performed. Jewelry Sales Associate shows surgical hardware in the cervical spine otherwise unremarkable. No dominant coronary calcified plaques. Mild degenerative changes in the thoracic spine. Detail of the included portion of the lungs shows punctate calcified right upper lobe granuloma. IMPRESSION: Granuloma right lung. Please review separate enterprise business architect report for further detail. GEOVANNY TOUSSAINT MD us Referred Self MD [facility] ORDERABL ES Final Result * CT Calcium Screening (08/07/2024 11:36 AM CDT) Anatomical Region Laterality Modality Chest, UMP CT CTA Computed Tomog terrance Narrative 08/07/2024 12:35 PM CDT Procedure: CT CALCIUM SCREENING Examination Date: 08/07/2024 11:36 AM Clinical Information: Family history of cardiovascular disease; Diabetes (H); High blood pressure; Overweight Indication: Screening for coronary artery disease Ordering Provider: REFERRED SELF Quality of the study: Good PROCEDURE: High-resolution, ECG synchronized multi-slice computed tomography was performed with a Siemens Somatom Sensation 64-slice scanner without incident. Coronary calcification was analyzed using Reds10 calcium scoring software. Scan protocol was optimized to minimize radiation exposure. The total radiation exposure was calculated to be 126 DLP and 1.76 mSv. IMPRESSIONS: 1. No coronary calcifications. 2. The total Agatston calcium score is 0 placing the patient in the lowest percentile when compared to age and gender matched control group. 3. Recommend aggressive risk factor modification. 4. Please review Radiology report for incidental noncardiac findings that will follow separately. FINDINGS: CORONARY ARTERY CALCIUM SCORES: Total calcium score: 0 Left main coronary artery: 0 Left anterior descending coronary artery: 0 Circumflex coronary artery: 0 Right coronary artery: 0 BACKGROUND A coronary artery calcium (CAC) score is a measurement of the amount of calcium (hard plaque) in the severino of the arteries that supply the heart muscle. Numerous studies have indicated that this test is a reliable measure of risk for adverse cardiovascular events, such as heart attack and stroke. MANAGEMENT The English Heart Association/English College of Cardiology (AHA/ACC) 2018 Guideline on the Management of Blood Cholesterol states: If CAC is zero, treatment with statin therapy may be withheld or delayed, except in certain very high risk individuals such as cigarette smokers, those with diabetes mellitus, and those with a strong family history of premature atherosclerotic disease. A CAC score of 1 to 99 favors statin therapy, especially in those 55 years of age or older. For any patient, if the CAC score is greater than or equal to 100 Agatston units or greater than or equal to 75th percentile, statin therapy is indicated unless otherwise deferred by the outcome of clinician-patient risk discussion. The Society of Cardiovascular CT (SCCT) CAC guideline recommends the following: CAC score 0: statin generally not recommended CAC score 1-99: moderate intensity statin generally recommended CAC score 100-299: moderate to high intensity statin + Aspirin 81mg CAC score >300: high intensity statin + Aspirin 81mg GENERAL RECOMMENDATIONS Adoption and maintenance of a healthy lifestyle is recommended for all people. This should include regular, appropriate exercise and observance of a proper diet, to ensure balanced nutrition and weight control. Tobacco use should be avoided. Cholesterol has been linked to coronary atherosclerosis, and we strongly encourage adhering to the recommendations of the 2018 ACC/AHA guidelines on the Management of Blood Cholesterol. For primary prevention, these include calculation of 10-year ASCVD risk and initiation of statin therapy based on estimated ASCVD risk and LDL cholesterol. The ELIAS risk score, which combines traditional risk factors and CAC, is available online on the ELIAS website (https://www.elias-nhlbi.org/MESACHDRisk/MesaRiskScore/RiskScore.aspx). (Samantha HAGER, et al. J Am Radha Cardiol. 2015 Feb 22;66(15):1643-53.) However note that these are general recommendations only, and as with all such matters, the personal physician should be consulted regarding recommendations appropriate for the individual. If further guidance is needed, you can schedule an appointment with one of our Preventive Cardiologists ([email or web address]). References: 1. 2018 AHA/ACC/AACVPR/AAPA/ABC/ACPM/ADA/AGS/APhA/ASPC/NLA/PCNA Guideline on the Management of Blood Cholesterol 2. CAC-DRS: Coronary Artery Calcium Data and Reporting System. An expert consensus document of the Society of Cardiovascular Computed Tomography (SCCT) 3. fabrice Gutierrez al. J Am Radha Cardiol. 2021September 26;79(19):1869-3127; associated calculator at https://www.cac-tools.com (used for calculation of calcium score percentiles in patients ages 30-45) ARABELLA ALMEIDA MD Procedure Note Arabella Almeida MD - 08/07/2024 Procedure: CT CALCIUM SCREENING Examination Date: 08/07/2024 11:36 AM Clinical Information: Family history of cardiovascular disease; Diabetes (H); High blood pressure; Overweight Indication: Screening for coronary artery disease Ordering Provider: REFERRED SELF Quality of the study: Good PROCEDURE: High-resolution, ECG synchronized multi-slice computed tomography was performed with a Siemens Somatom Sensation 64-slice scanner without incident. Coronary calcification was analyzed using Reds10 calcium scoring software. Scan protocol was optimized to minimize radiation exposure. The total radiation exposure was calculated to be 126 DLP and 1.76 mSv. IMPRESSIONS: 1. No coronary calcifications. 2. The total Agatston calcium score is 0 placing the patient in the lowest percentile when compared to age and gender matched control group. 3. Recommend aggressive risk factor modification. 4. Please review Radiology report for incidental noncardiac findings that will follow separately. FINDINGS: CORONARY ARTERY CALCIUM SCORES: Total calcium score: 0 Left main coronary artery: 0 Left anterior descending coronary artery: 0 Circumflex coronary artery: 0 Right coronary artery: 0 BACKGROUND A coronary artery calcium (CAC) score is a measurement of the amount of calcium (hard plaque) in the severino of the arteries that supply the heart muscle. Numerous studies have indicated that this test is a reliable measure of risk for adverse cardiovascular events, such as heart attack and stroke. MANAGEMENT The English Heart Association/English College of Cardiology (AHA/ACC) 2018 Guideline on the Management of Blood Cholesterol states: If CAC is zero, treatment with statin therapy may be withheld or delayed, except in certain very high risk individuals such as cigarette smokers, those with diabetes mellitus, and those with a strong family history of premature atherosclerotic disease. A CAC score of 1 to 99 favors statin therapy, especially in those 55 years of age or older. For any patient, if the CAC score is greater than or equal to 100 Agatston units or greater than or equal to 75th percentile, statin therapy is indicated unless otherwise deferred by the outcome of clinician-patient risk discussion. The Society of Cardiovascular CT (SCCT) CAC guideline recommends the following: CAC score 0: statin generally not recommended CAC score 1-99: moderate intensity statin generally recommended CAC score 100-299: moderate to high intensity statin + Aspirin 81mg CAC score >300: high intensity statin + Aspirin 81mg GENERAL RECOMMENDATIONS Adoption and maintenance of a healthy lifestyle is recommended for all people. This should include regular, appropriate exercise and observance of a proper diet, to ensure balanced nutrition and weight control. Tobacco use should be avoided. Cholesterol has been linked to coronary atherosclerosis, and we strongly encourage adhering to the recommendations of the 2018 ACC/AHA guidelines on the Management of Blood Cholesterol. For primary prevention, these include calculation of 10-year ASCVD risk and initiation of statin therapy based on estimated ASCVD risk and LDL cholesterol. The ELIAS risk score, which combines traditional risk factors and CAC, is available online on the ELIAS website (https://www.elias-nhlbi.org/MESACHDRisk/MesaRiskScore/RiskScore.aspx). (Samantha HAGER, et al. J Am Radha Cardiol. 2015 Feb 13;66(15):1643-53.) However note that these are general recommendations only, and as with all such matters, the personal physician should be consulted regarding recommendations appropriate for the individual. If further guidance is needed, you can schedule an appointment with one of our Preventive Cardiologists ([email or web address]). References: 1. 2018 AHA/ACC/AACVPR/AAPA/ABC/ACPM/ADA/AGS/APhA/ASPC/NLA/PCNA Guideline on the Management of Blood Cholesterol 2. CAC-DRS: Coronary Artery Calcium Data and Reporting System. An expert consensus document of the Society of Cardiovascular Computed Tomography (SCCT) 3. Johnny Lucero, et al. J Am Radha Cardiol. 2021September 26;79(19):9428-6048; associated calculator at https://www.cac-tools.com (used for calculation of calcium score percentiles in patients ages 30-45) ARABELLA ALMEIDA MD us Referred Self IMRhonda CT ORDERABLES Final Result from Last 3 Months Insurance [employer] Care Teams Factory Maintenance Manager Relationship Specialty Start Date End Date Rohit Donato MD PCP - General Family Medicine 05/30/20
--- OUTSIDE RECORDS SUMMARY | 2024-09-10 09:10 | XMS_ITS | Clinical Summary ---
Author Organization [employer] [facility] Address [address] [place] [address] Care Team Providers Care Radio Installer Automobile Name Role Phone Mitul Donato MD Primary Care Provider Allergies Active Allergy Reactions Criticality Noted Date Comments Celecoxib Edema 04/29/2008 Lansoprazole 07/22/2008 Latex Dermatitis Omeprazole Hives 02/19/2008 Sulfa (Sulfonamide Antibiotics) Medications DME Adjustable monitor stand for work computer. Use daily to help with posture to protect neck. 1 Each 0 0 Active Dfxdxvsg-Vk-Qca- Fe-FA ( VITAMIN) Tab tablet Take 1 tablet by mouth once daily. 0 0 Active COSENTYX PEN, 2 PENS, 150 mg/mL pnij 0 9 Active Phentermine HCl 37.5 mg capsule TK 1 C PO ONCE D 2 9 Active dextroamphetamin e-amphetamine (ADDERALL) 20 mg tablet TK 1 T PO D 0 9 Active montelukast (SINGULAIR) 10 mg tablet TK 1 T PO HS 5 9 Active olopatadine (PAZEO) 0.7 % ophthalmic solution Place into the eye(s). Active cyclobenzaprine (FLEXERIL) 10 mg tabletIndication s:S/P cervical spinal fusion,Cervical myofascial pain syndrome,Cervica l radiculitis Take 1 tablet by mouth 3 times daily if needed for Muscle Spasm. 36 tablet 2 9 Active methylPREDNISolo ne (MEDROL, ELEANOR,) 4 mg tabletIndication s:Cervical radiculitis Take by mouth as instructed per packaging. 1 Package 9 Active Active Problems Problem Noted Date Diagnosed [...] 03/19/2012 03/04/2014 Narcotic Contract on File 05/19/2008 Overview (05/19/2008): Oxycontin 20 three times daily, and percocet 7.5/ 5 a day breakthrough pain. Backache, unspecified 07/22/20062013 Cervicalgia 07/22/2006 03/04/2014 Overview (07/22/2006): W/C DOI 07/13/06 Immunizations Immunization Administration Dates Next Due DTaP 07/01/1982, 9,07/11/1978,1977 ,1977 HepA-HepB (Twinrix) 10/24/2003 Hepatitis A, Unspecified 12/20/2001 Hepatitis B (Adult) 09/15/2003,07/14/2003 Influenza Virus, Unspecified 01/31/2009,10/21/18 98,06/02/1996 Influenza, IIV3 (Age 6-35 mos) 4,02/04/2013,03/24/2012,03/23/2011 ,02/14/2010 Influenza, IIV3 (Age >=3 years) 02/24/2008 MMR 06/02/1996,08/31/1994,07/11/1978 Meningococcal Vaccine (Menomune) 10/24/2003,05/14 Polio Virus, Unspecified 06/02/1996,05/1982,01/11/1979,07/11/1978 ,1977 Td (Age >=7 Years) 10/08/1995 Tdap [...] Answer Date Recorded PHQ-2 Score 0 12/18/2018 Comments No Sex and Gender Information Value Date Recorded Sex Assigned at Not on file Legal Sex Female 6:31 AM HOG DROPPER Gender Identity Not on file Sexual Orientation Not on file Obstetrics History Last Filed Vital Signs Vital Sign Reading Time Taken Comments Blood Pressure 110/70 12/18/2018 10:35 AM CDT Pulse 80 12/18/2018 10:35 AM CDT Temperature 36.7 C (98.1 F) 04/26/2017 9:53 AM HOG DROPPER Respiratory Rate 16 12/18/2018 10:35 AM CDT Oxygen Saturation 100% 04/26/2017 9:53 AM HOG DROPPER Inhaled Oxygen Concentration - - Weight 103.9 [...] 02/16/20 03 Mammogram for age 45-75 2022 Tetanus booster 03/12/2023 03/12/2013, 06/14 (Completed outside of [facility]), 07/25/2007, Additional history exists COVID-19 vaccine series ( season) 2024 Influenza Vaccine (Season Ended) 2025 04/30/2014, 02/04/2013, 03/24/2012, Additional history exists Tdap Completed 03/12/2013, 07/25/2007 Pneumococcal series for age 6-49 Aged Out No longer eligible based on patient's age to complete this topic Medical Devices Implanted Type Area Recreation Instructor Device Identifier Shelf Expiration Date Model / Serial / Lot Plate Cerv Ant 42.5mm Atlantisvision 976-142 - [id number] Implanted:Qty: 1 on 07/23/2008 at [facility] Spine Implants Spine SOFAMOR DANEK 976-142# / / [id number] spacer Colton/Canclls 7mm A Lordotic Acf Fd [id number] [[id number]] Implanted:Qty: 1 on 07/23/2008 at [facility] Explanted:at [facility] (Quantity not on file) Spine Musculoskeletal Transplant 06/17/2011 [id number]# / [id number] / [id number] tty Progenix Dbm 1cc [[id number]] Implanted:Qty: 1 on 07/23/2008 at [facility] Explanted:at [facility] (Quantity not on file) Spine Medtronic 03/17/2010 [id number]# / [id number] / Screw Fix 4.0x14 Self Drill - [id number] Implanted:Qty: 6 on 07/23/2008 at [facility] Spine SOFAMOR ANDRAE 976-384# / / Spacer Colton/Canclls 7mm A Lordotic Acf Fd [id number] - [id number] Implanted:Qty: 1 on 07/23/2008 at [facility] Explanted:at [facility] (Quantity not on file) Spine Musculoskeletal Transplant 05/01/2011 [id number]# / [id number] / Procedures Procedure Name Priority Date/Time Associated Diagnosis Comments BLANKBOOK STITCHING MACHINE OPERATOR THIN PREP PAP SCREEN IMAGED Routine 02/11/2018 8:30 AM CDT CHOLESTEROL,TOTAL Routine 02/15/2003 9:3 0 AM CDT from Last 3 Months or Most Recently Relevant to Health Maintenance Results * BLANKBOOK STITCHING MACHINE OPERATOR THIN PREP PAP SCREEN IMAGED (02/11/2018 8:30 AM CDT) Case Report Gynecologic Cytology Report Case: [id number] Authorizing Provider: Mitul Donato Collected: 02/11/2018 0830 First Screen: Mendy rAellano Received: 02/11/2018 1836 Specimen: BLANKBOOK STITCHING MACHINE OPERATOR ThinPrep Vial Screening, Cervical/Vaginal 02/20/2018 2:50 PM CDT [facility] INTERPRETATION/ RESULT NEGATIVE FOR INTRAEPITHELIAL LESION OR MALIGNANCY (NIL) (none) 02/20/2018 2:50 PM CDT [facility] at 1450 CDT SPECIMEN ADEQUACY Satisfactory for evaluation No endocervical component seen 02/20/2018 2:50 PM CDT [facility] HPV REQUEST HPV and PAP 02/20/2018 2:50 PM CDT [facility] Automated Review Successful 02/20/2018 2:50 PM CDT [facility] Comment:Specimen processed s uccessfully by automated piece cutter device, ThinPrep Imaging System, [employer] ANCILLARY TESTING BLANKBOOK STITCHING MACHINE OPERATOR HPV Ordered, Please see separate report 02/20/2018 2:50 PM CDT [facility] Note The pap test is a screening technique, not a diagnostic procedure. It is used primarily to screen for squamous cancers and precursor lesions. Published studies have shown that it is subject to both false negative and false positive results. The pap test should not be used as the sole means to diagnose or exclude pre-malignant and malignant lesions. Cytology is screened and interpreted at [facility] - [address], [place] [address] and [facility] - [address]; [place] [address] and [facility] - [address]; [place] [address] and [facility] [address]; [place] [address] 02/20/2018 2:50 PM CDT [facility] Other (Cervical/Vagina l) 02/11/2018 8:30 AM CDT 02/11/2018 6:36 PM CDT Mitul Donato MD PATHOLOGY/CYTOLOGY Final Re sult [facility] [address] [place] [address], * (ABNORMAL) CHOLESTEROL,TOTAL (02/15/2003 9:30 AM CDT) CHOLESTEROL,TOT AL 219(H) 110 - 199 mg/dL 02/15/2003 9:30 AM CDT Narrative 10/21/2003 6:35 AM CDT Ordered by an unspecified provider. Other Clinical Staff CHEMISTRY Final Resul t from Last 3 Months or Most Recently Relevant to Health Maintenance Insurance [facility] Advance Directives * Full Code (Latest Code Status on File) Date Activated Date Inactivated Comments 07/23/2008 11:00 AM 07/25/2008 3:01 PM * Full Code Date Activated Date Inactivated Comments 07/23/2008 6:30 AM 07/23/2008 11:00 AM Care Teams Radio Installer Automobile Relationship Specialty Start Date End Date Mitul Donato MD PCP - General 07/23/08
--- OUTSIDE RECORDS SUMMARY | 2024-09-10 09:10 | XMS_ITS | Clinical Summary ---
Author Organization [facility] Address [address] [address] Phone Care Team Providers Care Lpn Or Medical Assistant Name Role Phone Elsewhere, Pcp Primary Care Provider Unavailabl e Allergies Active Allergy Reactions Criticality Noted Date Comments Celecoxib 01/15/2015 Latex 01/15/2015 Sulfa Drugs 01/15/2015 Medications VIT W/ FE BISG-FA OR Take by mouth. Activ e loratadine (CLARITIN) 10 MG capsule Take 10 mg by mouth one time a day. Take on an empty stomach. Active Olopatadine HCl (PAZEO) 0.7 % Solution Apply to eye. A ctive traMADol (ULTRAM) 50 MG tablet Take 50 mg by mouth every six hours as needed for Pain. Active bacitracin (BACIGUENT) 500 UNIT/GM ointment Apply topically two times a day. 14 g 0 5 Active oxyCODONE-acet aminophen (PERCOCET) 5-325 MG oral tablet Take 1 - 2 pills orally every 4 - 6 hours as needed for pain. Limit acetaminophen to 4000 mg per day from all sources. 20 Tab 0 5 Active Social History Tobacco Use Types Packs/Day Years Used Date Smoking Tobacco: Former Alcohol Use Standard Drinks/Week Comments No 0 (1 standard drink = 0.6 oz pur e alcohol) Comments No Sex and Gender Information Value Date Recorded Sex Assigned at Not on file Legal Sex Female 3:31 PM CDT Gender Identity Not on file Sexual Orientation Not on file Obstetrics History Last Filed Vital Signs Vital Sign Reading Time Taken Comments Blood Pressure 96/69 01/15/2015 7:09 PM CDT Pulse 92 01/15/2015 7:09 PM CDT Temperature 36.7 C (98.1 F) 01/15/2015 3:42 PM CDT Respiratory Rate 18 01/15/2015 7:09 PM CDT Oxygen Saturation 98% 01/15/2015 7:09 PM CDT Inhaled Oxygen Concentration - - Weight 86.2 kg (190 lb) 01/15/2015 3:42 PM CDT Height 177.8 cm (5' 10) 01/15/2015 3:42 PM CDT Body Mass Index 27.26 01/15/2015 3:42 PM CDT Plan of Treatment Not on file Insurance [employer] [id number] Care Teams Lpn Or Medical Assistant Relationship Specialty Start Date End Date Elsewhere, Pcp PCP - General 01/15/15
--- OUTSIDE RECORDS SUMMARY | 2024-09-10 09:10 | XMS_ITS | Encounter Summary ---
Author Organization [facility] Address [address] [place] [address] Care Team Providers Care Product Operations Associate Name Role Phone Rohit Donato MD Primary Care Provider Reason for Visit * Diagnostic Imaging CT Scan (Routine) - Closed Specialty Diagnoses / Procedures Referred By Kat fitzpatrick Referred To Contact Radiology. 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 Gender Identity Not on file Sexual Orientation Not on file documented as of this encounter Plan of Treatment Not on file documented as of this encounter Procedures Procedure Name Priority Date/Time Associated Diagnosis Comments RADIOLOGIST CONSULT FOR CARDIOLOGY Routine 08/07/2024 11:36 AM CDT Family history of cardiovascular disease Diabetes (H) High blood pressure Overweight CT CALCIUM SCREENING Routine 08/07/2024 11:36 AM CDT Family history of cardiovascular disease Diabetes (H) High blood pressure Overweight documented in this encounter Results * Radiologist Consult For Cardiology (08/07/2024 11:36 AM CDT) Anatomical Region Laterality Modality Computed Tomogra phy Impressions 08/07/2024 11:39 AM CDT IMPRESSION: Granuloma right lung. Please review separate wind projects supervisor report for further detail. GEOVANNY TOUSSAINT MD Narrative 08/07/2024 11:39 AM CDT Radiologist consult for cardiology INDICATION: Family history cardiovascular disease. Diabetes. High blood pressure. Overweight. COMPARISON: None FINDINGS: Noncontrasted calcium score performed. Client Success Director shows surgical hardware in the cervical spine [...] COMPARISON: None FINDINGS: Noncontrasted calcium score performed. Client Success Director shows surgical hardware in the cervical spine otherwise unremarkable. No dominant coronary calcified plaques. Mild degenerative changes in the thoracic spine. Detail of the included portion of the lungs shows punctate calcified right upper lobe granuloma. IMPRESSION: Granuloma right lung. Please review separate wind projects supervisor report for further detail. GEOVANNY TOUSSAINT MD [...] without incident. Coronary calcification was analyzed using Clipcopia calcium scoring software. Scan protocol was optimized [...] as heart attack and stroke. MANAGEMENT The [place] Heart Association/[place] College of Cardiology (AHA/ACC) 2018 Guideline on [...] appointment with one of our Preventive Cardiologists ([email or web address]). References: 1. 2018 AHA/ACC/AACVPR/AAPA/ABC/ACPM/ADA/AGS/APhA/ASPC/NLA/PCNA Guideline on the Management of Blood Cholesterol 2. CAC-DRS: Coronary Artery Calcium Data and Reporting System. An expert consensus document of the Society of Cardiovascular Computed Tomography (SCCT) 3. Johnny Lucero et al. J Am Radha Cardiol. 2021September 26;79(19):0291-4548; associated calculator at https://www.cac-tools.com (used for calculation [...] without incident. Coronary calcification was analyzed using Clipcopia calcium scoring software. Scan protocol was optimized [...] as heart attack and stroke. MANAGEMENT The [place] Heart Association/[place] College of Cardiology (AHA/ACC) 2018 Guideline on [...] appointment with one of our Preventive Cardiologists ([email or web address]). References: 1. 2018 AHA/ACC/AACVPR/AAPA/ABC/ACPM/ADA/AGS/APhA/ASPC/NLA/PCNA Guideline on the Management of Blood Cholesterol 2. CAC-DRS: Coronary Artery Calcium Data and Reporting System. An expert consensus document of the Society of Cardiovascular Computed Tomography (SCCT) 3. Johnny Lucero et al. J Am Radha Cardiol. 2021September 26;79(19):2814-9709; associated calculator at https://www.cac-tools.com (used for calculation of calcium score percentiles in patients ages 30-45) ARABELLA ALMEIDA MD us Referred Self MD JACOBS CT ORDERABLES Final Result documented in this encounter Visit Diagnoses Diagnosis Family history of cardiovascular disease Family history of other cardiovascular diseases Diabetes (H) High blood pressure Unspecified essential hypertension Overweight documented in this encounter Care Teams Product Operations Associate Relationship Specialty Start Date End Date Rohit Donato MD PCP - General Family Medicine 05/30/20 documented as of this encounter
--- OUTSIDE RECORDS SUMMARY | 2024-09-10 09:10 | XMS_ITS | Encounter Summary ---
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
--- OUTSIDE RECORDS SUMMARY | 2024-09-10 09:10 | XMS_ITS | Data Portability ---
Author Organization [place] [facility] [place], [facility] Address [address] [place] [address] Assessment No assessment recorded. Plan of Treatment Reminders Order Date Submit Date Provider Last Modified By Organization Details Last Modified Time Details Appointments None recorded. Lab urinalysis , dipstick 2020 021 [email or web address] [facility], [facility], [address], [place], [address], 1 11:07:06 urinalysis , dipstick 2019 020 [email or web address] [facility], [facility], [address], [place], [address], 0 12:33:53 Referral None recorded. Procedures None recorded. Surgeries None recorded. Imaging None recorded. Medication Orders None recorded. Patient TargetsNo targets recorded. Patient Instructions Encounter Date Encounter Id Patient Instructions Last Modified By Organization Details Last Modified Time 04/26/2020 [id number] will get KUB don e today and call later with report. start tamsulosin JIN. [email or web address] Not available 04/26/2020 12:57:04 06/30/2020 [id number] doing well after ESWL with negative KUB. will send stone fragments for analysis and call with report. [email or web address] Not available 06/30/2020 11:14:51 Reason for Referral None Reported. Results Created Date Observation Date Name Description Value Unit Range Abnormal Flag Note LastModifiedBy Organization Detail LastModifiedTime 06/30/19 21 06/30/2020 urina lysis , dipst ick pH-Status 7.0 Not Available [facility] [address], [place], [address], 06/30/2020 10:59:40 04/26/20 20 04/26/2020 urina lysis , dipst ick pH-Status 5.5 Not Available [facility] [address], [place], [address], 04/26/2020 12:33:22 04/26/20 20 04/26/2020 urina lysis , dipst ick Blood-Status Modera te Not Available [facility] [address], [place], [address], 04/26/2020 12:33:22 06/30/19 21 07/11/2020 stone donte sis panel source Commen t Not provi ded Not Available [facility] ([facility]) [address], [place], [address], 07/11/2020 21:06:38 06/30/19 21 07/11/2020 stone donte sis panel color Brown Not Available [facility] ([facility]) [address], [place], [address], 07/11/2020 21:06:38 06/30/19 21 07/11/2020 stone donte sis panel size 2x2 mm Multi ple piece s recei manav. Dimen sions of the large st piece repor minh. Not Available [facility] ([facility]) [address], [place], [address], 07/11/2020 21:06:38 06/30/19 21 07/11/2020 stone donte sis panel weight 41 mg Not Available [facility] ([facility]) [address], [place], [address], 07/11/2020 21:06:38 06/30/19 21 07/11/2020 stone donte sis panel composition Commen t Perce ntage (Repr esent s the % compo sitio n) Not Available [facility] ([facility]) [address] [place], [address], 07/11/2020 21:06:38 06/30/19 21 07/11/2020 stone donte sis panel calcium oxalate monohydrate 70 % Not Available [facility] ([facility]) [address] [place], [address], 07/11/2020 21:06:38 06/30/19 21 07/11/2020 stone donte sis panel calcium oxalate dihydrate 10 % Not Available [facility] ([facility]) [address] [place], [address], 07/11/2020 21:06:38 06/30/19 21 07/11/2020 stone donte sis panel hydroxyapati te 20 % Not Available [facility] ([facility]) [address] [place], [address], 07/11/2020 21:06:38 06/30/19 21 07/11/2020 stone donte sis panel carbonate apatite MULTI LINE CLAIMS ADJUSTER Not Available [facility] ([facility]) [address] [place], [address], 07/11/2020 21:06:38 06/30/19 21 07/11/2020 stone donte sis panel cahpo4 (brushite) MULTI LINE CLAIMS ADJUSTER Not Available [facility] ([facility]) [address] [place], [address], 07/11/2020 21:06:38 06/30/19 21 07/11/2020 stone donte sis panel calcium phosphate MULTI LINE CLAIMS ADJUSTER Not Available [facility] ([facility]) [address] [place], [address], 07/11/2020 21:06:38 06/30/19 21 07/11/2020 stone donte sis panel calcium carbonate MULTI LINE CLAIMS ADJUSTER Not Available [facility] ([facility]) [address] [place], [address], 07/11/2020 21:06:38 06/30/19 21 07/11/2020 stone donte sis panel mg nh4 PO4 (struvite) MULTI LINE CLAIMS ADJUSTER Not Available [facility] ([facility]) [address] [place], [address], 07/11/2020 21:06:38 06/30/19 21 07/11/2020 stone donte sis panel mghpo4 (newberyite) MULTI LINE CLAIMS ADJUSTER Not Available [facility] ([facility]) [address] [place], [address], 07/11/2020 21:06:38 06/30/19 21 07/11/2020 stone donte sis panel uric acid MULTI LINE CLAIMS ADJUSTER Not Available [facility] ([facility]) [address] [place], [address], 07/11/2020 21:06:38 06/30/19 21 07/11/2020 stone donte sis panel uric acid dihydrate MULTI LINE CLAIMS ADJUSTER Not Available [facility] ([facility]) [address] [place], [address], 07/11/2020 21:06:38 06/30/19 21 07/11/2020 stone donte sis panel ammonium acid urate MULTI LINE CLAIMS ADJUSTER Not Available [facility] ([facility]) [address] [place], [address], 07/11/2020 21:06:38 06/30/19 21 07/11/2020 stone donte sis panel sodium acid urate MULTI LINE CLAIMS ADJUSTER Not Available [facility] ([facility]) [address] [place], [address], 07/11/2020 21:06:38 06/30/19 21 07/11/2020 stone donte sis panel 2,8 dihydroxyade nine MULTI LINE CLAIMS ADJUSTER Not Available [facility] ([facility]) [address] [place], [address], 07/11/2020 21:06:38 06/30/19 21 07/11/2020 stone donte sis panel xanthine MULTI LINE CLAIMS ADJUSTER Not Available [facility] ([facility]) [address] [place], [address], 07/11/2020 21:06:38 06/30/19 21 07/11/2020 stone donte sis panel cystine MULTI LINE CLAIMS ADJUSTER Not Available [facility] ([facility]) [address] [place], [address], 07/11/2020 21:06:38 06/30/19 21 07/11/2020 stone donte sis panel cholesterol MULTI LINE CLAIMS ADJUSTER Not Available [facility] ([facility]) [address] [place], [address], 07/11/2020 21:06:38 06/30/19 21 07/11/2020 stone donte sis panel calcium bilirubinate MULTI LINE CLAIMS ADJUSTER Not Available [facility] ([facility]) [address] [place], [address], 07/11/2020 21:06:38 06/30/19 21 07/11/2020 stone donte sis panel bilirubin MULTI LINE CLAIMS ADJUSTER Not Available [facility] ([facility]) [address] [place], [address], 07/11/2020 21:06:38 06/30/19 21 07/11/2020 stone donte sis panel calcium palmitate MULTI LINE CLAIMS ADJUSTER Not Available [facility] ([facility]) [address] [place], [address], 07/11/2020 21:06:38 06/30/19 21 07/11/2020 stone donte sis panel calcium stearate MULTI LINE CLAIMS ADJUSTER Not Available [facility] ([facility]) [address] [place], [address], 07/11/2020 21:06:38 06/30/19 21 07/11/2020 stone donte sis panel triamterene MULTI LINE CLAIMS ADJUSTER Not Available [facility] ([facility]) [address], [place], [address], 07/11/2020 21:06:38 06/30/19 21 07/11/2020 stone donte sis panel drug or metabolite MULTI LINE CLAIMS ADJUSTER Not Available [facility] ([facility]) [address], [place], [address], 07/11/2020 21:06:38 06/30/19 21 07/11/2020 stone donte sis panel dried blood MULTI LINE CLAIMS ADJUSTER Not Available [facility] ([facility]) [address], [place], [address], 07/11/2020 21:06:38 06/30/19 21 07/11/2020 stone donte sis panel cellular material MULTI LINE CLAIMS ADJUSTER Not Available [facility] ([facility]) [address], [place], [address], 07/11/2020 21:06:38 06/30/19 21 07/11/2020 stone donte sis panel other component(s) MULTI LINE CLAIMS ADJUSTER Not Available [facility] ([facility]) [address], [place], [address], 07/11/2020 21:06:38 06/30/19 21 07/11/2020 stone donte sis panel comment MULTI LINE CLAIMS ADJUSTER Not Available [facility] ([facility]) [address], [place], [address], 07/11/2020 21:06:38 06/30/19 21 07/11/2020 stone donte sis panel comment MULTI LINE CLAIMS ADJUSTER Not Available [facility] ([facility]) [address], [place], [address], 07/11/2020 21:06:38 06/30/19 21 07/11/2020 stone donte sis panel photo Commen t Photo graph will follo w under a separ ate cover Not Available [facility] ([facility]) [address] [place], [address], 07/11/2020 21:06:38 06/30/19 21 07/11/2020 stone donte sis panel comment: Prieto fitzpatrick Physi steff quest ions regar ding Calcu li Donte sis conta ct [facility] at: [phone]. Not Available [facility] ([facility]) [address], [place], [address], 07/11/2020 21:06:38 06/30/19 21 07/11/2020 stone donte sis panel please note: Prieto fitzpatrick Calcu li abrahan t will follo w via compu ter, mail or couri cassie villalobos. Not Available [facility] ([facility]) [address], [place], [address], 07/11/2020 21:06:38 06/30/19 21 07/11/2020 stone donte sis panel disclaimer: Prieto fitzpatrick This test was devel oped and its perfo rmanc e hanane cteri stics deter mined by [employer]. It has not been clear ed or appro manav by the Food and Drug Admin istra tion. Not Available [facility] ([facility]) [address], [place], [address], 07/11/2020 21:06:38 06/30/19 21 07/11/2020 stone donte sis panel pdf . Not Available [facility] ([facility]) [address], [place], [address], 07/11/2020 21:06:38 06/30/19 21 06/30/2020 stone donte sis panel source Prieto fitzpatrick Not provi ded Not Available [facility] [address], [place], [address], 07/12/2020 09:07:19 06/30/19 21 06/30/2020 stone donte sis panel color Brown Not Available [facility] [address], [place], [address], 07/12/2020 09:07:19 06/30/19 21 06/30/2020 stone donte sis panel size 2x2 mm Multi ple piece s recei manav. Dimen sions of the large st piece repor minh. Not Available [facility] [address] [facility] [address], [place], [address], 07/12/2020 09:07:19 06/30/19 21 06/30/2020 stone donte sis panel weight 41 mg Not Available [facility] [address], [place], [address], 07/12/2020 09:07:19 06/30/19 21 06/30/2020 stone donte sis panel composition Commen t Perce ntage (Repr esent s the % compo sitio n) Not Available [facility] [address] [facility] [address], [place], [address], 07/12/2020 09:07:19 06/30/19 21 06/30/2020 stone donte sis panel calcium oxalate monohydrate 70 % Not Available [facility] [address] [facility] [address], [place], [address], 07/12/2020 09:07:19 06/30/19 21 06/30/2020 stone donte sis panel calcium oxalate dihydrate 10 % Not Available [facility] [address], [place], [address], 07/12/2020 09:07:19 06/30/19 21 06/30/2020 stone donte sis panel hydroxyapati te 20 % Not Available [facility] [address] [facility] [address], [place], [address], 07/12/2020 09:07:19 06/30/19 21 06/30/2020 stone donte sis panel photo Prieto fitzpatrick Photo graph will follo w under a separ ate cover Not Available [facility] [address] [facility] [address], [place], [address], 07/12/2020 09:07:19 06/30/19 21 06/30/2020 stone donte sis panel comment: Prieto fitzpatrick Physi steff quest ions regar ding Calcu li Donte sis conta ct [facility] at: [phone]. Not Available [facility] [address] [facility] [address], [place], [address], 07/12/2020 09:07:19 06/30/1906/30/2020 stone donte sis panel please note: Prieto fitzpatrick Calcu li repor t will follo w via compu ter, mail or couri er chetan villalobos. Not Available [facility] [address] [facility] [address], [place], [address], 07/12/2020 09:07:19 06/30/1906/30/2020 stone donte sis panel disclaimer: Prieto fitzpatrick This test was devel oped and its perfo rmanc e hanane cteri stics deter mined by [facility]. It has not been clear ed or appro manav by the Food and Drug Admin istra tion. Not Available [facility] [address] [facility] [address], [place], [address], 07/12/2020 09:07:19 06/30/19 21 06/30/2020 stone donte sis panel pdf . Not Available [facility] [address] [facility] [address], [place], [address], 07/12/2020 09:07:19 04/27/20 20 04/26/2020 XR, kidne y + urete r + bladd er No observ ation record ed. [email or web address] [facility] [address], [place], [address], 04/29/2020 15:39:44 05/20/19 21 05/19/2020 XR, kidne y + urete r + bladd er No observ ation record ed. [email or web address] Not Available 2020 10:46:38 07/01/19 21 06/30/2020 XR, kidne y + urete r + bladd er No observ ation record ed. [email or web address] [place], [address], 07/01/2020 11:31:23 Result Notes None recorded. Procedures Surgical History Date Name Laterality Status Provider Name and Address Organization Details Recorded Time 05/30/19 [facility] 15:16:03 [facility] 04/25/2020 16:21:27 tonsillectomy completed [facility] 04/25/2020 16:21:32 [facility] 04/26/2020 12:17:23 [facility] 04/26/2020 12:19:15 [facility] 12:19:32 Imaging Results Imaging Date Name Status LastModified by Organiz ation Details LastModified Time 04/26/2020 XR, kidney + ureter + bladder completed [address] [facility] [place], [address], 04/29/2020 15:39:44 05/19/2020 XR, kidney + ureter + bladder completed [email or web address] Information not available 05/23/2020 10:46:38 06/30/2020 XR, kidney + ureter + bladder completed [address] [place], [address], 07/01/2020 11:31:23 Procedure Notes None recorded. Medical Equipment None Reported. Allergies Allergen ID Allergen Name Allergen Category Reaction Reaction Severity Criticality Documentation Date Start Date Code Code System Note Provider Name and Address Organization Details Recorded Time 606011 Celebrex medicatio n Not available Not available Not available 04/25/2020 17170 7 RxNorm Zhanna Don cassidy, [facility] 0 16:18:24 077788 lansopraz ole medicatio n Not available Not available Not available 04/25/2020 08405 RxNorm Zhanna cassidy, [facility] 0 16:19:01 447691 latex environme nt,medica tion Not available Not available Not available 04/25/2020 17565 91 RxNorm Zhanna Don cassidy, [facility] 0 16:19:08 119539 Prilosec medicatio n Not available Not available Not available 04/25/2020 37957 5 RxNorm Zhanna Julienma khanh, [facility] 0 16:19:17 805004 Substance with sulfonami de structure and antibacte rial mechanism of action (substanc e) medicatio n Not available Not available Not available 04/25/2020 43811 8003 SNOMED Zhanna cassidy, [facility] 0 16:19:23 Medications Name Sig Start Date Stop Date Status Note LastModified by Organization Details LastModified Time cyclobenzap rine 10 mg tablet TK 1 T PO TID PRF MUSCLE SPASM active Not Available Not Available No t Available azithromyci n 250 mg tablet 06/30 completed Not Available Not Available Not Available prochlorper azine maleate 5 mg tablet TAKE 1 TABLET BY MOUTH EVERY 4 TO 6 HOURS NEEDED 06/30 completed Not Available Not Available Not Available doxycycline monohydrate 100 mg tablet TK 1 T PO BID 06/30 completed Not Available Not Available Not Available tramadol 50 mg tablet TAKE 1 TABLET BY MOUTH UP TO THREE TIMES DAILY NEEDED 2020 active Not Available Not Available Not Avai lable oxycodone-a cetaminophe n 5 mg-325 mg tablet TAKE 1 TO 2 TABLETS BY MOUTH EVERY 4 HOURS NEEDED 2020 active Not Available Not Available Not Avai lable tamsulosin 0.4 mg capsule TAKE 1 CAPSULE BY MOUTH DAILY active Not Available Not Available No t Available metronidazo le 0.75 % lotion CATRINA EXT AA BID 06/30 completed Not Available Not Available Not Available cephalexin 500 mg capsule 06/30 completed Not Available Not Available Not Available pantoprazol e 40 mg tablet,millie yed release TAKE 1 TABLET BY MOUTH DAILY active Not Available Not Available No t Available dextroamphe tamine-amph etamine 20 mg tablet TAKE 1 TABLET BY MOUTH DAILY 06/30 completed Not Available Not Available Not Available montelukast 10 mg tablet TAKE 1 TABLET BY MOUTH AT BEDTIME active Not Available Not Available No t Available ondansetron 4 mg disintegrat ing tablet DISSOLVE 1 TABLET ON THE TONGUE EVERY 6 HOURS NEEDED 2020 active Not Available Not Available Not Avai lable Ventolin HFA 90 mcg/actuati on aerosol inhaler INHALE 1- 2 PUFFS PO Q 4 TO 6 H PRF COUGH / SOB 06/30 completed Not Available Not Available Not Available oxycodone 5 mg tablet 06/30 completed Not Available Not Available Not Available magnesium active Not Available Not Samantha ilable Not Available Compazine active Not Available Not Samantha ilable Not Available phentermine 04/26 completed Not Available Not Available Not Available Vitamin D active Not Available Not Samantha ilable Not Available methylpredn isolone 04/26 completed Not Available Not Available Not Available montelukast 06/30 completed Not Available Not Available Not Available cyclobenzap rine 04/26 completed Not Available Not Available Not Available Glucosamine active Not Available Not A vailable Not Available flaxseed active Not Available Not Avai lable Not Available Zyrtec active Not Available Not Availa ble Not Available Protonix 06/30 completed Not Available Not Available Not Available multivitami n active Not Available Not Available Not Available Adderall active Not Available Not Avai lable Not Available Cosentyx active Not Available Not Avai lable Not Available Cosentyx Pen 300 mg/2 pens (150 mg/mL) subcutaneou s pen injector 06/30 completed Not Available Not Available Not Available Pazeo 0.7 % eye drops INSTILL 1 GTT IN OU BID 06/30 completed Not Available Not Available Not Available Vitals Date Recorded Body height Body mass index (BMI) Body weight Provider Name and Address Organization Details Last Updated DateTime 04/26/2020 175.26 cm 34.4 kg/m2 322086.02 g Zhanna Ochoa [facility] 04/26/2020 12:17:16 Date Recorded Body height Body mass index (BMI) Body weight Provider Name and Address Organization Details Last Updated DateTime 06/30/2020 175.26 cm 34 kg/m2 454526.25 kurt [facility] 06/30/2020 11:07:23 Social History Question Answer Notes LastModified by Organizat ion Details LastModified Time Tobacco Smoking Status Former Smoker Quit 2004 Zhannajessica Ochoa [facility] 04/26/2020 12:20:26 What Was The Date Of Your Most Recent Tobacco Screening? 04/26/2020 [email or web address] Information not available 04/26/2020 Sex: Unknown Functional Status None recorded. Mental Status None recorded. Family History Relationship Description Onset Age of this Age Resolved Age Notes LastModified by Organization Details LastModified Time Paternal Grandfather Family history of cardiac disorder [email or web address] Not available 2019 12:20:05 Paternal Grandmother Family history of cardiac disorder [email or web address] Not available 2019 12:20:05 Medical History Condition Response Diabetes N Sexually Transmitted Infection N Other Y Bleeding Disorder N High Blood Pressure N Kidney Stones Y Cancer N Lung Disease N Depression Y High Cholesterol N GERD/Acid Reflux Y Heart Disease N Gynecological History Statement/Question Response Irregular periods N Leaking urine with intercourse N Hormone Therapy N Heavy periods N Pain with intercourse N Sexually Active? Y Obstetrics History GPAL:G 3 P 0 0 1 0 Type Value Spontaneous 1 Total 3 Past Encounters Encounter ID Performer Location Encounter Start Date Encounter Closed Date Diagnosis/Indication Diagnosis SNOMED-CT Code Diagnosis ICD10 Code Diagnosis Note [id number] [facility] [address] [facility],[address] [place] [address] 04/26/2020 12:14:57 05/03/2020 16:59:27 Kidney stone 16398655 N20.0 Ureteric stone 32046313 N20.1 [id number] [facility] [address] [facility] [address] [place] [address] 06/30/2020 10:56:05 07/06/2020 10:04:47 Kidney stone 83712366 N20.0 Health Concerns Section Related Observation LastModified by Organization Detai ls LastModified Time None Recorded Concern Status LastModified by Organization Details LastModified Time None Recorded Advance Directives Directive None Recorded Payers Encounter Date Sequence Insurance Name Policy Number Policy Danielson Covered Member ID Danielson Member ID Guarantor Name 04/26/2020 1 [facility] [id number] Winsome Angulo [id number] Winsome Lepe Kev 06/30/2020 1 [place] [id number] Winsome Angulo [id number] Winsome Angulo Notes Date Note Type Note Provider Name and Address Organization Details Recorded Time 04/26/2020 text/html vist for kidney/ureteral stone. seen [facility] on 04/[address] showing a 5mm ston e left UPJ, 2 tiny stones left kidney. got tamsulosin rx from PCP today. had some pain the next day, not a lot since then, taking IBU around the clock. has not started tamsulosin yet. thinks she has had stone pass before but not caught any. her aunt had stones about a year ago. Andi Keys MD [address] [facility],[address], [place], [address], [facility] 04/26/2020 13:38:45 06/30/2020 text/html 1 month follow u p left ESWL with stone pushback. KUB no residual stone, brings fragm,ents for analysis today. had some discomfort with passage of fragments. doing fine now. Andi Keys MD [address] [facility],[address], [place], [address], [facility] 06/30/2020 11:15:35 OBGyn Episode No OBEpisode recorded.
[2024-09-10 09:13] VITALS: BP 135/96; PULSE 76; RESP 18; TEMP 37.3; O2SAT 97; BMI 35.7
--- NOTE | 2024-09-10 09:40 | CRLHL7_ITS ---
For Patients: As a result of the Century Cures Act, medical imaging exams and procedure reports are released immediately into your electronic medical record. You may view this report before your referring provider. If you have questions, please contact your health care provider. INDICATION: Thunderclap headache with bowel prep. COMPARISON: None. TECHNIQUE: CT of the brain / head without intravenous contrast. Multiplanar axial, coronal, and sagittal reformats were reconstructed. FINDINGS: No intracranial hemorrhage. Normal appearance of the white matter. No acute or subacute cortically based infarct. No mass or mass effect. Normal ventricles. No skull fractures. No worrisome focal bone lesion. IMPRESSION: Normal head CT. Please note that all CT scans at this facility use dose modulation, iterative reconstruction, and/or weight-based dosing when appropriate to reduce radiation dose to as low as reasonably achievable. Dictated by Chelita Curtis MD @ 09/10/2024 10:12:44 AM (Electronically Signed)
--- NOTE | 2024-09-10 09:46 | ED_ITS ---
HPI - General Adult General Chief complaint: Headache/Migraine Stated complaint: bad headache Time Seen by Provider: 09/10/24 09:31 Source: patient Mode of arrival: ambulatory Limitations: no limitations History of Present Illness HPI narrative: For 9-year-old female presents to the emergency department with a thunderclap headache that started when she was doing a bowel prep in the wee hours this morning. Notes photophobia, bilateral headache. No focal neurological changes otherwise. No numbness or tingling. No head trauma. No injury. Does not take any anticoagulants. She says that she does sometimes get headaches when she drinks and they are similar in location that this is certainly more intense. She has no prior history of head CT, major concussion, prior brain surgery, malformation, cysts or other intracranial pathology. No history of seizure disorder. No loss of consciousness. She called the triage line and they advised her to take Tylenol. She canceled her colonoscopy due to the headache. Has not tried other medications. Does have some mild nausea also. Reports her past medical history notable for ADHD, GERD. Home meds reviewed. ROS is notable for the neurological and HEENT symptoms as above. Otherwise also endorses a mild rhinitis and ear pressure sensation since yesterday afternoon. No fever. Otherwise benign times 12 systems. Related Data Home Medications ?Medication ?Instructions ?Recorded ?Confirmed cholecalciferol (vitamin D3) 50 50 mcg PO QDAY 01/04/22 09/10/24 mcg (2,000 unit) capsule olopatadine 0.7 % eye drops 1 drp ophthalmic (eye) BID 01/04/22 09/10/24 diclofenac sodium 75 mg mg PO PRN 04/29/24 08/19/24 tablet,delayed release glucosamine-chondroitin 250 mg-200 1 tab PO DAILY 08/19/24 09/10/24 mg tablet levonorgestrel (Mirena) 1 device intrauterine ONCE 08/19/24 09/10/24 magnesium oxide 400 mg PO QDAY 08/19/24 09/10/24 Previous Rx's ?Medication ?Instructions ?Recorded prochlorperazine maleate 10 mg 10 mg PO Q8H PRN #10 tabs 06/04/22 tablet (Compazine) ondansetron 4 mg disintegrating 4 mg PO Q6H PRN nausea and 06/21/22 tablet vomiting #30 tabs pantoprazole 40 mg tablet,delayed 40 mg PO QDAY #90 tabs 04/29/24 release phentermine 37.5 mg capsule 37.5 mg PO QDAY #30 caps 07/07/24 montelukast 10 mg tablet 10 mg PO QHS #90 tabs 07/29/24 prednisone 5 mg tablet See Rx Instructions PO QDAY #13 08/19/24 tabs peg 3350-electrolytes 236 240 ml PO ONCE #1 bottle 08/31/24 gram-22.74 gram-6.74 gram-5.86 gram solution (Golytely) peg 3350-electrolytes 236 240 ml PO ONCE #1 bottle 08/31/24 gram-22.74 gram-6.74 gram-5.86 gram solution (Golytely) doxycycline hyclate 100 mg tablet 100 mg PO BID #20 tabs 09/01/24 dextroamphetamine-amphetamine 20 20 mg PO QDAY #30 tabs 09/07/24 mg tablet Allergies Allergy/AdvReac Type Severity Reaction Status Date / Time celecoxib Allergy Intermediate Rash Verified 09/10/24 09:25 lansoprazole Allergy Intermediate Verified 09/10/24 09:25 latex Allergy Intermediate Rash Verified 09/10/24 09:25 Sulfa (Sulfonamide Allergy Intermediate Rash Verified 09/10/24 09:25 Antibiotics) PFSH PFS Medical History Attention deficit disorder ?F98.8 - Other specified behavioral and emotional disorders with onset usually occurring in childhood and adolescence (ICD-10) Asthma ?J45.909 - Unspecified asthma, uncomplicated (ICD-10) Psoriasis ?L40.9 - Psoriasis, unspecified (ICD-10) Psoriatic arthritis ?L40.50 - Arthropathic psoriasis, unspecified (ICD-10) Obesity ?E66.9 - Obesity, unspecified (ICD-10) GERD (gastroesophageal reflux disease) ?K21.9 - Gastro-esophageal reflux disease without esophagitis (ICD-10) Adenomatous polyp of colon ?D12.6 - Benign neoplasm of colon, unspecified (ICD-10) Mass of right axilla ?R22.31 - Localized swelling, mass and lump, right upper limb (ICD-10) Seasonal allergies (10/09/11) ?J30.2 - Other seasonal allergic rhinitis (ICD-10) Calculus of kidney ?N20.0 - Calculus of kidney (ICD-10) Chronic urticaria ?L50.8 - Other urticaria (ICD-10) Back pain ?M54.9 - Dorsalgia, unspecified (ICD-10) Allergy to latex (05/04/09) ?Z91.040 - Latex allergy status (ICD-10) Surgical History Status post tonsillectomy ?Z90.89 - Acquired absence of other organs (ICD-10) Status post delivery ?Z98.891 - History of uterine scar from previous surgery (ICD-10) Status post cervical spinal arthrodesis ?Z98.1 - Arthrodesis status (ICD-10) Family History Other Crohn's disease 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 Smoked for 9 years What is your current living situation?: I presently have a place to live Problems where you live: no known problems In the past 12 months, utilities in danger of being shut off: no In past 12 months, lack of transportation kept you from medical appts, meetings, work, or getting things needed for daily living: no In the past 12 mos, have been you worried that your food would run out before you had money to buy more?: never true In the past 12 mos, the food you bought just didn't last and you didn't have money to buy more?: never true Smoking Status: Former smoker Do you use any of these nicotine containing products: None Second hand tobacco smoke exposure: No How often do you have a drink containing alcohol: 2-3 times a week How many standard drinks containing alcohol do you have on a typical day: 3 or 4 How often do you have six or more drinks on one occasion: Never AUDIT-C Alcohol total score: 4 Non-prescribed substance use: denies use How often does anyone, including family, friends and others, physically hurt you : never How often does anyone, including family, friends and others, insult or talk down to you: never How often does anyone, including family, friends and others, threaten you with harm: never How often does anyone, including family, friends and others, scream or curse at you: never Exam Const: Vital Signs, click to edit/add: Vital Signs - 24 hr 09/10/24 09:13 Temperature 99.1 F Pulse Rate [Pulse Oximeter] 76 Respiratory Rate 18 Blood Pressure [Ri ght Upper Arm] 135/96 H Pulse Oximetry 97 Oxygen Delivery Me thod Room Air Documenting provider has reviewed patient's vital signs: yes Common normals: no apparent distress and alert General appearance: well kempt Other: Insight fair. Well nourished well hydrated. HENMT: Common normals: normocephalic, TM's normal bilaterally, moist oral mucous membranes and oropharynx normal Head and scalp: normocephalic Face and sinus: normal facial exam and face symmetric Tympanic membrane: TM's normal bilaterally Mouth: oral and palatal mucosa normal Throat: posterior oropharynx normal Eye: Common normals: PERRL, EOMs intact bilaterally, conjunctivae normal and fundi normal bilaterally General eye: normal appearance of both eyes Conjunctiva: conjunctiva(e) normal Pupil: PERRL Direct Ophthalmoscopy: fundi normal bilaterally Neck & C-Spine: Common normals: full ROM and no lymphadenopathy General: normal visual inspection Resp: Common normals: normal respiratory effort, no use of accessory muscles and clear to auscultation bilaterally Effort & inspection: able to speak in complete sentences Auscultation: clear to auscultation bilaterally Cardio: Common normals: regular rate, regular rhythm, S1 normal heart sound, S2 normal heart sound and no murmurs Rate: regular rate Rhythm: regular rhythm Heart sounds: S1 normal and S2 normal GI: Common normals: Normal to inspection, nondistended, normoactive bowel sounds present, soft to palpation, non-tender, no hepatosplenomegaly and no masses Palpation: soft and no hepatosplenomegaly Back & Pelvis: Common normals: thoracic and lumbar spine normal to inspection Extremity: Common normals: normal to inspection and normal capillary refill Neuro: Candace Coma Scale: document GCS findings (15) Common normals: CN's II-XII intact bilaterally, moves all extremities and gait normal Se nsorium/orientation: alert Speech: speech normal Motor exam: strength 5/5 throughout, no pronator drift and no movement abnormalities noted Psych: Appearance: well kempt Attitude: engaged Activity/motor behavior: appropriate eye contact Insight: fair Judgement: fair Skin: Common normals: no rashes or lesions noted General skin exam: no rashes or lesions noted Course Course ED Course: 49-year-old female with under clap headache with bowel prep this morning. Differential diagnosis including aneurysm, intracranial hemorrhage, CVA. More likely migraine due to dehydration, tension headache, viral illness or other similar etiology. Cannot exclude Chiari malformation, other intracranial fluid abnormality, mass or more dangerous pathology. Recommended CT of the head. I am expecting this to be normal in the will treat with Toradol, Compazine and 1 L of LR. Basic labs to ensure no electrolyte abnormality or anemia. Await findings. Reevaluation(s) Time of Reevaluation #1: 10:59 Reevaluation #1: Patient feeling a little bit better after Toradol, Compazine and IV fluids. We discussed her reassuring CT findings and other than the hemoglobin of 10, benign and reassuring lab work. Because of the hemoglobin, I do recommend that she undergo bowel prep again and reschedule her colonoscopy. She begrudgingly agrees. Alarm symptoms reviewed that would warrant ED presentation. Okay to continue Tylenol and ibuprofen as needed for the headache. Push fluids today, rest, resume typical activities tomorrow. Written instructions provided. Vital Signs Vital signs: Initial Vital Signs Temperature 99.1 F 09/10/24 09:13 Temperature Source Temporal Artery Scan 09/10/24 09:13 Pulse Rate 76 09/10/24 09:13 Respiratory Rate 18 09/10/24 09:13 Blood Pressure 135/96 H 09/10/24 09:13 Blood Pressure Mean 109 H 09/10/24 09:13 Blood Pressure Position Sitting 09/10/24 09:13 Pulse Oximetry 97 09/10/24 09:13 Oxygen Delivery Method Room Air 09/10/24 09:13 Vital Signs Temperature 99.1 F 09/10/24 09:13 Pulse Rate 76 09/10/24 09:13 Respiratory Rate 18 09/10/24 09:13 Blood Pressure 135/96 H 09/10/24 09:13 Pulse Oximetry 97 09/10/24 09:13 Oxygen Delivery Method Room Air 09/10/24 09:13 Temperature 99.1 F 09/10/24 09:13 Pulse Rate 76 09/10/24 09:13 Respiratory Rate 18 09/10/24 09:13 Blood Pressure 135/96 H 09/10/24 09:13 Pulse Oximetry 97 09/10/24 09:13 Oxygen Delivery Method Room Air 09/10/24 09:13 Medications Administered Medications: Discontinued Medications Generic Name Dose Route Start Last Admin Trade Name Lucian PRN Reason Stop Dose Admin Lactated Ringer's 1,000 mls @ 1,000 mls/hr 09/10/24 09:40 09/10/24 10:51 Lactated Ringers 1000 Ml IV 09/10/24 10:39 Infused .Q1H ONE Infusion Ketorolac Tromethamine 15 mg 09/10/24 10:04 09/10/24 10:16 Ketorolac 15 Mg/Ml Inj IVP 09/10/24 10:05 15 mg ONCE ONE Administration Prochlorperazine 5 mg 09/10/24 10:04 09/10/24 10:16 Prochlorperazine 5 Mg/Ml Vial IVP 09/10/24 10:05 5 mg ONCE ONE Administration Medical Decision Making Lab Data Lab results reviewed: Yes I reviewed the patient's lab results Lab results narrative: Labs reassuring. Labs: Lab Results 09/10/24 Range/Units 09:55 WBC 4.79 (4.50-11.00) K/uL RBC 4.26 (4.00-5.20) m/uL Hgb 10.0 L (12.0-16.0) gm/dL Hct 32.6 L (33.0-51.0) % MCV 77 L (80-100) fL MCH 24 L (26-34) pg MCHC 31 L (32-36) gm/dL RDW Coeff of Maria Dolores 15.3 (11.5-15.5) % Plt Count 265 (140-440) K/uL Neut % (Auto) 56.6 (42.0-72.0) % Lymph % (Auto) 33.0 (20-44) % [place] % (Auto) 7.3 (0.0-11.0) % Eos % (Auto) 2.5 (0.0-7.0) % Baso % (Auto) 0.4 (0.0-3.0) % Neut # (Auto) 2.71 (1.7-7.0) K/uL Lymph # (Auto) 1.58 (0.90-2.90) K/uL [place] # (Auto) 0.30 (0.00-0.90) K/UL Eos # (Auto) 0.12 (0.00-0.50) K/uL Baso # (Auto) 0.02 (0.00-0.30) K/uL Abs Immat Gran (auto) 0.01 (0.00-0.30) K/uL Imm/Tot Granulo (auto) 0.2 % Sodium 136 (135-149) mmol/L Potassium 4.1 (3.6-5.1) mmol/L Chloride 102 (96-114) mmol/L Carbon Dioxide 26 (20-32) mmol/L Anion Gap 8 (7-15) mEq/L BUN 11 (5-24) mg/dL Creatinine 0.8 (0.5-1.5) mg/dL Estimated Creat Clear 90.85 Estimated GFR 91 ml/min Glucose 101 (60-115) mg/dL Calcium 9.5 (8.4-10.6) mg/dL C-Reactive Protein < 0.5 L (0.5-1.0) mg/dL SARS-CoV-2 (PCR) Negative SARS-CoV-2 (Negative) Influenza Type A (PCR) Negative PCR FLU A (Negative) Influenza Type B (PCR) Negative PCR FLU B (Negative) RSV (PCR) Negative PCR RSV (Negative) Imaging Data CT scan - head: Attestation: I have reviewed the pertinent imaging results. My impression: Normal head CT. Radiologist's impression: No intracranial hemorrhage. Normal appearance of the white matter. No acute or subacute cortically based infarct. No mass or mass effect. Normal ventricles. No skull fractures. No worrisome focal bone lesion. IMPRESSION: Normal head CT. Please note that all CT scans at this facility use dose modulation, iterative reconstruction, and/or weight-based dosing when appropriate to reduce radiation dose to as low as reasonably achievable. Dictated by Chelita Curtis MD @ 09/10/2024 10:12:44 AM Discharge Plan Discharge Clinical Impression: Headache Patient Disposition: Home w/ Parent or Adult Condition: Stable Instructions: Acute Headache (DC) Additional Instructions: As we discussed, the CT does not show any signs of aneurysm, mass, fluid flow problem or other obstruction. This is great news. I think that your headache was triggered by the bowel prep and sudden fluid and electrolyte shifts. Hopefully the fluids, Compazine and Toradol that your given continue to help your symptoms. I would recommend you take a 1000 mg of Tylenol when you get home, rest, eat something salty and take it easy today. If you have new neurological changes, severe worsening of headache, seizure, loss of consciousness or other significant abnormality, then I would recommend re- evaluation. The only pertinent finding in your blood work does show that your hemoglobin is 10 so I would recommend that you repeat a bowel prep and have this colonoscopy performed as your refer primary provider has recommended as well. You should feel much better by tomorrow. Activity Level: Activity as Tolerated Discharge Diet: Regular Prescriptions: No Action glucosamine-chondroitin 250-200 mg tablet 1 tab PO DAILY Rx Instructions: give after food/meal magnesium oxide 400 mg magnesium tablet 400 mg PO QDAY Mirena 21 mcg/24hr (up to 8 yrs) 52 mg intrauterine device 1 device intrauterine ONCE Rx Instructions: as a single dose prednisone 5 mg tablet See Rx Instructions PO QDAY Qty: 13 2RF Rx Instructions: 10 mg QD for 3D, then 5 mg QD orally every day; diclofenac sodium 75 mg tablet,delayed release (DR/EC) PO PRN Patient Comments: TAKE 1 TABLET BY MOUTH TWICE A DAY NEEDED pantoprazole 40 mg tablet,delayed release (DR/EC) 40 mg PO QDAY Qty: 90 3RF phentermine 37.5 mg capsule 37.5 mg PO QDAY Qty: 30 2RF Rx Instructions: must administer 30 minutes before or 1-2 hours after breakfast prochlorperazine maleate [Compazine] 10 mg tablet 10 mg PO Q8H PRNQty: 10 0RF olopatadine 0.7 % drops 1 drp ophthalmic (eye) BID cholecalciferol (vitamin D3) 50 mcg (2,000 unit) capsule 50 mcg PO QDAY ondansetron 4 mg tablet,disintegrating 4 mg PO Q6H PRN (Reason: nausea and vomiting) Qty: 30 1RF montelukast 10 mg tablet 10 mg PO QHS Qty: 90 3RF peg 3350-electrolytes [Golytely] 236-22.74-6.74 -5.86 gram recon soln 240 ml PO ONCE Qty: 1 0RF Rx Instructions: 4pm day prior to procedure. Drink 8oz glass every 15 minutes until 1/2 of solution is gone. 6 hours prior to procedure drink 8 oz glass every 15 minutes until remaining solution gone. peg 3350-electrolytes [Golytely] 236-22.74-6.74 -5.86 gram recon soln 240 ml PO ONCE Qty: 1 0RF Rx Instructions: 4pm day prior to procedure. Drink 8oz glass every 15 minutes until 1/2 of solution is gone. 6 hours prior to procedure drink 8 oz glass every 15 minutes until remaining solution gone. doxycycline hyclate 100 mg tablet 100 mg PO BID Qty: 20 0RF dextroamphetamine-amphetamine 20 mg tablet 20 mg PO QDAY Qty: 30 0RF Follow Up/Referrals: Mitul Donato MD [Primary Care Provider] - Stand Alone Forms: [employer] Info Instructions
[2024-09-10] MEDS: LACTATED RINGERS 1000 ML 1,000 ML IV (10:01)
[2024-09-10 10:08] LABS: Basophils Absolute Auto 0.02 K/uL (0.00-0.30); Basophils Percent Auto 0.4 % (0.0-3.0); Eosinophils Absolute Auto 0.12 K/uL (0.00-0.50); Eosinophils Percent Auto 2.5 % (0.0-7.0); Hematocrit 32.6 % (33.0-51.0); Immature Granulocytes Abs Auto 0.01 K/uL (0.00-0.30); Immature Granulocytes Pct Auto 0.2 %; Lymphocytes Absolute Auto 1.58 K/uL (0.90-2.90); Mean Corpuscular HGB Conc 31 gm/dL (32-36); Mean Corpuscular Hemoglobin 24 pg (26-34); Mean Corpuscular Volume 77 fL (80-100); Monocytes Percent Auto 7.3 % (0.0-11.0); Neutrophils Absolute Auto 2.71 K/uL (1.7-7.0); Neutrophils Percent Auto 56.6 % (42.0-72.0); Platelet Count* 265 K/uL (140-440); RDW Coefficient of Variation % 15.3 % (11.5-15.5); Red Blood Count 4.26 m/uL (4.00-5.20); White Blood Count* 4.79 K/uL (4.50-11.00)
[2024-09-10 10:09] LABS: Slide Review Reflex No
[2024-09-10] MEDS: PROCHLORPERAZINE 5 MG/ML VIAL IVP (10:16)
[2024-09-10] MEDS: KETOROLAC 15 MG/ML inj IVP (10:16)
--- OUTSIDE RECORDS SUMMARY | 2024-09-10 10:17 | XMS_ITS | Encounter Summary ---
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
--- OUTSIDE RECORDS SUMMARY | 2024-09-10 10:17 | XMS_ITS | Encounter Summary ---
Author Organization [facility] Address [address] [place] [id number] Care Team Providers Care Dust Mill Operator Name Role Phone Rohit Donato MD Primary Care Provider [phone] Reason for Visit * Diagnostic Imaging CT Scan (Routine) - Closed Specialty Diagnoses / Procedures Referred By Kat fitzpatrick Referred To Contact Radiology. 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 Please review separate sterilization tech report for further detail. GEOVANNY TOUSSAINT MD Narrative 08/07/2024 11:39 AM CDT Radiologist consult for cardiology INDICATION: Family history cardiovascular disease. Diabetes. High blood pressure. Overweight. COMPARISON: None FINDINGS: Noncontrasted calcium score performed. Molder Closed Molds shows surgical hardware in the cervical spine [...] COMPARISON: None FINDINGS: Noncontrasted calcium score performed. Molder Closed Molds shows surgical hardware in the cervical spine otherwise unremarkable. No dominant coronary calcified plaques. Mild degenerative changes in the thoracic spine. Detail of the included portion of the lungs shows punctate calcified right upper lobe granuloma. IMPRESSION: Granuloma right lung. Please review separate sterilization tech report for further detail. GEOVANNY TOUSSAINT MD [...] without incident. Coronary calcification was analyzed using [employer] calcium scoring software. Scan protocol was optimized [...] as heart attack and stroke. MANAGEMENT The [place] [employer]/[place] College [employer] (AHA/ACC) 2018 Guideline on [...] appointment with one of our Preventive Cardiologists ([email or web address] References: 1. 2018 AHA/ACC/AACVPR/AAPA/ABC/ACPM/ADA/AGS/APhA/ASPC/NLA/PCNA Guideline on the Management of Blood Cholesterol 2. CAC-DRS: Coronary Artery Calcium Data and Reporting System. An expert consensus document of the Society of Cardiovascular Computed Tomography (SCCT) 3. Johnny Lucero et al. J Am Radha Cardiol. 2021September 26;79(19):8704-7893; associated calculator at https://www.cac-tools.com (used for calculation [...] without incident. Coronary calcification was analyzed using [employer] calcium scoring software. Scan protocol was optimized [...] as heart attack and stroke. MANAGEMENT The [place] [employer]/[place] College [employer]iology (AHA/ACC) 2018 Guideline on [...] appointment with one of our Preventive Cardiologists ([email or web address]). References: 1. 2018 AHA/ACC/AACVPR/AAPA/ABC/ACPM/ADA/AGS/APhA/ASPC/NLA/PCNA Guideline on the Management of Blood Cholesterol 2. CAC-DRS: Coronary Artery Calcium Data and Reporting System. An expert consensus document of the Society of Cardiovascular Computed Tomography (SCCT) 3. Johnny Lucero et al. J Am Radha Cardiol. 2021September 26;79(19):8139-7003; associated calculator at https://www.cac-tools.com (used for calculation of calcium score percentiles in patients ages 30-45) ARABELLA ALMEIDA MD us Referred Self MD JACOBS CT ORDERABLES Final Result documented in this encounter Visit Diagnoses Diagnosis Family history of cardiovascular disease Family history of other cardiovascular diseases Diabetes (H) High blood pressure Unspecified essential hypertension Overweight documented in this encounter Care Teams Dust Mill Operator Relationship Specialty Start Date End Date Rohit Donato MD PCP - General Family Medicine 05/30/20 documented as of this encounter
--- OUTSIDE RECORDS SUMMARY | 2024-09-10 10:17 | XMS_ITS | Clinical Summary ---
Author Organization [facility] Address [address] [place] [address] Care Team Providers Care Civil Engineering Professional Name Role Phone Rohit Donato MD Primary Care Provider [phone] Allergies Active Allergy Reactions Criticality Noted Date [...] Description 08/07/2024 11:20 AM CDT Ancillary Procedure [address] [address] Family history of cardiovascular disease; [...] on file Legal Sex Female 9:32 AM INSIDE STEWARD/STEWARDESS Gender Identity Not on file Sexual Orientation Not on file Last Filed Vital Signs Vital Sign Reading Time Taken Comments Blood Pressure 118/76 05/30/2020 2:00 PM INSIDE STEWARD/STEWARDESS Pulse 87 05/30/2020 2:00 PM INSIDE STEWARD/STEWARDESS Temperature 37.1 C (98.8 F) 05/30/2020 2:00 PM INSIDE STEWARD/STEWARDESS Respiratory Rate 16 05/30/2020 2:00 PM INSIDE STEWARD/STEWARDESS Oxygen Saturation 97% 05/30/2020 2:00 PM INSIDE STEWARD/STEWARDESS Inhaled Oxygen Concentration - - Weight 102.5 kg (226 lb) 05/30/2020 9:00 AM INSIDE STEWARD/STEWARDESS Height 175.3 cm (5' 9) 05/30/2020 9:00 AM INSIDE STEWARD/STEWARDESS Body Mass Index 33.37 05/30/2020 9:00 AM INSIDE STEWARD/STEWARDESS Plan of Treatment Health Maintenance Due Date [...] IMPRESSION: Granuloma right lung. Please review separate remote coders report for further detail. GEOVANNY TOUSSAINT MD Narrative 08/07/2024 11:39 AM CDT Radiologist consult for cardiology INDICATION: Family history cardiovascular disease. Diabetes. High blood pressure. Overweight. COMPARISON: None FINDINGS: Noncontrasted calcium score performed. Office Automation Clerk shows surgical hardware in the cervical spine [...] COMPARISON: None FINDINGS: Noncontrasted calcium score performed. Office Automation Clerk shows surgical hardware in the cervical spine otherwise unremarkable. No dominant coronary calcified plaques. Mild degenerative changes in the thoracic spine. Detail of the included portion of the lungs shows punctate calcified right upper lobe granuloma. IMPRESSION: Granuloma right lung. Please review separate remote coders report for further detail. GEOVANNY TOUSSAINT MD [...] without incident. Coronary calcification was analyzed using Agentek calcium scoring software. Scan protocol was optimized [...] as heart attack and stroke. MANAGEMENT The [place] Heart Association/Swedish College of Cardiology (AHA/ACC) 2018 Guideline on [...] appointment with one of our Preventive Cardiologists ([email or web address]). References: 1. 2018 AHA/ACC/AACVPR/AAPA/ABC/ACPM/ADA/AGS/APhA/ASPC/NLA/PCNA Guideline on the Management of Blood Cholesterol 2. CAC-DRS: Coronary Artery Calcium Data and Reporting System. An expert consensus document of the Society of Cardiovascular Computed Tomography (SCCT) 3. fabrice Gutierrez al. J Am Radha Cardiol. 2021September 26;79(19):6658-1753; associated calculator at https://www.cac-tools.com (used for calculation [...] without incident. Coronary calcification was analyzed using Agentek calcium scoring software. Scan protocol was optimized [...] as heart attack and stroke. MANAGEMENT The [place] Heart Association/Swedish College of Cardiology (AHA/ACC) 2018 Guideline on [...] appointment with one of our Preventive Cardiologists ([email or web address]). References: 1. 2018 AHA/ACC/AACVPR/AAPA/ABC/ACPM/ADA/AGS/APhA/ASPC/NLA/PCNA Guideline on the Management of Blood Cholesterol 2. CAC-DRS: Coronary Artery Calcium Data and Reporting System. An expert consensus document of the Society of Cardiovascular Computed Tomography (SCCT) 3. Johnny Lucero, et al. J Am Radha Cardiol. 2021September 26;79(19):9880-1919; associated calculator at https://www.cac-tools.com (used for calculation of calcium score percentiles in patients ages 30-45) ARABELLA ALMEIDA MD us Referred Self IMRhonda CT ORDERABLES Final Result from Last 3 Months Insurance [employer] Care Teams Civil Engineering Professional Relationship Specialty Start Date End Date Rohit Donato MD PCP - General Family Medicine 05/30/20
--- OUTSIDE RECORDS SUMMARY | 2024-09-10 10:17 | XMS_ITS | Clinical Summary ---
Author Organization [facility] Address [address] [address] Phone Care Team Providers Care Custom Clothier Name Role Phone Elsewhere, Pcp Primary Care [...] file Insurance [employer] [id number] Care Teams Custom Clothier Relationship Specialty Start Date End Date Elsewhere, Pcp PCP - General 01/15/15
--- OUTSIDE RECORDS SUMMARY | 2024-09-10 10:17 | XMS_ITS | Clinical Summary ---
Author Organization [facility] Address [address] [place] [address] Care Team Providers Care Teradata Solution Architect Name Role Phone Mitul Donato MD Primary Care Provider Allergies Active Allergy Reactions Criticality Noted Date Comments Celecoxib Edema 04/29/2008 Lansoprazole 07/22/2008 Latex Dermatitis Omeprazole Hives 02/19/2008 Sulfa (Sulfonamide Antibiotics) Medications DME Adjustable monitor stand for work computer. Use daily to help with posture to protect neck. 1 Each 0 0 Active Nvlrxzar-Sx-Smm- Fe-FA ( VITAMIN) Tab tablet Take 1 [...] on file Legal Sex Female 6:31 AM DATA REPORTING ANALYST Gender Identity Not on file Sexual Orientation Not on file Obstetrics History Last Filed Vital Signs Vital Sign Reading Time Taken Comments Blood Pressure 110/70 12/18/2018 10:35 AM CDT Pulse 80 12/18/2018 10:35 AM CDT Temperature 36.7 C (98.1 F) 04/26/2017 9:53 AM DATA REPORTING ANALYST Respiratory Rate 16 12/18/2018 10:35 AM CDT Oxygen Saturation 100% 04/26/2017 9:53 AM DATA REPORTING ANALYST Inhaled Oxygen Concentration - - Weight 103.9 [...] booster 03/12/2023 03/12/2013, 06/14 (Completed outside of [facility]), 07/25/2007, Additional history exists COVID-19 vaccine series ( season) 2024 Influenza Vaccine (Season Ended) 2025 04/30/2014, 02/04/2013, 03/24/2012, Additional history exists Tdap Completed 03/12/2013, 07/25/2007 Pneumococcal series for age 6-49 Aged Out No longer eligible based on patient's age to complete this topic Medical Devices Implanted Type Area Web Design Specialist Device Identifier Shelf Expiration Date Model / Serial / Lot Plate Cerv Ant 42.5mm Atlantisvision 976-142 - [id number] Implanted:Qty: 1 on 07/23/2008 at [facility] Spine Implants Spine SOFAMOR DANEK 976-142# / / [id number] spacer Colton/Canclls 7mm A Lordotic Acf Fd [id number] [[id number]] Implanted:Qty: 1 on 07/23/2008 at [facility] Explanted:at [facility] (Quantity not on file) Spine Musculoskeletal Transplant 06/17/2011 [id number]# / [id number] / [id number] tty Progenix Dbm 1cc [[id number]] Implanted:Qty: 1 on 07/23/2008 at [facility] Explanted:at [facility] (Quantity not on file) Spine Medtronic 03/17/2010 [id number]# / [id number] / Screw Fix 4.0x14 Self Drill - [id number] Implanted:Qty: 6 on 07/23/2008 at [facility] Spine SOFAMOR ANDRAE 976-634# / / Spacer Colton/Canclls 7mm A Lordotic Acf Fd [id number] - [id number] Implanted:Qty: 1 on 07/23/2008 at [facility] Explanted:at [facility] (Quantity not on file) Spine Musculoskeletal Transplant 05/01/2011 [id number]# / [id number] / Procedures Procedure Name Priority Date/Time Associated Diagnosis Comments WATCH INSPECTOR THIN PREP PAP SCREEN IMAGED Routine 02/11/2018 8:30 AM CDT CHOLESTEROL,TOTAL Routine 02/15/2003 9:3 0 AM CDT from Last 3 Months or Most Recently Relevant to Health Maintenance Results * WATCH INSPECTOR THIN PREP PAP SCREEN IMAGED (02/11/2018 8:30 AM CDT) Case Report Gynecologic Cytology Report Case: [id number] Authorizing Provider: Mitul Donato Collected: 02/11/2018 0830 First Screen: Mendy Arellano Received: 02/11/2018 1836 Specimen: WATCH INSPECTOR ThinPrep Vial Screening, Cervical/Vaginal 02/20/2018 2:50 PM CDT [facility] INTERPRETATION/ RESULT NEGATIVE FOR INTRAEPITHELIAL LESION OR MALIGNANCY (NIL) (none) 02/20/2018 2:50 PM CDT [facility] at 1450 CDT SPECIMEN ADEQUACY Satisfactory for evaluation No endocervical component seen 02/20/2018 2:50 PM CDT [facility] HPV REQUEST HPV and PAP 02/20/2018 2:50 PM CDT [facility] Automated Review Successful 02/20/2018 2:50 PM CDT [facility] Comment:Specimen processed s uccessfully by automated hat blocker device, ThinPrep Imaging System, [employer] ANCILLARY TESTING WATCH INSPECTOR HPV Ordered, Please see separate report 02/20/2018 2:50 PM CDT [facility] Note The pap test is [...] lesions. Cytology is screened and interpreted at [facility] - [address], [place] [address] and [facility] - [address]; [place] [address] and [facility] - [address]; [place] [address] and [facility] [address]; [place] [address] 02/20/2018 2:50 PM CDT [facility] Other (Cervical/Vagina l) 02/11/2018 8:30 AM CDT 02/11/2018 6:36 PM CDT Mitul Donato MD PATHOLOGY/CYTOLOGY Final Re sult [facility] [address] [place] [address], * (ABNORMAL) CHOLESTEROL,TOTAL (02/15/2003 9:30 AM CDT) CHOLESTEROL,TOT AL 219(H) 110 - 199 mg/dL 02/15/2003 9:30 AM CDT Narrative 10/21/2003 6:35 AM CDT Ordered by an unspecified provider. Other Clinical Staff CHEMISTRY Final Resul t from Last 3 Months or Most Recently Relevant to Health Maintenance Insurance [facility] Advance Directives * Full Code (Latest Code Status on File) Date Activated Date Inactivated Comments 07/23/2008 11:00 AM 07/25/2008 3:01 PM * Full Code Date Activated Date Inactivated Comments 07/23/2008 6:30 AM 07/23/2008 11:00 AM Care Teams Teradata Solution Architect Relationship Specialty Start Date End Date Mitul Donato MD PCP - General 07/23/08
[2024-09-10 10:25] LABS: Chloride* 102 mmol/L (96-114); Potassium* 4.1 mmol/L (3.6-5.1); Sodium* 136 mmol/L (135-149)
[2024-09-10 10:29] LABS: Anion Gap 8 mEq/L (7-15); Blood Urea Nitrogen* 11 mg/dL (5-24); Calcium* 9.5 mg/dL (8.4-10.6); Carbon Dioxide* 26 mmol/L (20-32); Creatinine* 0.8 mg/dL (0.5-1.5); Est. Creatinine Clearance* 90.85; Estimated Glomerular Filt Rate 91 ml/min; Glucose* 101 mg/dL (60-115)
[2024-09-10 10:37] LABS: C Reactive Protein* < 0.5 mg/dL (0.5-1.0)
[2024-09-10 10:48] LABS: PCR FLU A Negative PCR FLU A (Negative); PCR FLU B Negative PCR FLU B (Negative); PCR RSV Negative PCR RSV (Negative); SARS PCR* Negative SARS-CoV-2 (Negative)
== END 2024-09-10 11:08 | disposition home or self-care (01) ==
PROVIDERS: Emergency Provider Family Medicine; PCP Family Medicine
DX: R51.9 Headache, unspecified (principal)
CPT/HCPCS: 36415; 70450; 80048; 85025; 86140; 87631; 96374; 96375; 99284; J0780; J1885; J7120

== ENCOUNTER 2024-09-29 06:29 | Outpatient (CLI) | payer BC, SELFPAY ==
--- NOTE | 2024-09-29 08:12 | P.ANES_ITS ---
Anesthesia Charges Start Date/Time Anesthesia Start Date: 09/29/24 Anesthesia Start Time: 07:36 Stop Date/Time Anesthesia Stop Date: 09/29/24 Anesthesia Stop Time: 08:08 Coding CPT Codes CPT Codes: OTF LWR INTST NDSC NOS - 52439 ([id number]) P2 - PATIENT W/MILD SYST DISEASE, QK - TOY PACKER 2-4 CNCRNT ANES PROC, QX - INSOLE COVERER SVC W/ MD MED DIRECTION
--- NOTE | 2024-09-29 08:12 | W.ANESCHARGE ---
Anesthesia Charges Start Date/Time Anesthesia Start Date: 09/29/24 Anesthesia Start Time: 07:36 Stop Date/Time Anesthesia Stop Date: 09/29/24 Anesthesia Stop Time: 08:08 Coding CPT Codes CPT Codes: OTF LWR INTST NDSC NOS - 90497 ([id number]) P2 - PATIENT W/MILD SYST DISEASE, QK - CARPENTER AND JOINER 2-4 CNCRNT ANES PROC, QX - LABORER STORES SVC W/ MD MED DIRECTION
--- NOTE | 2024-09-29 10:46 | P.ANES_ITS ---
Anesthesia Charges Start Date/Time Anesthesia Start Date: 09/29/24 Anesthesia Start Time: 07:36 Stop Date/Time Anesthesia Stop Date: 09/29/24 Anesthesia Stop Time: 08:08 Coding CPT Codes CPT Codes: OTF LWR INTST NDSC NOS - 34418 ([id number]) P2 - PATIENT W/MILD SYST DISEASE, QK - INSURANCE ATTORNEY 2-4 CNCRNT ANES PROC, QX - MEDIA RELATIONS INTERN SVC W/ MD MED DIRECTION
--- NOTE | 2024-09-29 10:46 | W.ANESCHARGE ---
Anesthesia Charges Start Date/Time Anesthesia Start Date: 09/29/24 Anesthesia Start Time: 07:36 Stop Date/Time Anesthesia Stop Date: 09/29/24 Anesthesia Stop Time: 08:08 Coding CPT Codes CPT Codes: OTF LWR INTST NDSC NOS - 58891 ([id number]) P2 - PATIENT W/MILD SYST DISEASE, QK - MEAT AND SEAFOOD MANAGER 2-4 CNCRNT ANES PROC, QX - GREEN END DEPARTMENT SUPERVISOR SVC W/ MD MED DIRECTION
== END 2024-09-29 06:30 | disposition home or self-care (01) ==
LOC: OP CLINIC 06:30
PROVIDERS: PCP Family Medicine; Visit Provider Surgery
DX: Z12.11 Encounter for screening for malignant neoplasm of colon (principal); D12.8 Benign neoplasm of rectum; Z86.0109 Personal history of other colon polyps
CPT/HCPCS: 00811; 00812; 45385; 88305; J2704

== ENCOUNTER 2024-12-16 16:14 | Outpatient (CLI) | payer BC, SELFPAY ==
[2024-12-18 06:54] LABS: HPV Source Cervix
[2024-12-21 12:46] LABS: Pap Test Digital Imaging Done
== END 2024-12-16 16:15 | disposition home or self-care (01) ==
PROVIDERS: PCP Family Medicine; Visit Provider Family Medicine
DX: Z12.4 Encounter for screening for malignant neoplasm of cervix (principal); Z11.51 Encounter for screening for human papillomavirus (HPV)
CPT/HCPCS: 87624; 87625; 88141; 88142; 88175

== ENCOUNTER 2025-04-06 10:15 | Outpatient (CLI) | payer BC, SELFPAY ==
--- NOTE | 2025-04-06 10:45 | CRLHL7_ITS ---
For Patients: As a result of the Century Cures Act, medical imaging exams and procedure reports are released immediately into your electronic medical record. You may view this report before your referring provider. If you have questions, please contact your health care provider. INDICATION: BILATERAL SCREENING MAMMOGRAM, ASYMPTOMATIC 49 Y/O FEMALE COMPARISON: 10/14/2023, 10/09/2022, 09/14/2021 TECHNIQUE: Digital mammogram in CC and MLO projections including computer-aided detection (CAD) and tomosynthesis. BREAST COMPOSITION: There are scattered areas of fibroglandular density. FINDINGS: No suspicious findings. ASSESSMENT: BI-RADS 1 Negative RECOMMENDATION: Annual screening mammogram. A lay language report of this examination will be provided to the patient. Dictated by: Susana Macias MD @ 04/07/2025 18:53:07 (Electronically Signed)
== END 2025-04-06 10:16 | disposition home or self-care (01) ==
LOC: MAMMO 10:16
PROVIDERS: PCP Family Medicine; Visit Provider Family Medicine
DX: Z12.31 Encounter for screening mammogram for malignant neoplasm of breast (principal)
CPT/HCPCS: 77063; 77067